=== PATIENT | female | born 1940 | race Caucasian/White ===

== ENCOUNTER 2019-12-14 20:44 | Inpatient (IN) | payer MEDICARE, OTHER ==
[~2019-12-14] VITALS: Ht 165.1 cm; Wt 132.0 kg
--- OUTSIDE RECORDS SUMMARY | ~2019-12-14 | XMS | Encounter Summary ---
Demographics + + + | Address | [address] | | | [place] [address] | + + + | Home Phone | | + + + | Preferred Language | Unknown | + + + | Marital Status | | + + + | Sabianist Affiliation | 1077 | + + + | Race | Unknown | + + + | Ethnic Group | Unknown | + + + Author + + + | Author | [facility] | | | and [place] | + + + | Organization | [facility] | | | and [place] | + + + | Address | Unknown | + + + | Phone | Unavailable | + + + Support + + +---------+ + | Name | Relationship | Address | Phone | + + +---------+ + | Chloe Harmon | ECON | Unknown | | + + +---------+ + | Cinthya Pierre ECON | Unknown | | + + +---------+ + Care Team Providers + +------+ + | Care Warp Tier Name | Role | Phone | + +------+ + | Karen Alvarado MD | PCP | | + +------+ + Reason for Visit Auth/Cert +--------+--------+ + + + + | Status | Reason | Specialty | Diagnoses / | Referred By | Referred To | | | | | Procedures | Contact | Contact | +--------+--------+ + + + + | | | | Diagnoses | | Jonathan | | | | | Endometrial | | Mellisa Barry, | | | | | hyperplasia | | MD [address] | | | | | with atypia | | [address] | | | | | | | [address] | | | | | Endometrial | | [place] | | | | | hyperplasia | | [phone] Phone: | | | | | with atypia | | [phone] | | | | | [[phone]] | | Fax: | | | | | Procedures | | [phone] | | | | | ND | | | | | | | LAP,PELVIC | | | | | | | LYMPHADENECT | | | | | | | MIGUEL [place] | | | | | | | INTRAOPERATI | | | | | | | VE SENTINEL | | | | | | | LYMPH NODE | | | | | | | ID W DYE | | | | | | | INJECTION | | | | | | | ND | | | | | | | LAPAROSCOPY | | | | | | | W TOT | | | | | | | HYSTERECTUTE | | | | | | | OMAYRA <=250 | | | | | | | GRAM W | | | | | | | TUBE/OVARY | | | | | | | ROBOTIC | | | | | | | ASSISTED XI | | | | | | | HYSTERECTOMY | | | | | | | WITH | | | | | | | BILATERAL | | | | | | | SALPINGECTOM | | | | | | | Y | | | +--------+--------+ + + + + Encounter Details +--------+ + + + + | Date | Type | Department | Care Team | Description | +--------+ + + + + | 10/09/ | Anesthesia | [facility] | Paul Russo, | | | 2019 | Event | [facility] | [address] | | | | | [facility] [address] | [place] [address] | | | | | [place] | [phone] | | | | | [address] | | | | | | [phone] | Yu Charles, | | | | | | CHITO Student | | +--------+ + + + + Anesthesia Record + + + + + | Procedure Name | Responsible | Anesthesia Start | Anesthesia Stop Time | | | Anesthesiologist | Time | | + + + + + | ROBOTIC ASSISTED XI | Paul Russo MD | 10/09/1923 | 10/09/19 0909 | | HYSTERECTOMY WITH | | | | | BILATERAL | | | | | SALPINGO-OOPHORECTOM | | | | | Y AND BILATERAL | | | | | SENTINEL LYMPH NODE | | | | | EXCISION (Bilateral | | | | | Abdomen) | | | | + + + + + +----+---+ + + | Da | T | Event | Comment | | te | i | | | | | m | | | | | e | | | +----+---+ + + | 02 | 0 | | | | /2 | 6 | | | | 4/ | 4 | | | | 20 | 9 | | | | 20 | | | | +----+---+ + + | | 0 | An Checkout | Pre-use anesthesia machine/equipment checkout. | | | 7 | | | | | 2 | | | | | 3 | | | +----+---+ + + | | 0 | An Start | Reassessment prior to anesthesia induction/procedure. | | | 7 | | | | | 2 | | | | | 3 | | | +----+---+ + + | | 0 | Preoxygenat | | | | 7 | ed | | | | 2 | | | | | 8 | | | +----+---+ + + | | 0 | An | | | | 7 | Induction | | | | 3 | | | | | 1 | | | +----+---+ + + | | 0 | Art Line | | | | 7 | Start | | | | 3 | | | | | 3 | | | +----+---+ + + | | 0 | An | | | | 7 | Intubation | | | | 3 | | | | | 4 | | | +----+---+ + + | | 0 | Art Line | | | | 7 | Stop | | | | 3 | | | | | 8 | | | +----+---+ + + | | 0 | [place] | | | | 7 | 43-degrees | | | | 5 | | | | | 2 | | | +----+---+ + + | | 0 | Pre-Procedu | | | | 7 | ral Timeout | | | | 5 | Completed | | | | 3 | | | +----+---+ + + | | 0 | First | | | | 7 | Inc/Proc St | | | | 5 | | | | | 4 | | | +----+---+ + + | | 0 | Quick Note | Steep trendelenburg | | | 8 | | | | | 0 | | | | | 2 | | | +----+---+ + + | | 0 | AN No | TOF 4/4 with sustained tetanus. | | | 8 | Residual | | | | 5 | NMB | | | | 3 | | | +----+---+ + + | | 0 | Breathing | | | | 8 | Spontaneous | | | | 5 | ly | | | | 3 | | | +----+---+ + + | | 0 | [place] off | | | | 8 | | | | | 5 | | | | | 3 | | | +----+---+ + + | | 0 | Oropharynx | | | | 8 | Suctioned | | | | 5 | | | | | 4 | | | +----+---+ + + | | 0 | Extubated | | | | 8 | Awake | | | | 5 | | | | | 9 | | | +----+---+ + + | | 0 | an stop | #9 oral airway placed. Head of bed elevated. Simple mask | | | 9 | data | | | | 0 | | | | | 1 | | | +----+---+ + + | | 0 | An Stop | Patient handed off to recovery nurse. Vss. Simple mask and | | | 9 | | airway. Reviewed students charting | | | 9 | | | +----+---+ + + +------+ | Meds | +------+ + + + | Name | Total | + + + | fentaNYL | 150 mcg | + + + | HYDROmorphone | 0.5 mg | + + + | lidocaine 2% | 100 mg | + + + | propofol | 180 mg | + + + | rocuronium | 75 mg | + + + | ePHEDrine | 27.5 mg | + + + | phenylephrine | 250 mcg | + + + | phenylephrine | 570 mcg | + + + | ondansetron | 4 mg | + + + | dexamethasone | 10 mg | + + + | sugammadex | 400 mg | + + + | ceFAZolin (ANCEF, KEFZOL) 100 | 3 g | | mg/mL IV syringe 3 g | | + + + | metroNIDAZOLE in saline (FLAGYL) | 500 mg | | IVPB 500 mg | | + + + | balanced electrolytes in water | 1,200 mL | | (PLASMALYTE-148/NORMOSOL-R) | | | infusion | | + + + + + | Name | + + | N2O Flow Rate (L/Min) | + + | O2 Flow Rate (L/Min) | + + | Insp O2 | + + | Exp N2O | + + | Exp SEV | + + | Air Flow Rate (L/Min) | + + + + | No blood administrations on file. | + + +--------+ + + + | Type | Details | Placement | Removal | +--------+ + + + | Wound | 10/09/19; 0835; Incision; | 10/09/1935 by | | | | abdomen; 5 incision sites | Melba Kay, | | | | | RN | | +--------+ + + + | Wound | 10/09/19; 0835; Incision; | 10/09/1935 by | | | | perineum | Melba Kay, | | | | | RN | | +--------+ + + + | Wound | 10/09/19; 0835; Incision; vagina; | 10/09/1935 by | | | | cervical cuff closure | Melba Kay, | | | | | RN | | +--------+ + + + | Periph | 10/09/19; 0603; Left; Forearm; | 10/09/19 0603 by | 12/11/192332 by | | eral | [id number] catheter system; | Glenna Jacobo RN | Aracelis Crum RN | | IV | 20 gauge, 1 in length; | | | | | intradermal injection; removed in | | | | | past; 12/11/19; 2332 | | | +--------+ + + + | Arteri | 10/09/19; 732 (created via | 10/09/19732 by | 10/09/19953 by | | al | procedure documentation); | Yu Charles CRNA | Maxine Rizo RN | | Line | Chlorhexidine/Isopropyl Alcohol; | Student | | | | Yes; under GA; Left; radial | | | | | artery; 20 gauge; continuous | | | | | blood pressure monitoring; | | | | | ultrasound guided; arm board, | | | | | secured with sterile tape strips, | | | | | other (see comments); 10/09/19; | | | | | 09 | | | +--------+ + + + | Airway | Placement Date: 10/09/19; | 10/09/19733 by | 10/09/19 0859 by | | | Placement Time: 733 (created via | Yu Charles CRNA | Yu Charles CRNA | | | procedure documentation); Mask | Student | Student | | | Ventilation: EZ; Airway Grade: | | | | | 2a; Successful Technique: video | | | | | scope (elective videoscope); | | | | | Laryngoscope Blade Size: 3; | | | | | Attempts: 1; Airway Type: | | | | | endotracheal; Size: 7.5; Airway | | | | | Tube Secured At: 22; Trauma: | | | | | none; Other Equipment: stylette; | | | | | Placement Check: exhaled CO2 | | | | | detection device, video | | | | | laryngoscope, bilateral chest | | | | | rise, breath sounds equal | | | | | bilaterally; Removal Date: | | | | | 10/09/19; Removal Time: 858 | | | +--------+ + + + | Periph | 10/09/19; 733 (created via | 10/09/19733 by | 12/11/192332 by | | eral | procedure documentation); Right; | Yu Charles CRNA | Aracelis Crum RN | | IV | Distal; Wrist; 20 gauge; removed | Student | | | | in past; 12/11/19; 2333 | | | +--------+ + + + | Urethr | 10/09/19; 0751; indicated due to | 10/09/19 0751 by | 10/09/19 0846 by | | al | specific surgical procedure; | Melba Kay, | Melba Kay, | | Cathet | Smallest Catheter, Perineum | RN | RN | | er | cleaned, Second person present; | | | | | All staff performed hand hygiene, | | | | | Hand hygiene re-performed after | | | | | perineum cleaned, Site prep, | | | | | Balloon was not pre-inflated to | | | | | test, Checked for appropriate | | | | | urine flow prior to balloon | | | | | inflation; Bag positioned below | | | | | the bladder, System checked to | | | | | verify closed connections & | | | | | no dependent loops, | | | | | obstructions/kinks; indwelling | | | | | double lumen catheter; latex; 16; | | | | | None; 1; 5; 10; other (see | | | | | comments) (general); drainage bag | | | | | to dependent drainage; urethral | | | | | catheter removed; Removed by R. | | | | | [place] per Dr. Jonathan ARELLANO; | | | | | short term use; 10/09/19; 0846 | | | +--------+ + + + documented in this encounter Social History + +-------+ +--------+------+ | Tobacco Use | Types | Packs/Day | Years | Date | | | | | Used | | + +-------+ +--------+------+ | Never Smoker | | | | | + +-------+ +--------+------+ + +---+---+---+ | Smokeless Tobacco: | | | | | Never Used | | | | + +---+---+---+ + + +---------+ + | Alcohol Use | Drinks/Week | oz/Week | Comments | + + +---------+ + | Yes | | | Very, very rare | | | | | (once a year) wine | + + +---------+ + + + + + | Alcohol Habits | Answer | Date Recorded | + + + + | How often do you have a drink containing | Monthly or less | 10/06/2019 | | alcohol? | | | + + + + | How many drinks containing alcohol do you | 1 or 2 | 10/06/2019 | | have on a typical day when you are | | | | drinking? | | | + + + + | How often do you have six or more drinks on | Not asked | | | one occasion? | | | + + + + + + + | Sex Assigned at | Date Recorded | | | | + + + | Not on file | | + + + + + + + | Job Start Date | Occupation | Industry | + + + + | Not on file | Not on file | Not on file | + + + + + + + + | Travel History | Travel Start | Travel End | + + + + + + | No recent travel history available. | + + documented as of this encounter Plan of Treatment +--------+---------+ + + + | Date | Type | Specialty | Care Team | Description | +--------+---------+ + + + | 07/15/ | Office | Sleep Medicine | [facility] | | | 2019 | Visit | | [address] | | | | | | [place] | | | | | | [address] | | | | | | | | +--------+---------+ + + + documented as of this encounter Procedures + +--------+ + + + | Procedure Name | Priori | Date/Time | Associated Diagnosis | Comments | | | ty | | | | + +--------+ + + + | ANE PERIPHERAL IV | Routin | 10/09/2019 | | Results for this | | LINE NOTE | e | 8:17 AM | | procedure are in the | | | | PST | | results section. | + +--------+ + + + | ANE ARTERIAL LINE | Routin | 10/09/2019 | | Results for this | | NOTE | e | 8:16 AM | | procedure are in the | | | | PST | | results section. | + +--------+ + + + | ANE AIRWAY NOTE | Routin | 10/09/2019 | | Results for this | | | e | 8:15 AM | | procedure are in the | | | | PST | | results section. | + +--------+ + + + documented in this encounter Results PIV (10/09/2019 8:17 AM PST) + + + | Narrative | Performed At | + + + | Yu Charles CRNA Student 10/09/2019 8:18 AM | | | Intravenous Line Placement 10/09/2019 7:34 AM Indication: routine | | | Preparation: alcohol patient was: under GA Side: right | | | Orientation: distal Vein location: wrist Size: 20 g Localization | | | technique: landmark Securement: transparent dressing Placed by: | | | Yu Charles CRNA Student Authorizing provider: Paul Russo | | | Please see intraoperative grid for any additional medication | | | documentation. | | + + + Darlene (10/09/2019 8:16 AM PST) + + + | Narrative | Performed At | + + + | Yu Charles CRNA Student 10/09/2019 8:17 AM Arterial | | | Line Placement 10/09/2019 7:33 AM Indication: continuous blood | | | pressure monitoring Prep solution: chlorhexidine/isoproplyl alcohol | | | Sterile barrier used: drape Patient was: under GA Laterality: left | | | Artery:radial Size: 20 g Localization technique: ultrasound | | | Securement: transparent dressing, sterile tape strips and arm board | | | Performed by: Yu Charles CRNA Student Authorizing provider: | | | Paul Russo MD Please see intraoperative grid for any | | | additional medication documentation. | | + + + Airway (10/09/2019 8:15 AM PST) + + + | Narrative | Performed At | + + + | Yu Charles CRNA Student 10/09/2019 8:16 AM Anesthesia | | | Airway Placement 10/09/2019 7:34 AM Preprocedure check: patient | | | identified, suction, airway assessed, oxygen, airway equipment | | | checked and patient reassessment prior to induction Rapid Sequence | | | Induction: no Mask ventilation: easy External maneuver: ramp | | | position Successful technique: videoscope (elective videoscope) | | | Laryngoscope blade size: 3 Airway grade: 2a (Partial view of | | | glottis) Other equipment: stylette Attempts: 1 Airway type: | | | endotracheal Size: 7.5 Cuffed: cuffed Route, reference point: right | | | side of mouth Tube depth: 22 cm Tube secured with: adhesive tape | | | Trauma: none Tube placement verification: bilateral chest rise, equal | | | bilateral breath sounds, carbon dioxide detection and video | | | laryngoscope Performing provider: Yu Charles CRNA Student | | | Authorizing provider: Paul Russo MD Please see | | | intraoperative grid for any additional medication documentation. | | + + + documented in this encounter Visit Diagnoses Not on filedocumented in this encounter Administered Medications + +---------+ +------+------+------+ | Medication Order | MAR | Action | Dose | Rate | Site | | | Action | Date | | | | + +---------+ +------+------+------+ | balanced electrolytes in water | New Bag | 10/09/19 | | | | | (PLASMALYTE-148/NORMOSOL-R) | | 20 7:54 | | | | | infusion at 10-100 mL/hr, | | AM PST | | | | | Intravenous, CONTINUOUS, Starting | | | | | | | 10/09/19 at 0600, TKO., | | | | | | | Pre-op | | | | | | + +---------+ +------+------+------+ +---------+ +---+ +---+ | New Bag | 10/09/19 | | 10 mL/hr | | | | 20 6:04 | | | | | | AM PST | | | | +---------+ +---+ +---+ +---+---+ | | | +---+---+ + +-------+ +-----+---+---+ | ceFAZolin (ANCEF, KEFZOL) 100 | Given | 10/09/19 | 3 g | | | | mg/mL IV syringe 3 g 3 g, | | 20 7:37 | | | | | Intravenous, Administer over 30 | | AM PST | | | | | Minutes, Prior to Incision, | | | | | | | Starting 10/09/19 at 0532, For | | | | | | | 1 dose, Pre-op, Indications: | | | | | | | Surgical Prophylaxis | | | | | | + +-------+ +-----+---+---+ +---+---+ | | | +---+---+ + +-------+ +-------+---+---+ | dexamethasone (DECADRON) 10 | Given | 10/09/19 | 10 mg | | | | mg/mL injection Intravenous, | | 20 7:41 | | | | | PRN, Starting 10/09/19 at | | AM PST | | | | | 0741, Anesthesia Intra-op | | | | | | + +-------+ +-------+---+---+ +---+---+ | | | +---+---+ + +-------+ +-------+---+---+ | ePHEDrine 50 mg/mL injection | Given | 10/09/19 | 10 mg | | | | Intravenous, PRN, Starting Mon | | 20 8:44 | | | | | 10/09/19 at 0736, Anesthesia | | AM PST | | | | | Intra-op | | | | | | + +-------+ +-------+---+---+ +-------+ +--------+---+---+ | Given | 10/09/19 | 5 mg | | | | | 20 7:47 | | | | | | AM PST | | | | +-------+ +--------+---+---+ | Given | 10/09/19 | 7.5 mg | | | | | 20 7:43 | | | | | | AM PST | | | | +-------+ +--------+---+---+ +---+---+ | | | +---+---+ + +-------+ +--------+---+---+ | fentaNYL (PF) injection | Given | 10/09/19 | 50 mcg | | | | Intravenous, PRN, Starting Mon | | 20 8:03 | | | | | 10/09/19 at 0803, Anesthesia | | AM PST | | | | | Intra-op | | | | | | + +-------+ +--------+---+---+ +-------+ +---------+---+---+ | Given | 10/09/19 | 100 mcg | | | | | 20 7:29 | | | | | | AM PST | | | | +-------+ +---------+---+---+ +---+---+ | | | +---+---+ + +-------+ +--------+---+---+ | HYDROmorphone (DILAUDID) 2 | Given | 10/09/19 | 0.5 mg | | | | mg/mL injection Intravenous, | | 20 8:01 | | | | | PRN, Starting 10/09/19 at | | AM PST | | | | | 0801, Anesthesia Intra-op | | | | | | + +-------+ +--------+---+---+ +---+---+ | | | +---+---+ + +-------+ +--------+---+---+ | lidocaine (PF) 2% injection | Given | 10/09/19 | 100 mg | | | | Intravenous, PRN, Starting Mon | | 20 7:31 | | | | | 10/09/19 at 0731, Anesthesia | | AM PST | | | | | Intra-op | | | | | | + +-------+ +--------+---+---+ +---+---+ | | | +---+---+ + +-------+ +--------+---+---+ | metroNIDAZOLE in saline | Given | 10/09/19 | 500 mg | | | | (FLAGYL) IVPB 500 mg 500 mg, | | 20 7:25 | | | | | Intravenous, Administer over 1 | | AM PST | | | | | Hours, Prior to Incision, | | | | | | | Starting 10/09/19 at 0532, For | | | | | | | 1 dose, Do not refrigerate., | | | | | | | Pre-op, Indications: Surgical | | | | | | | Prophylaxis | | | | | | + +-------+ +--------+---+---+ +---+---+ | | | +---+---+ + +-------+ +------+---+---+ | ondansetron (ZOFRAN) injection | Given | 10/09/19 | 4 mg | | | | Intravenous, PRN, Starting Mon | | 20 8:43 | | | | | 10/09/19 at 0843, Anesthesia | | AM PST | | | | | Intra-op | | | | | | + +-------+ +------+---+---+ +---+---+ | | | +---+---+ + +-------+ +---------+---+---+ | phenylephrine (BERTO-SYNEPHRINE, | Given | 10/09/19 | 100 mcg | | | | VAZCULEP) 10 mg/mL injection | | 20 7:46 | | | | | Intravenous, PRN, Starting Mon | | AM PST | | | | | 10/09/19 at 0734, Anesthesia | | | | | | | Intra-op | | | | | | + +-------+ +---------+---+---+ +-------+ +---------+---+---+ | Given | 10/09/19 | 150 mcg | | | | | 20 7:34 | | | | | | AM PST | | | | +-------+ +---------+---+---+ +---+---+ | | | +---+---+ + + + +---------+-------+---+ | phenylephrine (BERTO-SYNEPHRINE, | Rate/Dos | 10/09/19 | 50 | 0.3 | | | VAZCULEP) 10 mg/mL injection | e Change | 20 8:43 | mcg/min | mL/hr | | | Intravenous, CONTINUOUS PRN, | | AM PST | | | | | Starting 10/09/19 at 0747, | | | | | | | Anesthesia Intra-op | | | | | | + + + +---------+-------+---+ + + +---------+-------+---+ | Rate/Dose Change | 10/09/19 | 10 | 0.1 | | | | 20 8:37 | mcg/min | mL/hr | | | | AM PST | | | | + + +---------+-------+---+ | Restarted | 10/09/19 | 15 | 0.1 | | | | 20 8:31 | mcg/min | mL/hr | | | | AM PST | | | | + + +---------+-------+---+ +---+---+ | | | +---+---+ + +-------+ +-------+---+---+ | propofol (DIPRIVAN) injection | Given | 10/09/19 | 30 mg | | | | Intravenous, PRN, Starting Mon | | 20 8:00 | | | | | 10/09/19 at 0800, Anesthesia | | AM PST | | | | | Intra-op | | | | | | + +-------+ +-------+---+---+ +-------+ +--------+---+---+ | Given | 10/09/19 | 150 mg | | | | | 20 7:31 | | | | | | AM PST | | | | +-------+ +--------+---+---+ +---+---+ | | | +---+---+ + +-------+ +-------+---+---+ | rocuronium (ZEMURON) injection | Given | 10/09/19 | 75 mg | | | | Intravenous, PRN, Starting Mon | | 20 7:32 | | | | | 10/09/19 at 0732, Anesthesia | | AM PST | | | | | Intra-op | | | | | | + +-------+ +-------+---+---+ +---+---+ | | | +---+---+ + +-------+ +--------+---+---+ | sugammadex (BRIDION) injection | Given | 10/09/19 | 300 mg | | | | Intravenous, PRN, Starting Mon | | 20 8:52 | | | | | 10/09/19 at 0845, Anesthesia | | AM PST | | | | | Intra-op | | | | | | + +-------+ +--------+---+---+ +-------+ +--------+---+---+ | Given | 10/09/19 | 100 mg | | | | | 20 8:45 | | | | | | AM PST | | | | +-------+ +--------+---+---+ +---+---+ | | | +---+---+ documented in this encounter"
--- OUTSIDE RECORDS SUMMARY | ~2019-12-14 | XMS | Encounter Summary ---
Demographics + + + | Address | [address] | | | [place] [address] | + + + | Home Phone | | + + + | Preferred Language | Unknown | + + + | Marital Status | | + + + | Mu-Ism Affiliation | 1077 | + + + | Race | Unknown | + + + | Ethnic Group | Unknown | + + + Author + + + | Author | [facility] | | | and [place] | + + + | Organization | [facility] | | | and [place] | + + + | Address | Unknown | + + + | Phone | Unavailable | + + + Support + + +---------+ + | Name | Relationship | Address | Phone | + + +---------+ + | Chloe Harmon | ECON | Unknown | | + + +---------+ + | Cinthya Hook | ECON | Unknown | | + + +---------+ + Care Team Providers + +------+ + | Care Greenhouse Florist Name | Role | Phone | + +------+ + | Karen Alvarado MD | PCP | | + +------+ + Encounter Details +--------+---------+ + + + | Date | Type | Department | Care Team | Description | +--------+---------+ + + + | 04/05/ | Surgery | [facility] | Ghanshyam Caballero MD | COLONOSCOPY | | 2019 | | MED CTR [facility] INTRA OP | [address] | | | | | [address] | [place], [place] | | | | | [place], [place] | [address] | | | | | [address] | [phone] | | | | | [phone] | | | +--------+---------+ + + + Social History + +-------+ +--------+------+ | Tobacco [...] + + +---------+ + + + + | Sex Assigned [...] + + documented as of this encounter Last Filed Vital Signs + + + + + | Vital Sign | Reading | Time Taken | Comments | + + + + + | Blood Pressure | 118/54 | 04/05/2019 8:30 AM | | | | | PDT | | + + + + + | Pulse | 56 | 04/05/2019 8:36 AM | | | | | PDT | | + + + + + | Temperature | 36.4 C (97.5 F) | 04/05/2019 8:30 AM | | | | | PDT | | + + + + + | Respiratory Rate | 18 | 04/05/2019 8:50 AM | | | | | PDT | | + + + + + | Oxygen Saturation | 98% | 04/05/2019 8:50 AM | | | | | PDT | | + + + + + | Inhaled Oxygen | - | - | | | Concentration | | | | + + + + + | Weight | 127.5 kg (281 lb 1.4 | 04/05/2019 7:14 AM | | | | oz) | PDT | | + + + + + | Height | 165.1 cm (5' 5") | 04/05/2019 7:14 AM | | | | | PDT | | + + + + + | Body Mass Index | 46.78 | 04/05/2019 7:14 AM | | | | | PDT | | + + + + + documented in this encounter Medications at Time of Discharge + + + +---------+--------+ + | Medication | Sig | Dispensed | Refills | Start | End Date | | | | | | Date | | + + + +---------+--------+ + | aspirin 81 mg EC | Take 81 mg by mouth | | 0 | | | | tablet | Daily. | | | | | + + + +---------+--------+ + | atenolol | Take 25 mg by mouth | | 0 | | | | (TENORMIN) 50 mg | Daily. | | | | | | tablet | | | | | | + + + +---------+--------+ + | Calcium | Take by mouth Daily | | 0 | | | | Carbonate-Vitamin D | as needed. | | | | | | (CALCIUM-D PO) | | | | | | + + + +---------+--------+ + | furosemide (LASIX) | Take 40 mg by mouth | | 0 | | | | 40 mg tablet | Daily. | | | | | + + + +---------+--------+ + | levothyroxine | Take 150 mcg by | | 0 | | | | (SYNTHROID) 150 mcg | mouth every morning | | | | | | tablet | (before breakfast). | | | | | + + + +---------+--------+ + | potassium chloride | Take 20 mEq by mouth | | 0 | | | | (K-DUR) 20 mEq ER | Daily. | | | | | | tablet | | | | | | + + + +---------+--------+ + | risedronate | Take 150 mg by mouth | | 0 | | | | (ACTONEL) 150 MG | Every 30 days. | | | | | | tablet | | | | | | + + + +---------+--------+ + | UNABLE TO FIND | Med Name:Resmed | | 0 | | | | | AirSense 10 autoset | | | | | | | CPAP: 6-12cm with | | | | | | | oxygen 2 l/min. | | | | | + + + +---------+--------+ + | sulfaSALAzine | Take 500 mg by mouth | | 0 | | | | (AZULFIDINE) 500 mg | 2 times daily. | | | | 0 | | tablet | | | | | | + + + +---------+--------+ + documented as of this encounter Plan of Treatment +--------+---------+ + + + | Date | Type | Specialty | Care Team | Description | +--------+---------+ + + + | 07/15/ | Office | Sleep Medicine | [facility] PA | | | 2020 | Visit | | [address] | | | | | | [place] | | | | | | [id number] | | | | | | | | +--------+---------+ + + + documented as of this encounter Procedures + +--------+ + + + | Procedure Name | Priori | Date/Time | Associated Diagnosis | Comments | | | ty | | | | + +--------+ + + + | SURGICAL PATHOLOGY | Routin | 04/05/2019 | | Results for this | | EXAM | e | 8:04 AM | | procedure are in the | | | | PDT | | results section. | + +--------+ + + + | COLONOSCOPY | | 04/05/2019 | Morbid obesity | | | | | 7:54 AM | (HCC) Obstructive | | | | | PDT | sleep apnea (adult) | | | | | | (pediatric) Special | | | | | | screening for | | | | | | malignant neoplasms, | | | | | | colon | | + +--------+ + + + documented in this encounter Results Surgical Pathology Exam (04/05/2019 8:04 AM PDT) + + | Specimen | + + | | + + + + + | Narrative | Performed At | + + + | SPECIMEN(S): A CECAL COLON POLYP SPECIMEN SOURCE: A. CECAL | [facility] | | COLON POLYP CLINICAL HISTORY: E66.01 (morbid [severe] obesity due | [facility] | | to excess calories), G47.33 (obstructive sleep apnea [adult] | | | [pediatric]), Z12.11 (encounter for screening for malignant neoplasm | | | of colon) MICROSCOPIC DESCRIPTION: Histologic sections of all | | | submitted blocks are examined by light microscopy. These findings, | | | together with the gross examination, support the pathologic diagnosis. 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 [facility]:C2NR GROSS DESCRIPTION: The | | | specimen, labeled "EL, cecal colon polyp," is received in formalin and | | | consists of a 0.5 cm greatest dimension irregular manuel-white soft | | | tissue fragment. The specimen is entirely submitted in cassette | | | (A1). [place] (under the direct supervision of a pathologist) The | | | Gross Description was prepared using a voice recognition system. The | | | report was reviewed for accuracy; however, sound-alike word errors, | | | addition and/or deletions may occur. If there is any question about | | | this report, please contact Client Services. PERFORMING | | | LABORATORY: The technical component was performed by [facility] | | | [facility], [address] [place] [address] ([employer]: | | | Chrissie Brooks MD; CLIA# [id number]). Professional interpretation was | | | performed by [facility], [address] | | | [place] [address] ([employer]: Roque Tolbert D.O.; CLIA#: | | | [id number]). Diagnostician: Francisco Castellanos MD Pathologist | | | Electronically Signed 04/06/2019 | | + + + + +---------+ + + | Performing | Address | City/State[facility] | Phone Number | | Organization | | | | + +---------+ + + | [facility] | | | | | [facility] | | | | + +---------+ + + documented in this encounter Visit Diagnoses + + | Diagnosis | + + | Morbid obesity (HCC) Morbid obesity | + + | Obstructive sleep apnea (adult) (pediatric) | + + | Special screening for malignant neoplasms, colon | + + documented in this encounter
--- OUTSIDE RECORDS SUMMARY | ~2019-12-14 | XMS | Encounter Summary ---
Demographics + + + | Address | [address] | | | [place] [address] | + + + | Home Phone | | + + + | Preferred Language | Unknown | + + + | Marital Status | | + + + | Baptist Affiliation | 1077 | + + + | Race | Unknown | + + + | Ethnic Group | Unknown | + + + Author + + + | Author | [facility] | | | and [place] | + + + | Organization | [facility] | | | and [...] Team Providers + +------+ + | Care Ore Puncher Name | Role | Phone | + +------+ + | Karen Alvarado MD | PCP | | + +------+ + Reason for Visit Evaluate & Treat (Routine) + +--------+ + + + + | Status | Reason | Specialty | Diagnoses / | Referred By | Referred To | | | | | Procedures | Contact | Contact | + +--------+ + + + + | Authorizatio | | Gynecologic | Diagnoses | Luana, | Jonathan, | | n not | | Oncology | Endometrial | DO Shelbie | Mellisa Barry, | | Required | | | | [address] | 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 | [address] | | | | | ial | [place], [place] | [address] | | | | | neoplasia | [address] | [place] | | | | | (EIN) Other | Phone: | [phone] Phone: | | | | | specified | [phone] | [phone] | | | | | postprocedur | | Fax: | | | | | al states | | [phone] | | | | | Procedures | | | | | | | METAL FITTER referral | | | | | | | placed in | | | | | | | nursing in | | | | | | | basket | | | | | | | 08.10.2019 | | | | | | | ka | | | + +--------+ + + + + Encounter Details +--------+---------+ + + + | Date | Type | Department | Care Team | Description | +--------+---------+ + + + | 10/30/ | Office | [facility] | Mellisa Castillo | Endometrial | | 2020 | Visit | [facility] | MD Asha [address] | hyperplasia with | | | | ONCOLOGY [address] | [address] | atypia (Primary Dx) | | | | [address] | [place] [address] | | | | | [place], [place] | [phone] | | | | | [address] | | | | | | [phone] | | | +--------+---------+ + + + [...] + + documented as of this encounter Progress Notes Mellisa Castillo MD - 10/31/2019 11:30 AM PDTFormatting of this note might be differen t from the original. [facility] Telephonic Visit Mellisa Castillo MD Date of Telephone Visit: 10/31/2019 Poppy Bah, 79 y.o. Cancer Staging No matching staging information was found for the patient. Assessment and Plan Poppy is doing well. She is not having any postoperative symptoms that are concerning. I reviewed the pathology report with her and she would like a copy for her records, my staf f will mail that to her home address. I recommend that Poppy continue to not do heavy lifting for about 3 more weeks and then she can go back to her normal activities which she describes as "routine housework". As she has benign pathology, I will release her to the care of her local doctors from here on. She thanked me for the phone encounter. No orders of the defined types were placed in this encounter. Requested Prescriptions No prescriptions requested or ordered in this encounter HPI No history exists. Interim History: I am meeting with Poppy by telephone today because of the current COVID outbreak. We agreed to meet by telephone and she reports that she is doing well. She is not having a ny bowel or bladder changes. She wears a pad because of stress incontinence and she feels t hat there is a spot on her vulva that may be irritated because of the pad that she has been wearing. Other than this she is having absolutely no complaints and states that she feels w ell. Outpatient Medications aspirin 81 mg EC tablet Take 81 mg by mouth Daily. atenolol (TENORMIN) 50 mg tablet Take 25 mg by mouth Daily. Calcium Carbonate-Vitamin D (CALCIUM-D PO) Take by mouth Daily as needed. clobetasol (TEMOVATE) 0.05% cream Apply topically Daily as needed. RASH furosemide (LASIX) 40 mg tablet Take 40 mg by mouth Daily. HYDROcodone-acetaminophen (NORCO) 5-325 mg per tablet Take 1 tablet by mouth every 6 hours as needed. levothyroxine (SYNTHROID) 150 mcg tablet Take 150 mcg by mouth every morning (before break fast). Multiple Vitamin (MULTI VITAMIN PO) Take 1 tablet by mouth Daily. ondansetron (ZOFRAN ODT) 8 mg disintegrating tablet Take 1 tablet by mouth every 8 hours a s needed. potassium chloride (K-DUR) 20 mEq ER tablet Take 20 mEq by mouth Daily. risedronate (ACTONEL) 150 MG tablet Take 150 mg by mouth Every 30 days. UNABLE TO FIND Med Name:Resmed AirSense 10 autoset CPAP: 6-12cm with oxygen 2 l/min. 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 Lg interna hemorrhoids COLONOSCOPY N/A 04/05/2019 Procedure: COLONOSCOPY; Surgeon: Ghanshyam Caballero MD; Location: [facility] MEDICAL PROCEDURE UNIT DILATION AND CURETTAGE OF UTERUS N/A 06/12/2019 Procedure: Hysteroscopy D&C with possible myosure polypectomy; Surgeon: Eugenie Oquendo O; Location: [facility] MAIN OR KNEE ARTHROPLASTY Left 2011 KNEE ARTHROPLASTY Right 2009 TOTAL HYSTERECTOMY Bilateral 10/09/2019 Procedure: ROBOTIC ASSISTED XI HYSTERECTOMY WITH BILATERAL SALPINGO-OOPHORECTOMY AND BILA TERAL SENTINEL LYMPH NODE EXCISION; Surgeon: Mellisa Castillo MD; Location: [facility] MAIN O Family History Problem Relation Age of Onset Uterine cancer Mother Heart disease Father Diabetes Son Heart disease Maternal Grandmother Heart disease Paternal Grandmother Heart disease Paternal Grandfather Social History Socioeconomic History Marital status: Spouse name: Not on file Number of children: Not on file Years of education: Not on file Highest education level: Not on file Tobacco Use Smoking status: Never Smoker Smokeless tobacco: Never Used Substance and Sexual Activity Alcohol use: Yes Frequency: Monthly or less Drinks per session: 1 or 2 Comment: Very, very rare (once a year) wine Drug use: No Sexual activity: Not Currently Telephonic visit began at 1200 and ended at 1208 for a total of 8 minutes. This note was dictated using voice recognition software. Please contact me if there are an y questions regarding its content. Electronically signed by Mellisa Castillo MD at 10/30 12:56 PM PDTdocumented in this encounter Plan of Treatment +--------+---------+ + + + | Date | Type | Specialty | Care Team | Description | +--------+---------+ + + + | 07/15/ | Office | Sleep Medicine | [facility] Villa PA | | 2019 | Visit | | [address] | | | | | | [place] | | | | | | [id number] | | | | | | | | +--------+---------+ + + + documented as of this encounter Visit Diagnoses + + | Diagnosis | + + | Endometrial hyperplasia with atypia - Primary | + + documented in this encounter
--- OUTSIDE RECORDS SUMMARY | ~2019-12-14 | XMS | Encounter Summary ---
Demographics + + + | Address | [address] | | | [place] [address] | + + + | Home Phone | | + + + | Preferred Language | Unknown | + + + | Marital Status | | + + + | Pentecostalism Affiliation | 1077 | + + + | Race | Unknown | + + + | Ethnic Group | Unknown | + + + Author + + + | Author | [facility] | | | and [place] | + + + | Organization | [facility] | | | and [...] Team Providers + +------+ + | Care Assistant Director Name | Role | Phone | + +------+ + | Karen Alvarado MD | PCP | | + +------+ + Encounter Details +--------+ + + + + | Date | Type | Department | Care Team | Description | +--------+ + + + + | 02/06/ | Hospital | [facility] | Mellisa Castillo | Endometrial | | 2020 | Encounter | MED CTR | MD Asha [address] | hyperplasia with | | | | ELECTRODIAGNOSTICS | [address] | atypia; | | | | [address] [place] | [place] [address] | Hypertension, | | | | [place] [address] | [phone] | unspecified type | | | | [phone] | | | +--------+ + + + + Social History + +-------+ [...] + + documented as of this encounter Medications at Time of Discharge + + + +---------+ + + | Medication | Sig | Dispensed | Refills | Start | End Date | | | | | | Date | | + + + +---------+ + + | aspirin 81 mg EC | Take 81 mg by mouth | | 0 | | | | tablet | Daily. | | | | | + + + +---------+ + + | atenolol | Take 25 mg by mouth | | 0 | | | | (TENORMIN) 50 mg | Daily. | | | | | | tablet | | | | | | + + + +---------+ + + | Calcium | Take by mouth Daily | | 0 | | | | Carbonate-Vitamin D | as needed. | | | | | | (CALCIUM-D PO) | | | | | | + + + +---------+ + + | clobetasol | Apply topically | | 0 | /16/20 | | | (TEMOVATE) 0.05% | Daily as needed. | | | 19 | | | cream | RASH | | | | | + + + +---------+ + + | furosemide (LASIX) | Take 40 mg by mouth | | 0 | | | | 40 mg tablet | Daily. | | | | | + + + +---------+ + + | | Take 1 tablet by | 30 | 0 | 20 | | | HYDROcodone-acetamin | mouth every 6 hours | tablet | | 20 | | | ophen (NORCO) 5-325 | as needed. | | | | | | mg per tablet | | | | | | + + + +---------+ + + | levothyroxine | Take 150 mcg by | | 0 | | | | (SYNTHROID) 150 mcg | mouth every morning | | | | | | tablet | (before breakfast). | | | | | + + + +---------+ + + | Multiple Vitamin | Take 1 tablet by | | 0 | | | | (MULTI VITAMIN PO) | mouth Daily. | | | | | + + + +---------+ + + | ondansetron | Take 1 tablet by | 12 | 0 | /24/20 | | | (ZOFRAN ODT) 8 mg | mouth every 8 hours | tablet | | 20 | | | disintegrating | as needed. | | | | | | tablet | | | | | | + + + +---------+ + + | potassium chloride | Take 20 mEq by mouth | | 0 | | | | (K-DUR) 20 mEq ER | Daily. | | | | | | tablet | | | | | | + + + +---------+ + + | risedronate | Take 150 mg by mouth | | 0 | | | | (ACTONEL) 150 MG | Every 30 days. | | | | | | tablet | | | | | | + + + +---------+ + + | UNABLE TO FIND | Med Name:Resmed | | 0 | | | | | AirSense 10 autoset | | | | | | | CPAP: 6-12cm with | | | | | | | oxygen 2 l/min. | | | | | + + + +---------+ + + | ibuprofen | Take 1 tablet by | 30 | 1 | 06/12/20 | | | (ADVIL,MOTRIN) 600 | mouth every 6 hours | tablet | | 19 | 0 | | MG tablet | as needed for Pain. | | | | | + + + +---------+ + + | sulfaSALAzine | Take 500 mg by mouth | | 0 | | | | (AZULFIDINE) 500 mg | 2 times daily. | | | | 0 | | tablet | | | | | | + + + +---------+ + + documented as of this encounter Plan of Treatment +--------+---------+ + + + | Date | Type | Specialty | Care Team | Description | +--------+---------+ + + + | 07/15/ | Office | Sleep Medicine | Apollo Villa PA | | | 2020 | Visit | | [address] | | | | | | [place] | | | | | | [address] | | | | | | | | +--------+---------+ + + + documented as of this encounter Procedures + +--------+ + + + | Procedure Name | Priori | Date/Time | Associated Diagnosis | Comments | | | ty | | | | + +--------+ + + + | ECG 12 LEAD | Routin | 09/21/2019 | Endometrial | Results for this | | | e | 10:13 AM | hyperplasia with | procedure are in the | | | | PST | atypia | results section. | | | | | Hypertension, | | | | | | unspecified type | | + +--------+ + + + documented in this encounter Results ECG 12 lead (09/21/2019 10:13 AM PST) + + + + + + | Component | Value | Ref Range | Performed | Pathologist | | | | | At | Signature | + + + + + + | VENTRICULAR | 63 | BPM | [facility] | | | RATE EKG | | | | | + + + + + + | ATRIAL RATE | 63 | BPM | [facility] | | + + + + + + | P-R | 168 | ms | [facility] | | | INTERVAL | | | | | + + + + + + | QRS | 78 | ms | [facility] | | | DURATION | | | | | + + + + + + | Q-T | 414 | ms | [facility] | | | INTERVAL | | | | | + + + + + + | Q-T | 423 | ms | [facility] | | | INTERVAL | | | | | | (CORRECTED) | | | | | + + + + + + | P WAVE AXIS | 76 | degrees | [facility] | | + + + + + + | QRS AXIS | 13 | degrees | [facility] | | + + + + + + | T AXIS | -42 | degrees | [facility] | | + + + + + + | INTERPRETAT | Normal sinus | | [facility] | | | ION TEXT | rhythmNonspecific T wave | | | | | | abnormality Inferior | | | | | | leads and leads I and | | | | | | aVLNo previous ECGs | | | | | | availableConfirmed by | | | | | | KEYSHAWN ROSS MD ([id number]) | | | | | | on 09/22/2019 6:09:07 AM | | | | + + + + + + + + | Specimen | + + | | + + + + + | Narrative | Performed At | + + + | | | + + + + +---------+ + + | Performing | Address | City/State/Zipcode | Phone Number | | Organization | | | | + +---------+ + + | [facility] | | | | + +---------+ + + documented in this encounter Visit Diagnoses + + | Diagnosis | + + | Endometrial hyperplasia with atypia | + + | Hypertension, unspecified type | + + documented in this encounter"
--- OUTSIDE RECORDS SUMMARY | ~2019-12-14 | XMS | Encounter Summary ---
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 Name | Role | Phone | + +------+ + | Karen Alvarado MD | PCP | | + +------+ + Reason for Visit + + + | Reason | Comments | + + + | CPAP Follow Up | | + + + Encounter Details +--------+---------+ + + + | Date | Type | Department | Care Team | Description | +--------+---------+ + + + | 07/11/ | Office | [facility] | Apollo Villa PA | LEONARDO on CPAP (Primary | | 2019 | Visit | SLEEP DISORDER [address] | [address] | Dx) | | | | [address] | [place] | | | | | [place] [id number] | [id number] | | | | | [phone] | | | +--------+---------+ + + + [...] + + + | Blood Pressure | 132/68 | 07/11/2019 10:37 AM | | | | | PST | | + + + + + | Pulse | 68 | 07/11/2019 10:37 AM | | | | | PST | | + + + + + | Temperature | - | - | | + + + + + | Respiratory Rate | 16 | 07/11/2019 10:37 AM | | | | | PST | | + + + + + | Oxygen Saturation | 96% | 07/11/2019 10:37 AM | | | | | PST | | + + + + + | Inhaled Oxygen | - | - | | | Concentration | | | | + + + + + | Weight | 125.9 kg (277 lb 9 | 07/11/2019 10:37 AM | | | | oz) | PST | | + + + + + | Height | - | - | | + + + + + | Body Mass Index | 46.19 | 06/12/2019 8:03 AM | | | | | PDT | | + + + + + documented in this encounter Progress Notes Apollo Villa PA - 07/11/2019 11:00 AM PST Subjective: Patient ID: Poppy Bah is a 79 y.o. female. HPI last office visit: 06/16/2018 date of polysomnography: 06/06/2017 AHI: 22.6 (44.5 in REM) RDI: 22.6 O2%: 60% with 196.7 minutes below 88% Machine type: ResMed AirSense 10 Mask type: Respironics AmaraView full face mask DME: [facility] in [place] pressure: 6-12 cm with oxygen at 2 L/min Median: 7.0 cm 95%: 8.0 cm maximum: 8.5 cm Nights using CPAP: 365/365 % of nights >4 hours: 100% average usage (all nights): 7:48 average usage (nights used): 7:48 AHI: 0.4 Poppy comes in for CPAP compliance and renewal of her oxygen. She is doing well with her C PAP and oxygen, wearing it nightly for the duration of her sleep. She understands the impor tance of treating her apnea and oxygen desaturation. She does not consider sleeping without it. Her CPAP is a regular part of her sleep routine. She has noticed that her equipment is starting to discolor. We discussed when she is able to replace her equipment. We also d iscussed the recommended cleaning schedule for her equipment. I have discussed the download and paperwork in detail. This shows that her sleep apnea is controlled, with an AHI of 0.4. It also shows that her leaks are controlled. Review of Systems Objective: BP 132/68 | Pulse 68 | Resp 16 | Wt 125.9 kg (277 lb 9 oz) | SpO2 96% | BMI 46.19 kg/m Physical Exam Assessment: Problem #1: OBSTRUCTIVE SLEEP APNEA ([id number]) This is controlled with CPAP and oxygen at 2 L/min. She is doing well with her CPAP usage. Plan: 1. She is to continue with CPAP indefinitely. 2. She is to go to [facility] to replace any necessary equipment. 3. Touch base with medical supplier twice per year to ensure that all equipment is satisfa ctory. I will follow up again in 1 year, sooner prn. Fifteen minutes were spent [id number], wit h the majority of time spent in counseling. Apollo Villa PA-C cc: Karen Alvarado MD lludmila, Jenny [facility] A ssistant - 07/11/2019 11:00 AM PSTFormatting of this note might be different from the origin al. 07/11/19 1000 [place]gs Depression Inventory-II Depression Score 5 - Minimal depression Insomnia Severity Index Insomnia Severity Index 1 [place] Sleepiness Scale 1. Sitting and reading 1 2. Watching TV 0 3. Sitting, inactive in a public place (e.g. a theatre or a meeting) 0 4. As a passenger in a car for an hour without a break 0 5. Lying down to rest in the afternoon when circumstances permit 1 6. Sitting and talking to someone 0 7. Sitting quietly after a lunch without alcohol 0 8. In a car, while stopped for a few minutes in traffic 0 Total score 2 SF-36v2 Score PF 34.58 RP 30.21 BP 51.51 GH 50.81 VT 46.66 SF 47.31 RE 49.2 MH 56.1 PCS 35.92 MCS 56.94 documented in this enco unter Plan of Treatment +--------+---------+ + + + | Date | Type | Specialty | Care Team | Description | +--------+---------+ + + + | 07/15/ | Office | Sleep Medicine | Apollo Villa PA | | | 2019 | Visit | | [address] | | | | | | [place] | | | | | | [phone] | | | | | | | | +--------+---------+ + + + documented as of this encounter Visit Diagnoses + + | Diagnosis | + + | LEONARDO on CPAP - Primary Obstructive sleep apnea (adult) (pediatric) | + + documented in this encounter"
--- OUTSIDE RECORDS SUMMARY | ~2019-12-14 | XMS | Clinical Summary ---
Demographics + + + | Address | [address] | | | [place] [address] | + + + | Home Phone | | + + + | Preferred Language | Unknown | + + + | Marital Status | | + + + | Confucianism Affiliation | 1077 | + + + | Race | Unknown | + + + | Ethnic Group | Unknown | + + + Author + + + | Author | [facility] | | | and [place] | + + + | Organization | [facility] | | | and [place] | + + + | Address | Unknown | + + + | Phone | Unavailable | + + + Support + + +---------+ + | Name | Relationship | Address | Phone | + + +---------+ + | Chloe Harmon | ECON | Unknown | | + + +---------+ + | Cinthya HACKETT | Unknown | | + + +---------+ + Care Team Providers + +------+ + | Care Therapist'S Assistant Name | Role | Phone | + +------+ + | Karen Alvarado MD | PCP | | + +------+ + Allergies + + + + + + | Active Allergy | Reactions | Severity | Noted | Comments | | | | | Date | | + + + + + + | Hydrochlorothiazide | Rash | Low | 05/04/20 | | | | | | 17 | | + + + + + + Medications + + + +---------+------+------+-------+ | Medication | Sig | Dispensed | Refills | Star | End | Statu | | | | | | t | Date | s | | | | | | Date | | | + + + +---------+------+------+-------+ | levothyroxine | Take 150 mcg by | | 0 | | | Activ | | (SYNTHROID) 150 mcg | mouth every morning | | | | | e | | tablet | (before breakfast). | | | | | | + + + +---------+------+------+-------+ | atenolol | Take 25 mg by mouth | | 0 | | | Activ | | (TENORMIN) 50 mg | Daily. | | | | | e | | tablet | | | | | | | + + + +---------+------+------+-------+ | Calcium | Take by mouth Daily | | 0 | | | Activ | | Carbonate-Vitamin D | as needed. | | | | | e | | (CALCIUM-D PO) | | | | | | | + + + +---------+------+------+-------+ | aspirin 81 mg EC | Take 81 mg by mouth | | 0 | | | Activ | | tablet | Daily. | | | | | e | + + + +---------+------+------+-------+ | risedronate | Take 150 mg by mouth | | 0 | | | Activ | | (ACTONEL) 150 MG | Every 30 days. | | | | | e | | tablet | | | | | | | + + + +---------+------+------+-------+ | furosemide (LASIX) | Take 40 mg by mouth | | 0 | | | Activ | | 40 mg tablet | Daily. | | | | | e | + + + +---------+------+------+-------+ | potassium chloride | Take 20 mEq by mouth | | 0 | | | Activ | | (K-DUR) 20 mEq ER | Daily. | | | | | e | | tablet | | | | | | | + + + +---------+------+------+-------+ | UNABLE TO FIND | Med Name:Resmed | | 0 | | | Activ | | | AirSense 10 autoset | | | | | e | | | CPAP: 6-12cm with | | | | | | | | oxygen 2 l/min. | | | | | | + + + +---------+------+------+-------+ | clobetasol | Apply topically | | 0 | 12/1 | | Activ | | (TEMOVATE) 0.05% | Daily as needed. | | | 6/20 | | e | | cream | RASH | | | 19 | | | + + + +---------+------+------+-------+ | Multiple Vitamin | Take 1 tablet by | | 0 | | | Activ | | (MULTI VITAMIN PO) | mouth Daily. | | | | | e | + + + +---------+------+------+-------+ | | Take 1 tablet by | 30 | 0 | 02/2 | | Activ | | HYDROcodone-acetamin | mouth every 6 hours | tablet | | 4/20 | | e | | ophen (NORCO) 5-325 | as needed. | | | 20 | | | | mg per tablet | | | | | | | + + + +---------+------+------+-------+ | ondansetron | Take 1 tablet by | 12 | 0 | 02/2 | | Activ | | (ZOFRAN ODT) 8 mg | mouth every 8 hours | tablet | | 4/20 | | e | | disintegrating | as needed. | | | 20 | | | | tablet | | | | | | | + + + +---------+------+------+-------+ | | Take 1 tablet by | 8 | 0 | 04/2 | | Activ | | HYDROcodone-acetamin | mouth every 8 hours | tablet | | 7/20 | | e | | ophen (NORCO) 5-325 | as needed for Pain | | | 20 | | | | mg per tablet | for up to 8 doses. | | | | | | + + + +---------+------+------+-------+ | ondansetron | Take 1 tablet by | 8 | 0 | 04/2 | | Activ | | (ZOFRAN ODT) 4 mg | mouth every 8 hours | tablet | | 7/20 | | e | | disintegrating | as needed for up to | | | 20 | | | | tablet | 8 doses. | | | | | | + + + +---------+------+------+-------+ Active Problems + + + | Problem | Noted Date | + + + | Endometrial hyperplasia with atypia | 08/29/2019 | + + + | Status post hysteroscopy | 06/12/2019 | + + + | Status post hysteroscopic polypectomy | 06/12/2019 | + + + | Postmenopausal bleeding | 06/12/2019 | + + + | EDEMA | | + + + | MITRAL VALVE DISORDERS | | + + + + + | Overview: ICD-10 Record update | + + + +---+ | TRICUSPID VALVE DISORDERS SPEC NONRHEUMATIC | | + +---+ + + | Overview: ICD-10 Record update | + + + +---+ | DJD (degenerative joint disease) | | + +---+ | Obesity, Class III, BMI 40-49.9 (morbid obesity) | | + +---+ | Hypothyroidism | | + +---+ | Bilateral leg edema | | + +---+ | History of rheumatic fever | | + +---+ | Diverticulitis | | + +---+ | Obstructive sleep apnea on CPAP | | + +---+ + + | Overview: Uses CPAP | + + + +---+ | Beta Blockers - Daily Use | | + +---+ | H/O TKA Total knee arthroplasty, bilateral | | + +---+ | History of colon polyps | | + +---+ + + | Overview: CECAL COLON POLYP | + + Encounters +--------+ + + + + | Date | Type | Specialty | Care Team | Description | +--------+ + + + + | 12/10/ | Emergency | Emergency Medicine | Dieudonne Gore MD | Thoracic myofascial | | 2019 | | | | strain, initial | | | | | | encounter (Primary | | | | | | Dx) | +--------+ + + + + | 10/30/ | Office | Gynecologic Oncology | Mellisa Castillo | Endometrial | | 2019 | Visit | | MD Asha | hyperplasia with | | | | | | atypia (Primary Dx) | +--------+ + + + + | 10/29/ | Telephone | Gynecologic Oncology | Nidia Torrez, | Other | | 2019 | | | RN | | +--------+ + + + + | 10/10/ | Telephone | Gynecologic Oncology | Mellisa Castillo | Results, Pathology | | 2019 | | | MD Ahsa | | +--------+ + + + + | 10/09/ | Anesthesia | | Paul Russo, | | 2019 | Event | | Yu Gómez, | | | | | | SUPERVISOR HEAT TREATING Student | | +--------+ + + + + | 10/09/ | Surgery | | Mellisa Castillo | ROBOTIC ASSISTED XI | 2019 | | | MD Asha | HYSTERECTOMY WITH | | | | | | BILATERAL | | | | | | SALPINGO-OOPHORECTOM | | | | | | Y AND BILATERAL | | | | | | SENTINEL LYMPH NODE | | | | | | EXCISION | +--------+ + + + + | 10/09/ | Hospital | | Mellisa Castillo | Endometrial | | 2020 | Encounter | | MD Asha | hyperplasia with | | | | | | atypia | +--------+ + + + + | 09/21/ | Hospital | Radiology | Mellisa Castillo | Endometrial | | 2019 | Encounter | | MD Asha | hyperplasia with | | | | | | atypia; | | | | | | Hypertension, | | | | | | unspecified type | +--------+ + + + + | 09/21/ | Transcribed | Radiology | Mellisa Castillo | Hypertension, | | 2020 | Orders | | MD Asha | unspecified type | | | | | | (Primary Dx); | | | | | | Endometrial | | | | | | hyperplasia with | | | | | | atypia | +--------+ + + + + from Last 3 Months Family History + + +------+ + | Medical History | Relation | Name | Comments | + + +------+ + | Heart disease | Father | | | + + +------+ + | Heart disease | Maternal | | | | | Grandmoth | | | | | er | | | + + +------+ + | Uterine cancer | Mother | | | + + +------+ + | Heart disease | Paternal | | | | | Grandfath | | | | | er | | | + + +------+ + | Heart disease | Paternal | | | | | Grandmoth | | | | | er | | | + + +------+ + | Diabetes | Son | | | + + +------+ + + +------+ + + | Relation | Name | Status | Comments | + +------+ + + | Brother | | Alive | | + +------+ + + | Daughter | | Alive | | + +------+ + + | Daughter | | Alive | | + +------+ + + | Daughter | | Alive | | + +------+ + + | Father | | | heart | | | | (Age | | | | | 70) | | + +------+ + + | Maternal Grandfather | | | auto accident | | | | (Age | | | | | 57) | | + +------+ + + | Maternal Grandmother | | | | | | | (Age | | | | | 65) | | + +------+ + + | Mother | | | COPD | | | | (Age | | | | | 69) | | + +------+ + + | Paternal Grandfather | | | | | | | (Age | | | | | 73) | | + +------+ + + | Paternal Grandmother | | | | | | | (Age | | | | | 86) | | + +------+ + + | Sister | | | Breast cancer | | | | (Age | | | | | 47) | | + +------+ + + | Sister | | Alive | | + +------+ + + | Sister | | Alive | | + +------+ + + | Son | | Alive | | + +------+ + + Social History + +-------+ +--------+------+ [...] recent travel history available. | + + Last Filed Vital Signs + + + + + | Vital Sign | Reading | Time Taken | Comments | + + + + + | Blood Pressure | 130/85 | 12/11/2019 11:35 PM | | | | | PDT | | + + + + + | Pulse | 78 | 12/11/2019 11:35 PM | | | | | PDT | | + + + + + | Temperature | 36.9 C (98.5 F) | 12/11/2019 6:52 PM | | | | | PDT | | + + + + + | Respiratory Rate | 16 | 12/11/2019 11:35 PM | | | | | PDT | | + + + + + | Oxygen Saturation | 94% | 12/11/2019 11:35 PM | | | | | PDT | | + + + + + | Inhaled Oxygen | - | - | | | Concentration | | | | + + + + + | Weight | 120.2 kg (265 lb) | 12/11/2019 6:52 PM | | | | | PDT | | + + + + + | Height | 167.6 cm (5' 6") | 12/11/2019 6:52 PM | | | | | PDT | | + + + + + | Body Mass Index | 42.77 | 12/11/2019 6:52 PM | | | | | PDT | | + + + + + Plan of Treatment +--------+---------+ + + + | Date | Type | Specialty | Care Team | Description | +--------+---------+ + + + | 07/15/ | Office | Sleep Medicine | Apollo Villa PA | | | 2019 | Visit | | [address] | | | | | | [place] | | | | | | [id number] | | | | | | | | +--------+---------+ + + + + + + + + | Health Maintenance | Due Date | Last Done | Comments | + + + + + | Breast Cancer | | | | | Screening | 5 | | | + + + + + | Vaccine: | | | | | Pneumococcal 65+ (1 | 5 | | | | of 2 - PCV13) | | | | + + + + + | Vaccine: Zoster (2 | | 01/23/2013 | | | of 3) | 3 | | | + + + + + | Adult Annual | | | | | Wellness Visit | 5 | | | + + + + + | Vaccine: | | 11/03/2013 | | | Dtap/Tdap/Td (2 - | 4 | | | | Td) | | | | + + + + + | Vaccine: Influenza | Completed | 05/18/2019, 05/17/2018, | | | | | 05/04/2017, Additional history | | | | | exists | | + + + + + Procedures + +--------+ + + + | Procedure Name | Priori | Date/Time | Associated Diagnosis | Comments | | | ty | | | | + +--------+ + + + | CT ANGIOGRAM | STAT | 12/11/2019 | | Results for this | | PULMONARY | | 10:20 PM | | procedure are in the | | | | PDT | | results section. | + +--------+ + + + | TROPONIN I | Timed | 12/11/2019 | | Results for this | | | | 10:04 PM | | procedure are in the | | | | PDT | | results section. | + +--------+ + + + | XR CHEST PA OR AP | STAT | 12/11/2019 | | Results for this | | | | 9:10 PM | | procedure are in the | | | | PDT | | results section. | + +--------+ + + + | COMPREHENSIVE | STAT | 12/11/2019 | | Results for this | | METABOLIC PANEL | | 9:00 PM | | procedure are in the | | | | PDT | | results section. | + +--------+ + + + | CBC WITH | STAT | 12/11/2019 | | Results for this | | DIFFERENTIAL | | 9:00 PM | | procedure are in the | | | | PDT | | results section. | + +--------+ + + + | ECG 12 LEAD | STAT | 12/11/2019 | | Results for this | | | | 6:51 PM | | procedure are in the | | | | PDT | | results section. | + +--------+ + + + | ED INFORMATION | Routin | 12/11/2019 | | | | EXCHANGE | e | 6:46 PM | | | | | | PDT | | | + +--------+ + + + +---+--------+ | | | | | Proced | | | ure | | | Note - | | | James, | | | Lab In | | | | | | Hlseve | | | n - | | | | | | 2019 | | | 6:47 | | | PM PDT | | | | | | Format | | | ting | | | of | | | this | | | note | | | might | | | be | | | differ | | | ent | | | from | | | the | | | origin | | | al.COL | | | LECTIV | | | E?NOTI | | | FICATI | | | ON?04/ | | | 27/202 | | | 0 | | | 18:45? | | | LIEUAL | | | BALDEV, | | | POPPY | | | L?MRN: | | | | | | [id number] | | | [id number] | | | riteri | | | a | | | MetSec | | | urity | | | and | | | Safety | | | No | | | recent | | | | | | Securi | | | ty | | | Events | | | | | | curren | | | tly on | | | | | | fileED | | | Care | | | Guidel | | | inesTh | | | ere | | | are | | | curren | | | tly no | | | ED | | | Care | | | Guidel | | | joyce | | | for | | | this | | | patien | | | t. | | | Please | | | check | | | your | | | facili | | | ty's | | | medica | | | l | | | record | | | s | | | system | | | .Presc | | | riptio | | | n Drug | | | | | | Report | | | (12 | | | Mo.)Rx | | | | | | Detail | | | sFill | | | Date | | | Drug | | | Descri | | | ption | | | Qty. | | | Prescr | | | iber | | | CS MED | | | | | | 2020-0 | | | 2-24 | | | HYDROC | | | ODONE- | | | ACETAM | | | IN | | | 5-325 | | | MG 30 | | | VIDHI | | | E | | | BERGMA | | | N 2 0 | | | Rx | | | [facility] | | | yMetri | | | c | | | Count | | | CS | | | II-V | | | Rx 1 | | | CS-II | | | Rx 1 | | | Quanti | | | ty | | | Dispen | | | sed 30 | | | | | | Unique | | | | | | Prescr | | | ibers | | | 1 | | | Unique | | | | | | Pharma | | | cies 1 | | | | | | Benzos | | | 0 | | | Opioid | | | s 0 | | | Long | | | Acting | | | | | | Opioid | | | s 0 | | | E.D. | | | Visit | | | Count | | | (12 | | | mo.)Fa | | | cility | | | | | | Visits | | | Low | | | Acuity | | | | | | Provid | | | ence | | | [facility] | | | l | | | Center | | | 1 0 | | | Total | | | 1 0 | | | Note: | | | Visits | | | | | | indica | | | te | | | total | | | known | | | visits | | | . | | | Medica | | | id Low | | | | | | Acuity | | | Dx | | | are | | | the | | | number | | | of | | | primar | | | y | | | diagno | | | ses on | | | the | | | Medica | | | id's | | | Low | | | Acuity | | | dx | | | list. | | | | | | Recent | | | | | | Emerge | | | ncy | | | Depart | | | ment | | | Visit | | | [facility] | | | yDate | | | Facili | | | ty | | | City | | | State | | | Type | | | Diagno | | | ses or | | | Chief | | | | | | Compla | | | int | | | Apr | | | 27, | | | 2020 | | | Provid | | | ence | | | [facility] | | [place] | | | [place] | | | Emerge | | | ncy | | | | | | pain/a | | | rm/nec | | | k/ches | | | t | | | Recent | | | | | | Inpati | | | ent | | | Visit | | | [facility] | | | yNo | | | record | | | ed | | | inpati | | | ent | | | visits | | | . Care | | | | | | TeamTh | | | ere is | | | not a | | | care | | | team | | | on | | | record | | | at | | | this | | | time. | | | Collec | | | tive | | | Portal | | | This | | | patien | | | t has | | | regist | | | ered | | | at the | | | | | | Provid | | | ence | | | [facility] | | l | | | Center | | | | | | Emerge | | | ncy | | | Depart | | | ment | | | For | | | more | | | inform | | | ation | | | visit: | | | | | | https: | | | //prov | | | .colle | | | ctivem | | | edical | | | .com/n | | | otify/ | | | [id number] | | | [phone] | | | [email or web address] | | | [phone] | | | [phone] | | | [id number] | | | | | | PLEASE | | | NOTE: | | | 1. | | | Any | | | care | | | recomm | | | endati | | | ons | | | and | | | other | | | clinic | | | al | | | inform | | | ation | | | are | | | provid | | | ed as | | | guidel | | | joyce | | | or for | | | | | | histor | | | ical | | | purpos | | | es | | | only, | | | and | | | provid | | | ers | | | should | | | | | | exerci | | | se | | | their | | | own | | | clinic | | | al | | | judgme | | | nt | | | when | | | provid | | | ing | | | care. | | | 2. | | | You | | | may | | | only | | | use | | | this | | | inform | | | ation | | | for | | | purpos | | | es of | | | treatm | | | ent, | | | paymen | | | t or | | | health | | | care | | | operat | | | ions | | | activi | | | ties, | | | and | | | subjec | | | t to | | | the | | | limita | | | tions | | | of | | | applic | | | able | | | Collec | | | tive | | | Polici | | | es. | | | 3. | | | You | | | should | | | | | | consul | | | t | | | direct | | | ly | | | with | | | the | | | organi | | | zation | | | that | | | provid | | | ed a | | | care | | | guidel | | | ine or | | | other | | | | | | clinic | | | al | | | histor | | | y with | | | any | | | questi | | | ons | | | about | | | additi | | | onal | | | inform | | | ation | | | or | | | accura | | | cy or | | | comple | | | teness | | | of | | | inform | | | ation | | | provid | | | ed.? | | | 2020 | | | Collec | | | tive | | | Medica | | | l | | | Techn[employer] | | | logies | | | , Inc[employer] | | | - | | | [email or web address] | | | llecti | | | vemedi | | | [email or web address] | | | m | +---+--------+ + +--------+ + + + | ANE [...] | + +--------+ + + + | TISSUE REQUEST FOR | Routin | 10/09/2019 | | Results for this | | PATHOLOGY (NON-ORD) | e | 8:12 AM | | procedure are in the | | | | PST | | results section. | + +--------+ + + + | ROBOTIC ASSISTED XI | | 10/09/2019 | Endometrial | | | HYSTERECTOMY | | 7:22 AM | hyperplasia with | | | | | PST | atypia | | + +--------+ + + + +---+--------+ | | | | | Specia | | | l | | | Needs | | | | +---+--------+ + +--------+ + + + | BASIC METABOLIC | Routin | 10/09/2019 | Endometrial | Results for this | | PANEL | e | 6:05 AM | hyperplasia with | procedure are in the | | | | PST | atypia | results section. | + +--------+ + + + | CBC NO DIFFERENTIAL | Routin | 10/09/2019 | Endometrial | Results for this | | | e | 6:05 AM | hyperplasia with | procedure are in the | | | | PST | atypia | results section. | + +--------+ + + + | POC GLUCOSE | Routin | 10/09/2019 | | Results for this | | | e | 5:59 AM | | procedure are in the [...] | | + +--------+ + + + from Last [address] Angiogram Pulmonary w Contrast (12/11/2019 10:20 PM PDT) + + | Specimen | + + | | + + + + + | Narrative | Performed At | + + + | CT ANGIOGRAM PULMONARY W CONTRAST 12/11/2019 10:19 PM HISTORY: | [facility] | | Shortness of breath chest pain radiating to back and pleuritic. | | | COMPARISON: Chest x-ray 12/11/2019. PROTOCOL: Thin section axial | | | images of the chest were obtained after uneventful administration of | | | 65 mL Omnipaque 350. Coronal and sagittal reformations were acquired. | | | FINDINGS: Neck base is normal. The heart is of normal size. | | | Mild coronary calcium is seen. There is mild atherosclerosis of the | | | aorta extending into the branches. The pulmonary arteries are | | | unremarkable. SVC is normal. No enlarged lymph nodes are seen in | | | the mediastinum, hao, or axillae. Trachea and esophagus demonstrate | | | no acute findings. Minimal dependent atelectasis are visualized of | | | the bilateral lungs. There is mild scattered pleural thickening of | | | the bilateral hemithoraces with mild calcium in the posterior, | | | inferior right side that could relate to previous asbestos exposure. | | | There is a partially imaged low-attenuation structure in the right | | | hepatic lobe measuring at least 10 mm that could represent a cyst | | | versus hemangioma. Chest wall structures are normal. There is mild | | | spondylosis. IMPRESSION- Study negative for pulmonary embolism | | | or other acute process in the chest. Mild scattered pleural | | | thickening of the bilateral hemithoraces with mild calcium in the | | | posterior, inferior right side that could relate to previous asbestos | | | exposure. A preliminary report was sent by [email or web address] with no | | | significant discrepancy on 12/11/2019 10:34 PM. Dictated and | | | Signed by: Roger Alas MD Electronically signed: 12/12/2019 8:42 | | | AM | | + + + + + | Procedure Note | + + | Kenny Ramirez Results In - 12/12/2019 8:[address] ANGIOGRAM PULMONARY W CONTRAST | | 12/11/2019 10:19 PMHISTORY: Shortness of breathchest pain radiating to back and | | pleuritic.COMPARISON: Chest x-ray 12/11/2019.PROTOCOL: Thin section axial images of the | | chest were obtained after uneventfuladministration of 65 mL Omnipaque 350. Coronal and | | sagittal reformations wereacquired.FINDINGS:Neck base is normal.The heart is of normal | | size. Mild coronary calcium is seen. There is mildatherosclerosis of the aorta extending | | into the branches. The pulmonary arteriesare unremarkable. SVC is normal.No enlarged | | lymph nodes are seen in the mediastinum, hao, or axillae. Tracheaand esophagus | | demonstrate no acute findings.Minimal dependent atelectasis are visualized of the | | bilateral lungs. There ismild scattered pleural thickening of the bilateral hemithoraces | | with mildcalcium in the posterior, inferior right side that could relate to | | previousasbestos exposure.There is a partially imaged low-attenuation structure in the | | right hepatic lobemeasuring at least 10 mm that could represent a cyst versus | | hemangioma.Chest wall structures are normal. There is mild spondylosis.IMPRESSION- Study | | negative for pulmonary embolism or other acute process in the chest.Mild scattered | | pleural thickening of the bilateral hemithoraces with mildcalcium in the posterior, | | inferior right side that could relate to previousasbestos exposure.A preliminary report | | was sent by [email or web address] with no significant discrepancyon 12/11/2019 10:34 | | PM.Dictated and Signed by: Roger Alas MD Electronically signed: 12/12/2019 8:42 AM | |and esophagus demonstrate no acute findings. | | | |Minimal dependent atelectasis are visualized of the bilateral lungs. There is | |mild scattered pleural thickening of the bilateral hemithoraces with mild | |calcium in the posterior, inferior right side that could relate to previous | |asbestos exposure. | | | |There is a partially imaged low-attenuation structure in the right hepatic lobe | |measuring at least 10 mm that could represent a cyst versus hemangioma. | | | |Chest wall structures are normal. There is mild spondylosis. | | | |IMPRESSION- | |Study negative for pulmonary embolism or other acute process in the chest. | | | |Mild scattered pleural thickening of the bilateral hemithoraces with mild | |calcium in the posterior, inferior right side that could relate to previous | |asbestos exposure. | | | |A preliminary report was sent by [email or web address] with no significant discrepancy | |on 12/11/2019 10:34 PM. | | | |Dictated and Signed by: Roger Alas MD | | Electronically signed: 12/12/2019 8:42 AM | + + + +---------+ + + | Performing | Address | City/State/Zipcode | Phone Number | | Organization | | | | + +---------+ + + | [facility] | | | | + +---------+ + + Troponin I (12/11/2019 10:04 PM PDT) + + + + + + | Component | Value | Ref Range | Performed | Pathologist | | | | | At | Signature | + + + + + + | Troponin I | <0.01Comment: | <0.06 ng/mL | [facility] | | | | Comment:Reference | | [facility] | | | | Ranges: 0.00-0.06 = | | MEDICAL | | | | NORMAL >0.06 = | | CENTER - | | | | SUSPICIOUS FOR | | LABORATORY | | | | MYOCARDIAL DAMAGE NOTE: | | | | | | Values greater than | | | | | | 0.78 ng/mL have been | | | | | | shown to be strongly | | | | | | associated with acute | | | | | | myocardial infarction. | | | | | | The [employer] | | | | | | Cardiology (ACC) | | | | | | recommends a decision | | | | | | limit of 0.06 ng/mL for | | | | | | this assay. Results | | | | | | greater than 0.06 can | | | | | | reflect a pre-infarct | | | | | | acute coronary syndrome, | | | | | | but can also reflect | | | | | | myocardial necrosis or | | | | | | injury that is not due | | | | | | to coronary artery | | | | | | disease. Some of these | | | | | | causes are sepsis, | | | | | | hypocolemia, atrial | | | | | | fibrillation, heart | | | | | | failure, pulmonary | | | | | | embolism, myocarditis, | | | | | | myocardial contusion, | | | | | | and renal failure. The | | | | | | diagnosis of myocardial | | | | | | infarction should be | | | | | | based on a combination | | | | | | of the patient's | | | | | | clinical presentation | | | | | | and the clinical | | | | | | laboratory test results | | | | | | (especially serial | | | | | | troponin levels). | | | | + + + + + + + + | Specimen | + + | Blood | + + + + + + + | Performing | Address | City/State/Zipcode | Phone Number | | Organization | | | | + + + + + | [facility] | [address] | [place], [place] | [phone] | | [facility] | | [address] | | | - LABORATORY | | | | + + + + + XR Chest PA or AP (12/11/2019 9:10 PM PDT) + + | Specimen | + + | | + + + + + | Impressions | Performed At | + + + | Asymmetric reticular opacities at the left lower lung may | [facility] | | represent scar/atelectasis versus early infectious process. | | | Dictated and Signed by: Wu Heredia MD Electronically signed: | | | 12/11/2019 9:29 PM | | + + + + + + | Narrative | Performed At | + + + | CLINICAL INFORMATION: back pain. COMPARISON: None available. | [facility] | | FINDINGS: Frontal and lateral views of the chest. Lungs: | | | Asymmetric mild reticulation at the left lower lung. No pleural | | | effusion or pneumothorax. Small calcified nodule (granuloma) at the | | | inferior right lateral lung Heart/mediastinum: Cardiac silhouette | | | is of normal size. Central pulmonary vasculature has a normal | | | appearance. Bones: No acute osseous abnormality appreciated. | | + + + + + | Procedure Note | + + | James, Rad Results In - 12/11/2019 9:32 PM PDT CLINICAL INFORMATION: back pain. | | | | COMPARISON: None available. | | | | FINDINGS: | | Frontal and lateral views of the chest. | | | | Lungs: Asymmetric mild reticulation at the left lower lung. No pleural effusion | | or pneumothorax. Small calcified nodule (granuloma) at the inferior right | | lateral lung | | | | Heart/mediastinum: Cardiac silhouette is of normal size. Central pulmonary | | vasculature has a normal appearance. | | | | Bones: No acute osseous abnormality appreciated. | | | | IMPRESSION: | | | | Asymmetric reticular opacities at the left lower lung may represent | | scar/atelectasis versus early infectious process. | | | | Dictated and Signed by: Wu Heredia MD | | Electronically signed: 12/11/2019 9:29 PM | + + + +---------+ + + | Performing | Address | City/State/Zipcode | Phone Number | | Organization | | | | + +---------+ + + | [facility] | | | | + +---------+ + + CBC with Differential (12/11/2019 9:00 PM PDT) + + + + + + | Component | Value | Ref Range | Performed | Pathologist | | | | | At | Signature | + + + + + + | WBC | 14.2 (H) | 4.0 - 11.0 K/uL | [facility] | | | | | | [facility] | | | | | | [facility] | | | | | | [facility] - | | | | | | LABORATORY | | + + + + + + | RBC | 4.83 | 3.70 - 5.20 | [facility] | | | | | M/uL | [facility] | | | | | | [facility] | | | | | | CENTER - | | | | | | LABORATORY | | + + + + + + | Hemoglobin | 14.5 | 11.5 - 16.0 | [facility] | | | | | g/dL | [facility] | | | | | | MEDICAL | | | | | | CENTER - | | | | | | LABORATORY | | + + + + + + | Hematocrit | 44.4 | 34.0 - 47.0 % | [facility] | | | | | | [facility] | | | | | | [facility] | | | | | | C[facility] - | | | | | | LABORATORY | | + + + + + + | MCV | 91.9 | 83.0 - 101.0 fL | [facility] | | | | | | [facility] | | | | | | [facility] | | | | | | C[facility] - | | | | | | LABORATORY | | + + + + + + | MCH | 30.0 | 28.0 - 35.0 pg | [facility] | | | | | | [facility] | | | | | | [facility] | | | | | | C[facility] - | | | | | | LABORATORY | | + + + + + + | MCHC | 32.7 | 32.0 - 36.0 | [facility] | | | | | g/dL | [facility] | | | | | | MEDICAL | | | | | | CENTER - | | | | | | LABORATORY | | + + + + + + | RDW-CV | 13.7 | <15.0 % | [facility] | | | | | | [facility] | | | | | | [facility] | | | | | | CENTER - | | | | | | LABORATORY | | + + + + + + | RDW-SD | 46.6 (H) | 35.1 - 46.3 fL | [facility] | | | | | | [facility] | | | | | | [facility] | | | | | | CENTER - | | | | | | LABORATORY | | + + + + + + | Platelet | 306 | 140 - 440 K/uL | [facility] | | | Count | | | [facility] | | | | | | MEDICAL | | | | | | CENTER - | | | | | | LABORATORY | | + + + + + + | MPV | 10.4 | 6.5 - 12.4 fL | [facility] | | | | | | [facility] | | | | | | [facility]ICAL | | | | | | CENTER - | | | | | | LABORATORY | | + + + + + + | % | 81.3 | 45.0 - 82.0 % | [facility] | | | Neutrophils | | | [facility] | | | | | | MEDICAL | | | | | | CENTER - | | | | | | LABORATORY | | + + + + + + | % | 7.1 (L) | 20.0 - 45.0 % | [facility] | | | Lymphocytes | | | [facility] | | | | | | MEDICAL | | | | | | CENTER - | | | | | | LABORATORY | | + + + + + + | % Monocytes | 10.3 | 4.0 - 12.0 % | [facility] | | | | | | [facility] | | | | | | MEDICAL | | | | | | CENTER - | | | | | | LABORATORY | | + + + + + + | % | 0.3 | 0.0 - 5.0 % | [facility] | | | Eosinophils | | | [facility] | | | | | | MEDICAL | | | | | | CENTER - | | | | | | LABORATORY | | + + + + + + | % Basophils | 0.6 | 0.0 - 1.0 % | [facility] | | | | | | [facility] | | | | | | MEDICAL | | | | | | CENTER - | | | | | | LABORATORY | | + + + + + + | % Immature | 0.4 | 0.0 - 0.4 % | [facility] | | | Granulocyte | | | [facility] | | | s | | | MEDICAL | | | | | | CENTER - | | | | | | LABORATORY | | + + + + + + | Absolute | 11.59 (H) | 1.80 - 8.50 | [facility] | | | Neutrophils | | K/uL | [facility] | | | | | | MEDICAL | | | | | | CENTER - | | | | | | LABORATORY | | + + + + + + | Absolute | 1.01 | 0.60 - 3.20 | [facility] | | | Lymphocytes | | K/uL | [facility] | | | | | | MEDICAL | | | | | | CENTER - | | | | | | LABORATORY | | + + + + + + | Absolute | 1.46 (H) | 0.00 - 1.00 | [facility] | | | Monocytes | | K/uL | [facility] | | | | | | MEDICAL | | | | | | CENTER - | | | | | | LABORATORY | | + + + + + + | Absolute | 0.04 | 0.00 - 0.40 | [facility] | | | Eosinophils | | K/uL | [facility] | | | | | | MEDICAL | | | | | | CENTER - | | | | | | LABORATORY | | + + + + + + | Absolute | 0.09 | 0.00 - 0.10 | [facility] | | | Basophils | | K/uL | [facility] | | | | | | MEDICAL | | | | | | CENTER - | | | | | | LABORATORY | | + + + + + + | Absolute | 0.05 (H) | 0.00 - 0.03 | [facility] | | | Immature | | K/uL | [facility] | | | Granulocyte | | | MEDICAL | | | s | | | CENTER - | | | | | | LABORATORY | | + + + + + + | % nRBC | 0 | 0 - 2 per 100 | [facility] | | | | | WBCs | [facility] | | | | | | MEDICAL | | | | | | CENTER - | | | | | | LABORATORY | | + + + + + + | Absolute | 0.00 | 0.00 - 0.01 | [facility] | | | nRBC | | K/uL | [facility] | | | | | | MEDICAL | | | | | | CENTER - | | | | | | LABORATORY | | + + + + + + + + | Specimen | + + | Blood | + + + + + + + | Performing | Address | City/State/Zipcode | Phone Number | | Organization | | | | + + + + + | [facility] | [address] | [place] | [phone] | | [facility] | | [address] | | | - LABORATORY | | | | + + + + + Comprehensive Metabolic Panel (12/11/2019 9:00 PM PDT) + + + + + + | Component | Value | Ref Range | Performed | Pathologist | | | | | At | Signature | + + + + + + | Na | 139 | 136 - 145 | [facility] | | | | | mmol/L | [facility] | | | | | | [facility] | | | | | | CENTER - | | | | | | LABORATORY | | + + + + + + | K | 4.1 | 3.4 - 5.1 | [facility] | | | | | mmol/L | [facility] | | | | | | MEDICAL | | | | | | CENTER - | | | | | | LABORATORY | | + + + + + + | Cl | 105 | 98 - 107 mmol/L | [facility] | | | | | | [facility] | | | | | | MEDICAL | | | | | | CENTER - | | | | | | LABORATORY | | + + + + + + | CO2 | 27 | 20 - 31 mmol/L | [facility] | | | | | | [facility] | | | | | | MEDICAL | | | | | | CENTER - | | | | | | LABORATORY | | + + + + + + | Anion Gap | 7 | 3 - 16 mmol/L | [facility] | | | | | | [facility] | | | | | | MEDICAL | | | | | | CENTER - | | | | | | LABORATORY | | + + + + + + | Glucose | 132 (H) | 60 - 106 mg/dL | [facility] | | | | | | [facility] | | | | | | MEDICAL | | | | | | CENTER - | | | | | | LABORATORY | | + + + + + + | BUN | 14 | 9 - 23 mg/dL | [facility] | | | | | | [facility] | | | | | | MEDICAL | | | | | | CENTER - | | | | | | LABORATORY | | + + + + + + | Creatinine | 0.74 | 0.55 - 1.02 | [facility] | | | | | mg/dL | [facility] | | | | | | MEDICAL | | | | | | CENTER - | | | | | | LABORATORY | | + + + + + + | eGFR if not | >60Comment: GLOMERULAR | >=60 | [facility] | | | | FILTRATION | mL/min/1.73m2 | [facility] | | | CAMBODIAN | RATE,ESTIMATED | | MEDICAL | | | | mL/min/1.51y5Noig than | | CENTER - | | | | 60 Chronic kidney | | LABORATORY | | | | disease,if found over a | | | | | | 3-month period.Less than | | | | | | 15 Kidney failureFor | | | | | | | | | | | | Americans,multiply the | | | | | | calculated GFR by 1.21. | | | | | | | | | | + + + + + + | Calcium | 9.6 | 8.7 - 10.4 | [facility] | | | | | mg/dL | [facility] | | | | | | MEDICAL | | | | | | CENTER - | | | | | | LABORATORY | | + + + + + + | Albumin | 4.3 | 3.2 - 4.8 g/dL | [facility] | | | | | | [facility] | | | | | | MEDICAL | | | | | | CENTER - | | | | | | LABORATORY | | + + + + + + | Bilirubin | 0.5 | 0.3 - 1.2 mg/dL | [facility] | | | Total | | | [facility] | | | | | | MEDICAL | | | | | | CENTER - | | | | | | LABORATORY | | + + + + + + | Total | 6.9 | 5.7 - 8.2 g/dL | [facility] | | | Protein | | | [facility] | | | | | | MEDICAL | | | | | | CENTER - | | | | | | LABORATORY | | + + + + + + | AST | 69 (H) | 0 - 34 U/L | [facility] | | | | | | [facility] | | | | | | MEDICAL | | | | | | CENTER - | | | | | | LABORATORY | | + + + + + + | ALT | 86 (H) | 10 - 49 U/L | [facility] | | | | | | [facility] | | | | | | MEDICAL | | | | | | CENTER - | | | | | | LABORATORY | | + + + + + + | Alkaline | 63 | 46 - 116 U/L | [facility] | | | Phosphatase | | | [facility] | | | | | | MEDICAL | | | | | | CENTER - | | | | | | LABORATORY | | + + + + + + | Globulin | 2.6 | 2.1 - 3.8 g/dL | [facility] | | | | | | [facility] | | | | | | MED[facility] | | | | | | CENTER - | | | | | | LABORATORY | | + + + + + + | Albumin/Marycruz | 1.7 | 0.8 - 1.9 | [facility] | | | bulin Ratio | | | [facility] | | | | | | MEDICAL | | | | | | CENTER - | | | | | | LABORATORY | | + + + + + + | BUN/Creatin | 18.9 | | [facility] | | | ine Ratio | | | [facility] | | | | | | MEDICAL | | | | | | CENTER - | | | | | | LABORATORY | | + + + + + + + + | Specimen | + + | Blood | + + + + + + + | Performing | Address | City/State/Zipcode | Phone Number | | Organization | | | | + + + + + | [facility] | [address] | [place] | [phone] | | [facility] | | [address] | | | - LABORATORY | | | | + + + + + ECG 12 lead (12/11/2019 6:51 PM PDT)Only the most recent of 2 results within the time zina od is included. + + + + + + | Component | Value | Ref Range | Performed | Pathologist | | | | | At | Signature | + + + + + + | VENTRICULAR | 71 | BPM | [facility] | | | RATE EKG | | | | | + + + + + + | ATRIAL RATE | 71 | BPM | [facility] | | + + + + + + | P-R | 160 | ms | [facility] | | | INTERVAL | | | | | + + + + + + | QRS | 66 | ms | [facility] | | | DURATION | | | | | + + + + + + | Q-T | 374 | ms | [facility] | | | INTERVAL | | | | | + + + + + + | Q-T | 406 | ms | [facility] | | | INTERVAL | | | | | | (CORRECTED) | | | | | + + + + + + | P WAVE AXIS | 78 | degrees | [facility] | | + + + + + + | QRS AXIS | -6 | degrees | [facility] | | + + + + + + | T AXIS | -21 | degrees | [facility] | | + + + + + + | INTERPRETAT | Normal sinus | | [facility] | | | ION TEXT | rhythmMinimal voltage | | | | | | criteria for LVH, may be | | | | | | normal | | | | | | variantNonspecific T | | | | | | wave abnormality | | | | | | Inferior leadsAbnormal | | | | | | ECGWhen compared with | | | | | | ECG of 21-SEP-2019 | | | | | | 10:13,T wave amplitude | | | | | | has increased in Lateral | | | | | | leadsConfirmed by | | | | | | KEYSHAWN ROSS MD ([id number]) | | | | | | on 12/12/2019 6:42:40 AM | | | | + + [...] | | | + +---------+ + + PIV (10/09/2019 8:17 AM PST) + + [...] Yu Charles CRNA Student Authorizing provider: Paul Russo, | | | Please see intraoperative grid [...] medication documentation. | | + + + Tissue Request For Pathology (10/09/2019 8:12 AM PST) + + | Specimen | + + | | + + + + + | Narrative | Performed At | + + + | | [facility] | | [address] | [place] | | : 1940 AGE: 79 years SEX: | MEDICAL CENTER | | Female | LABORATORY | | Acct: [id number] | [place] | | Location: [facility]; [facility]; [facility] | | | Case #: [id number] | | | Ordering: MELLISA CASTILLO MD | | | Client: [facility] | | | Copy To: Printed: 10/10/2019 12:19 PST | | | SURGICAL PATHOLOGY | | | FINAL REPORTCollected: Received: | | | Responsible Pathologist:10/09/2019 | | | 08:12 PST 10/09/2019 09:14 PST | | | MICHAEL PAINTING DIAGNOSIS:A. Left pelvic sentinel lymph | | | node biopsy: | | | Benign adipose tissue. See comment.B. Hysterectomy with bilateral | | | salpingo-oophorectomy: | | | Mature and immature squamous metaplasia and focal Nabothian | | | cysts, cervix. | | | Benign, atrophic endometrium with focal retrogressive cystic | | | change. See comment. | | | Mild-moderate adenomyosis. | | | Intramural leiomyoma (0.4 cm). | | | Uterine serosa with no significant abnormality. | | | Oviducts (2) with no significant abnormality. | | | Atrophic ovaries (2) with no significant abnormality.C. Right | | | pelvic sentinel lymph node biopsy: | | | Benign adipose tissue. See comment.ARIC/JIGAR 10/10/19 11:54 | | | amVerified by: MICHAEL PAINTING MDVerify Date: 10/10/2019 12:19 | | | [facility] [id number]:All of the | | | endometrium has been submitted and examined microscopically. No | | | residual complex endometrial hyperplasia is encountered | | | ([id number]).All of the left (A1) and right (C1) pelvic sentinel lymph | | | node tissue has been submitted and examined microscopically. Only | | | benign adipose tissue is present with no lymph nodes included in the | | | specimens.GROSS DESCRIPTION:This case is received in three | | | parts.Specimen A labeled and designated "[place], left pelvic | | | sentinel lymph node" is received in formalin and consists of an | | | unoriented, elongated portion of yellow, lobulated adipose tissue | | | measuring 2.9 x 1.5 x 0.5 cm. The specimen is palpated to reveal | | | possible lymphoid tissue but no distinct lymphoid candidate. All in | | | "A1". SURGICAL | | | PATHOLOGY FINAL REPORTCollected: | | | Received: Responsible | | | Pathologist:10/09/2019 08:12 PST 10/09/2019 09:14 | | | PST MICHAEL PAINTING DESCRIPTION:Specimen | | | B labeled and designated "[place], uterus, cervix and bilateral | | | fallopian tubes and ovaries" is received in formalin and consists of | | | an intact uterus with attached cervix and bilateral adnexa. The | | | uterus measures 9.5 cm fundus-cervix x 4.5 cm left-right x 3.1 cm | | | anterior-posterior and weighs 101 g. The serosa is manuel-pale pink, | | | focally hemorrhagic and glistening. The ectocervix measures 3.1 x | | | 2.5 cm and is remarkable for a slit-like os measuring 0.6 cm in | | | greatest length. No discrete masses or lesions are identified on the | | | ectocervix. The uterus is opened to reveal a manuel-pale pink, faint | | | herringbone patterned and glistening endocervical canal measuring 2.5 | | | cm in length x 1.5 cm in diameter. No discrete masses or lesions are | | | identified grossly. The endometrial cavity measures 4.5 cm in | | | length x 3.2 cm cornu-cornu and is lined with a manuel-pale pink, smooth | | | and glistening endometrium with an average thickness of 0.1 cm. | | | Discrete masses or lesions are not identified grossly. The uterus | | | is serially sectioned to reveal a manuel-pale pink, moderately | | | trabeculated and glistening myometrium with a maximum thickness of 2.6 | | | cm. Also present is one bulging intramural myomatous nodule | | | measuring up to 0.4 cm in greatest dimension. No discrete necrosis | | | or cystic degeneration is identified grossly.The left fimbriated | | | fallopian tube measures 6.4 cm in length x 0.4 cm in diameter. | | | Serial sectioning reveals a manuel-pale pink tubular structure with a | | | pinpoint lumen. The intact, manuel-pale pink ovary measures 1.1 x 0.8 x | | | 0.4 cm and weighs 1 g. It is bisected to reveal a manuel-pale pink, | | | focally hemorrhagic and glistening cut surface with possible corpora | | | albicantia identified grossly.The right fimbriated fallopian tube | | | measures 6.6 cm in length x 0.4 cm in diameter. Serial sectioning | | | reveals a manuel-pale pink tubular structure with a pinpoint lumen. The | | | intact, manuel-pale pink right ovary measures 1.5 x 0.8 x 0.3 cm and | | | weighs 1 g. It is bisected to reveal a manuel-pale pink, focally | | | hemorrhagic and glistening cut surface with possible corpora | | | albicantia identified grossly.[employer] Player sections are submitted as | | | follows: "B1" - anterior and posterior cervix; "B2" - intact | | | anterior lower uterine segment; "B3" - intact posterior lower uterine | | | segment; "B4-B8" - entire anterior endomyometrium submitted from | | | inferior to superior with two full-thickness sections including | | | portion of intramural myomatous nodule; "B9-B14" - entire posterior | | | endomyometrium submitted from inferior to superior including two | | | full-thickness sections; "B15" - left fallopian tube fimbriae, | | | cross-section, and portion of left ovary; "B16" - right fallopian tube | | | fimbriae, cross-section, and portion of right ovary.Specimen C | | | labeled and designated "[place], right pelvic sentinel node" is | | | received in formalin and consists of an unoriented, elongated portion | | | of yellow, lobulated adipose tissue measuring 2.5 x 1.1 x 0.3 cm. | | | The specimen is palpated to reveal possible lymphoid tissue but no | | | distinct lymph node candidate. All in "C1".[id number] | | | DESCRIPTION:Histologic sections of all submitted blocks are examined | | | by light microscopy. Thesefindings, together with the gross | | | examination, support the pathologic diagnosis. | | + + + + + + + + | Performing | Address | City/State/Zipcode | Phone Number | | Organization | | | | + + + + + | [facility] | [address] | [place] [address] | | | [facility] | | | | | LABORATORY [facility] | | | | + + + + + CBC no Differential (10/09/2019 6:05 AM PST) + + + +-------- -----+ + | Component | Value | Ref Range | Perform ed | Pathologist | | | | | At | Signature | + + + +-------- -----+ + | WBC | 6.63 | 3.80 - 11.00 | [facility] | | | | | K/uL | [facility] | [facility] | | [facility] | | | | | | [facility]ICAL | | | | | | [facility] | | | | | | LABORAT ORY | | | | | | [facility] | | + + + +-------- -----+ + | RBC | 4.63 | 3.70 - 5.10 | [facility] | | | | | M/uL | [facility] | | | | | [facility] | | | | | | MEDICAL | | | | | | CENTER | | | | | | LABORAT ORY | | | | | | [facility] | | + + + +-------- -----+ + | Hemoglobin | 14.2 | 11.3 - 15.5 | [facility] | | | | | g/dL | [facility] | | | | | [facility] | | | | | | MEDICAL | | | | | | CENTER | | | | | | LABORAT ORY | | | | | | [facility] | | + + + +-------- -----+ + | Hct | 44.1 | 34.0 - 46.0 % | [facility] | | | | | | [facility] | | | | | [facility] | | | | | | MEDICAL | | | | | | CENTER | | | | | | LABORAT ORY | | | | | | [facility] | | + + + +-------- -----+ + | MCV | 95.2 | 80.0 - 100.0 fL | [facility] | | | | | | [facility] | | | | | | [facility] | | | | | | MEDICAL | | | | | | CENTER | | | | | | LABORAT ORY | | | | | | [facility] | | + + + +-------- -----+ + | MCH | 30.7 | 27.0 - 34.0 pg | [facility] | | | | | | [facility] | | | | | [facility] | | | | | | MEDICAL | | | | | | CENTER | | | | | | LABORAT ORY | | | | | | [facility] | | + + + +-------- -----+ + | MCHC | 32.2 | 32.0 - 35.5 | [facility] | | | | | g/dL | [facility] | | | | | [facility] | | | | | | MEDICAL | | | | | | CENTER | | | | | | LABORAT ORY | | | | | | [facility] | | + + + +-------- -----+ + | RDW-CV | 14.4 | 11.0 - 15.5 % | [facility] | | | | | | [facility] | | | | | | [facility] | | | | | | MEDICAL | | | | | | CENTER | | | | | | LABORAT ORY | | | | | | [facility] | | + + + +-------- -----+ + | Platelet | 332 | 150 - 400 K/uL | [facility] | | | Count | | | [facility] | | | | | [facility] | | | | | | MEDICAL | | | | | | CENTER | | | | | | LABORAT ORY | | | | | | [facility] | | + + + +-------- -----+ + | MPV | 11.2Comment: Performed | 9.3 - 12.7 fL | [facility] | | | | by [facility] [address], | | [facility] | | | | [place] [address] | | HEART | | | |Performed by [facility] [address], [place] [address] | | MEDICAL | | | | | | CENTER | | | | | | LABORAT ORY | | | | | | [facility] | | + + + +-------- -----+ + + + | Specimen | + + | Blood specimen | | (specimen) | + + + + + + + | Performing | Address | City/State/Zipcode | Phone Number | | Organization | | | | + + + + + | [facility] | [address] | [place] [address] | | | [facility] | | | | | LABORATORY [facility] | | | | + + + + + Basic Metabolic Panel (10/09/2019 6:05 AM PST) + + + + + + | Component | Value | Ref Range | Performed | Pathologist | | | | | At | Signature | + + + + + + | Na | 146 (H) | 135 - 145 | [facility] | | | | | mmol/L | [facility] | | | | | [facility] | | | | | | MEDICAL | | | | | | CENTER | | | | | | LABORATORY | | | | | | [facility] | | + + + + + + | K | 3.7 | 3.5 - 5.0 | [facility] | | | | | mmol/L | [facility] | | | | | | [facility] | | | | | | MEDICAL | | | | | | CENTER | | | | | | LABORATORY | | | | | | [facility] | | + + + + + + | Cl | 106 | 99 - 109 mmol/L | [facility] | | | | | | [facility] | | | | | | [facility] | | | | | | MEDICAL | | | | | | CENTER | | | | | | LABORATORY | | | | | | [facility] | | + + + + + + | CO2 | 30 (H) | 21 - 28 mmol/L | [facility] | | | | | | [facility] | | | | | [facility] | | | | | | MEDICAL | | | | | | CENTER | | | | | | LABORATORY | | | | | | [facility] | | + + + + + + | Anion Gap | 10 | 5 - 16 mmol/L | [facility] | | | | | | [facility] | | | | | | [facility] | | | | | | MEDICAL | | | | | | CENTER | | | | | | LABORATORY | | | | | | [facility] | | + + + + + + | Calcium | 10.0 | 8.5 - 10.2 | [facility] | | | | | mg/dL | [facility] | | | | | | [facility] | | | | | | MEDICAL | | | | | | CENTER | | | | | | LABORATORY | | | | | | [facility] | | + + + + + + | BUN | 13 | 8 - 25 mg/dL | [facility] | | | | | | [facility] | | | | | | [facility] | | | | | | MEDICAL | | | | | | CENTER | | | | | | LABORATORY | | | | | | [facility] | | + + + + + + | Creatinine | 0.73 | 0.50 - 1.00 | [facility] | | | | | mg/dL | [facility] | | | | | | [facility] | | | | | | MEDICAL | | | | | | CENTER | | | | | | LABORATORY | | | | | | [facility] | | + + + + + + | Glucose | 109 (H) | 65 - 99 mg/dL | [facility] | | | | | | [facility] | | | | | | [facility] | | | | | | MEDICAL | | | | | | CENTER | | | | | | LABORATORY | | | | | | [facility] | | + + + + + + | Estimated | 79 (L)Comment: eGFR<60 | >=90 | [facility] | | | GFR | consistent with impaired | mL/min/1.73m2 | [facility] | | | | kidney function.For | | HEART | | | | Americans, | | MEDICAL | | | | multiply the calculated | | CENTER | | | | GFR by 1.210Performed by | | LABORATORY | | | | [facility] [address], | | [facility] | | | | [place] [address] | | | | + + + + + + + + | Specimen | + + | Blood specimen | | (specimen) | + + + + + + + | Performing | Address | City/State/Zipcode | Phone Number | | Organization | | | | + + + + + | [facility] | [address] | [place] [address] | | | [facility] | | | | | [place] | | | | + + + + + POC Glucose (10/09/2019 5:59 AM PST) + + + + + + | Component | Value | Ref Range | Performed | Pathologist | | | | | At | Signature | + + + + + + | Glucose, | 112 (H)Comment: | 65 - 99 mg/dL | [facility] | | | POC | Performed by [facility] [address] | | [facility] | | | | [address] [place] | | HEART | | | | [id number] | | MEDICAL | | | | | | CENTER | | | | | | LABORATORY | | | | | | [place] | | + + + + + + + + | Specimen | + + | Blood specimen | | (specimen) | + + + + + + + | Performing | Address | City/State/Zipcode | Phone Number | | Organization | | | | + + + + + | [facility] | [address] | [place] [address] | | | [facility] | | | | | [place] | | | | + + + + + from Last 3 Months Insurance + +--------+ +--------+ +---------+--------+ | Payer | Benefi | Subscriber | Effect | Phone | Address | Type | | | t Plan | ID | yajaira | | | | | | / | | Dates | | | | | | Group | | | | | | + +--------+ +--------+ +---------+--------+ | MEDICARE | MEDICA | [id number] | 02/14/20 | [phone] | | Medica | | | RE | | 05-Pre | 5 | | re | | | PART A | | sent | | | | | | AND B | | | | | | + +--------+ +--------+ +---------+--------+ | [employer] | [employer] | [id number] | 08/16/19 | | | PPO | | | PPO | | 18-Pre | | | | | | | | sent | | | | + +--------+ +--------+ +---------+--------+ + +--------+ +--------+ + + | Guarantor Name | Accoun | Relation to | Date | Phone | Billing Address | | | t Type | Patient | of | | | | | | | | | | + +--------+ +--------+ + + | Poppy Mendieta | Person | Self [birth year] | [id number] | | Sara | al/Brain | | 1940 | [phone] | [place] [address] | | | martina | | | 8 (Home) | | + +--------+ +--------+ + + Advance Directives + + + + + | Type | Date Recorded | Patient | Explanation | | | | Public Relations 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
--- OUTSIDE RECORDS SUMMARY | ~2019-12-14 | XMS | Encounter Summary ---
Demographics + + + | Address | [address] | | | [place] [address] | + + + | Home Phone | | + + + | Preferred Language | Unknown | + + + | Marital Status | | + + + | Evangelical Affiliation | 1077 | + + + | Race | Unknown | + + + | Ethnic Group | Unknown | + + + Author + + + | Author | [facility] | | | and [place] | + + + | Organization | [facility] | | | [...] Team Providers + +------+ + | Care Anthropologist Name | Role | Phone | + +------+ + PCP | Unavailable | + +------+ + Encounter Details +--------+ + + + + | Date | Type | Department | Care Team | Description | +--------+ + + + + | 10/27/ | [facility] | [facility] | | | | 1997 | Encounter | MED [facility] EM[facility]GENCY | | | | | | CENTER [address] | | | | | | [place] | | | | | | [address] | | | | | | [phone] | | | +--------+ + + + + Social History + +-------+ +--------+------+ | Tobacco Use | Types | Packs/Day | Years | Date | | | | | Used | | + +-------+ +--------+------+ | Never Assessed | | | | | + +-------+ +--------+------+ + + + | Sex Assigned at [...] 2019 | Visit | | [address] | | | | | | [place] | | | | | | [address] | | | | | | | | +--------+---------+ + + + documented as of this encounter Visit Diagnoses Not on filedocumented in this encounter"
--- OUTSIDE RECORDS SUMMARY | ~2019-12-14 | XMS | Encounter Summary ---
Demographics + + + | Address | [address] | | | [place] [address] | + + + | Home Phone | | + + + | Preferred Language | Unknown | + + + | Marital Status | | + + + | Bahai Affiliation | 1077 | + + + | Race | Unknown | + + + | Ethnic Group | Unknown | + + + Author + + + | Author | [facility] | | | and [place] | + + + | Organization | [facility] | | | [...] Team Providers + +------+ + | Care Tele Marketing Executive Name | Role | Phone | + +------+ + | Karen Alvarado MD | PCP | | + +------+ + Reason for Referral Evaluate & Treat (Routine) +--------+ + + + + + | Status | Reason | Specialty | Diagnoses / | Referred By | Referred To | | | | | Procedures | Contact | Contact | +--------+ + + + + + | Closed | Specialty | Sleep | Diagnoses | López, | [facility] | | | Services | Medicine | LEONARDO | Festus Traore | [place] [address] | | | Required | | (obstructive | MD [address] | | | | | sleep | [place] | [place], | | | | | apnea) | [place] | [place] [address] | | | | | Procedures | [place], MD | Phone: | | | | | [place] | [address] | [phone] | | | | | 6/>YRS SLEEP | Phone: | Fax: | | | | | W/CPAP 4/> | [phone] | [phone] | | | | | ADDL EDWIGE | Fax: | | | | | | ATTND | [phone] | | | | | | CPAP(DOS | | | | | | | scheduled | | | | | | | for 06/18/17) | | | +--------+ + + + + + Reason for Visit + + + | Reason | Comments | + + + | Sleep Study | | | (Follow-up) | | + + + Encounter Details +--------+---------+ + + + | Date | Type | Department | Care Team | Description | +--------+---------+ + + + | 06/14/ | Office | [facility] | Festus Dawn | LEONARDO (obstructive | | 2017 | Visit | SLEEP DISORDER [address] | [address] | sleep apnea) | | | | [address] [place] | [address] [place] | (Primary Dx) | | | | [place] [address] | [place] [address] | | | | | [phone] | [phone] | | | | | | | [...] | | | | (once a year) | + + +---------+ + + + [...] + + + | Blood Pressure | 142/68 | 06/14/2017 11:15 AM | | | | | PDT | | + + + + + | Pulse | 65 | 06/14/2017 11:15 AM | | | | | PDT | | + + + + + | Temperature | - | - | | + + + + + | Respiratory Rate | 14 | 06/14/2017 11:15 AM | | | | | PDT | | + + + + + | Oxygen Saturation | 95% | 06/14/2017 11:15 AM | | | | | PDT | | + + + + + | Inhaled Oxygen | - | - | | | Concentration | | | | + + + + + | Weight | 124.1 kg (273 lb 9.5 | 06/14/2017 11:15 AM | | | | oz) | PDT | | + + + + + | Height | - | - | | + + + + + | Body Mass Index | 46.96 | 05/04/2017 8:36 AM | | | | | PDT | | + + + + + documented in this encounter Progress Notes Festus Dawn Jr., MD - 06/14/2017 11:30 AM PDTThe patient comes in for follow-up after undergoing diagnostic polysomnography. My interpretation of the patient's sleep study, which I have reviewed with the patient, is as follows: Polysomnogram Report on Poppy Bah performed on June 06, 2017. Clinical Information: Poppy Bah is a 77 y.o. female who [facility] June [facility], [address] Gray Alvarado because of possible o bstructive sleep apnea. Technical Information: Please see technical data which is attached. The study was original ly scheduled as a split-night study. However the patient did not meet split night criteria (Apnea Hypopnea Index index of 20 or greater and oxygen desaturation of less than 80% during the first 2 hours of sleep). Thus diagnostic polysomnography was performed. Because of luis ulder pain the current study was done in her recliner which is the way the patient usually s leeps at home. Definitions (The AASM Manual for the Scoring of Sleep and Associated Events, Version 2.4; 2 017): Apnea: There is a drop in the peak signal excursion by 90% or greater of pre-micaela nt baseline using an oronasal thermal sensor (diagnostic study), PAP device flow (titration study), or an alternative apnea sensor (diagnostic study); the duration of the 90% or greate r drop in sensor signal is 10 seconds or longer. Obstructive Apnea: Event associated with continued or increased inspi ratory effort throughout the entire period of absent airflow. Central Apnea: Event associated with absent inspiratory effort throug hout the entire period of absent airflow. Mixed Apnea: Event associated with absent inspiratory effort in the i nitial portion of the event followed by resumption of inspiratory effort during the second p ortion of the event. Hypopnea: The peak signal excursions drop by greater than or equal to 30% of pre -event baseline using a recommended or alternative airflow sensor and the duration of the >= 30% drop in signal excursion is greater than or equal to 10 seconds and there is a greater than or equal to a 4% oxygen desaturation from pre-event baseline. Respiratory Event Related Arousal: A sequence of breaths lasting 10 seconds or l onger characterized by increasing respiratory effort or by flattening of the inspiratory por tion of the nasal pressure (diagnostic study) or PAP device flow (titration study) waveform leading to arousal from sleep when the sequence of breaths does not meet criteria for an fusing machine feeder ea or hypopnea. Sleep Architecture: Lights out was recorded at 2114 hundred hours on June 06, 2017 and lights on was recorded at 0729 hundred hours on June 07, 2017. The latency to sleep onset was normal at 5 minutes. The patient slept for 533.5 minutes out of 615 minutes of study ti me resulting an a sleep efficiency that was near normal at 86.7 %. The amount of N1 sleep wa s normal at 6.3 % of the Total Sleep Time; the amount of N2 sleep was normal at 62.2 % of t he Total Sleep Time; the amount of N3 sleep was normal at 6.7 % of the Total Sleep Time; the amount of REM sleep was normal at 24.7 % of the Total Sleep Time and the latency to REM sle ep normal at 86.5 minutes. Sleep in the following positions was recorded: Because of shoulder pain, the study was done with the patient sleeping in a recliner which is the way she typically sleeps at home Sleep was minimally fragmented; the Arousal Index was 15.9. The patient reported this to be better than a usual night's sleep. Cardiopulmonary Monitoring: The heart rate averaged in the low 60s beats per minute. Mild rate variability was noted. The rhythm was sinus. In the course of the evening there were 2 obstructive apneas, 0 mixed apneas, 0 central fusing machine feeder eas, 166 hypopneas, and 33 Respiratory Effort Related Arousals (RERA's). The Respiratory Dis turbance Index (RDI) was elevated at 22.6; the Apnea-Hypopnea Index elevated at 18.9; the Ap marian Index (AI) 0.2. The respiratory events were significantly sleep stage dependent. Events were much more frequently seen in Rapid Eye Movement sleep (REM related Apnea Hypopnea Inde x index 44.5, non-REM related Apnea Hypopnea Index 10.5). The respiratory events occasioned sleep fragmentation; the Respiratory Arousal Index was 9. The lorelei oxygen saturation was 60 % and the patient spent 196.7 minutes with an oxygen sat uration of less than 88%. ETCO2 was moderately elevated (50-55 mmHg for 147 minutes, 55-59 mmHg for 153 minutes, 60-6 4 mmHg for 18 minutes). Limb Movement Monitoring: There were 210 Periodic Limb Movements (PLMS Index of 23.6) of wh ich 13 were associated with arousals; the PLMS Arousal Index was normal at 1.5. Interpretation: This polysomnogram is abnormal secondary to: Obstructive sleep apnea is diagnosed. This is associated with significant oxygen desaturat ion. It is associated with sleep fragmentation. Although of significance in all positions it is more frequently observed in REM sleep. Periodic limb movements of sleep are present but they do not seem to significantly fragment sleep. Suggestions: 1. The principles of sleep hygiene should be reviewed with the patient. 2. Polysomnographically guided positive airway pressure titration is recommended. 3. A ferritin level should be checked. If the ferritin level is less than 75ug/ml, iron sup plementation should be considered to raise the ferritin to above 75ug/ml. This may help with PLMS. Once the ferritin level is above 75ug/ml, pharmacologic therapy of PLMS/RLS should be considered if they are felt to be clinically significant. BP 142/68 | Pulse 65 | Resp 14 | Wt 124.1 kg (273 lb 9.5 oz) | SpO2 95% | BMI 46.96 kg /m A: LEONARDO: The patient has clinically significant obstructive sleep apnea which is associated with very significant oxygen desaturation. I have discussed this with her. I am suggesting we bring her back into the sleep center for polysomnographically guided CPAP titration to a ssure control of obstructive apnea as well as oxygen desaturation. She is agreeable with is. P: PSG guided CPAP titration in the near future with f/u thereafter. Today, 15 minutes was spent face to face with the patient; the majority of time was spent c yesica regarding LEONARDO and its therapy. documented in is encounter Plan of Treatment +--------+---------+ + + + | Date | Type | Specialty | Care Team | Description | +--------+---------+ + + + | 07/15/ | Office | Sleep Medicine | Apollo Villa PA | | | 2019 | Visit | | [address] | | | | | | [place] | | | | | | [id number] | | | | | | | | +--------+---------+ + + + + + +--------+ + + | Name | Type | Priori | Associated Diagnoses | Order Schedule | | | | ty | | | + + +--------+ + + | * [facility] - | Outpatient | Routin | LEONARDO (obstructive | Ordered: 06/14/2017 | | AMB Referral | Referral | e | sleep apnea) | | + + +--------+ + + documented as of this encounter Visit Diagnoses + + | Diagnosis | + + | LEONARDO (obstructive sleep apnea) - Primary Obstructive sleep apnea (adult) (pediatric) | + + documented in this encounter"
--- OUTSIDE RECORDS SUMMARY | ~2019-12-14 | XMS | Encounter Summary ---
Demographics + + + | Address | [address] | | | [place] [address] | + + + | Home Phone | | + + + | Preferred Language | Unknown | + + + | Marital Status | | + + + | Scientologist Affiliation | 1077 | + + + | Race | Unknown | + + + | Ethnic Group | Unknown | + + + Author + + + | Author | [facility] | | | and [place] | + + + | Organization | [facility] | [...] Team Providers + +------+ + | Care Grant Manager Name | Role | Phone | + +------+ + | Karen Alvarado MD | PCP | | + +------+ + Reason for Visit + + + | Reason | Comments | + + + | Back Pain | | + + + Encounter Details +--------+ + + + + | Date | Type | Department | Care Team | Description | +--------+ + + + + | 12/10/ | Emergency | [facility] | Dieudonne Gore MD | Thoracic myofascial | | 2020 | | [facility] CTR EM[facility] | [address] | strain, initial | | | | CENTER [address] | [place] | encounter (Primary | | | | [place], [place] | [address] | Dx) | | | | [address] | | | | | | [phone] | | | +--------+ + + + [...] + + + documented in this encounter Discharge Instructions Instructions Dieudonne Gore MD - 12/11/2019Take the pain medication as needed. Pain medicat ion will make you drowsy and may make you nauseous. Increases the risk of falls. Make you constipated as well. Follow-up with your primary care provider. Return for any worsening s ymptoms. AttachmentsThe following attachments cannot be sent through Care Everywhere.Muscle Strain, Extremity (Kyrgyz)Strains and Sprains, Treating (Kyrgyz)Ondansetron oral dissolving tablet (Kyrgyz)Acetaminophen; Hydrocodone tablets or capsules (Kyrgyz)documented in this encount er Medications at Time of Discharge + + [...] | Apply topically | | 0 | 07/31/20 | | | (TEMOVATE) 0.05% | Daily [...] tablet by | 8 | 0 | 12/11/19 | | | HYDROcodone-acetamin | mouth every 8 hours | tablet | | 20 | | | ophen (NORCO) 5-325 | as needed for Pain | | | | | | mg per tablet | for up to 8 doses. | | | | | + + + +---------+ + + | | Take 1 tablet by | 30 | 0 | 10/09/19 | | | HYDROcodone-acetamin | mouth every [...] tablet by | 8 | 0 | 12/11/19 | | | (ZOFRAN ODT) 4 mg | mouth every 8 hours | tablet | | 20 | | | disintegrating | as needed for up to | | | | | | tablet | 8 doses. | | | | | + + + +---------+ + + | ondansetron | Take 1 tablet by | 12 | 0 | 10/09/19 | | | (ZOFRAN ODT) 8 mg [...] [place] | | | | | | [id number] | | | | | | | | +--------+---------+ + + + + +------+--------+ + + | Name | Type | Priori | Associated Diagnoses | Date/Time | | | | ty | | | + +------+--------+ + + | ED INFORMATION | VY | Routin | | 12/11/2019 6:46 PM | | EXCHANGE | | e | | PDT | + +------+--------+ + + documented as of this encounter [...] L?MRN: | | | | | | [id number] | | | [id number] | | | riteri | | | [...] | | | [id number] | | | [id number] | | | [id number] | | | [...] | | | ed.? | | | 2019 | | | [employer] | | | tive | | | Medica | | | l | | | Techno | | | logies | | | , Inc. | | | - | | | [email or web address] | | | llecti | | | vemedi | | | [email or web address] | | | m | +---+--------+ documented in this encounter Results CT Angiogram Pulmonary w Contrast (12/11/2019 [...] exposure. A preliminary report was sent by [employer] with no | | | significant discrepancy [...] preliminary report | | was sent by [employer] with no significant discrepancyon 12/11/2019 10:34 | [...] | |A preliminary report was sent by [employer] with no significant discrepancy | |on 12/11/2019 [...] | | | | | | [employer] | | | | | [...] | + + + + + | [facility] | [address] | [place] | [phone] | | [facility] | | [address] | | | - LABORATORY | | [...] | | | + +---------+ + + Comprehensive Metabolic Panel (12/11/2019 9:00 [...] 14 | 9 - 23 mg/dL | [facility] | | | | | | [facility] | | | | | | MEDICAL | | | | | | CENTER - | | | | | | LABORATORY | | + + + + + + | Creatinine | 0.74 | 0.55 - 1.02 | [facility] | | | | | mg/dL | [facility] | | | | | | MEDICAL | | | | | | CENTER - | | | | | | LABORATORY | | + + + + + + | eGFR if not | >60Comment: GLOMERULAR | >=60 | [facility] | | | | FILTRATION | mL/min/1.73m2 | [facility] | | | CYMRO | RATE,ESTIMATED | | MEDICAL | | | | mL/min/1.38b2Kyhf than | | CENTER - | | [...] | 9.6 | 8.7 - 10.4 | [facility] | | | | | mg/dL | [facility] | | | | | | MEDICAL | | | | | | CENTER - | | | | | | LABORATORY | | + + + + + + | Albumin | 4.3 | 3.2 - 4.8 g/dL | [facility] | | | | | | [facility] [...] [address] | [place] | [phone] | | [facility] | | [address] | | | - LABORATORY | | | | + + + + + CBC with Differential (12/11/2019 9:00 [...] | | | | M/uL | [facility] | | | | [...] | | Granulocyte | | | [facility] | | | s | | | MEDICAL | | | | | | CENTER - | | | | | | LABORATORY | | + + + + + + | Absolute | 11.59 (H) | 1.80 - 8.50 | [facility] | | | Neutrophils | | K/uL | [facility] | | | | | | MEDICAL | | | | | | CENTER - | | | | | | LABORATORY | | + + + + + + | Absolute | 1.01 | 0.60 - 3.20 | [facility] | | | Lymphocytes | | K/uL | [facility] | | | | | | MEDICAL | | | | | | CENTER - | | | | | | LABORATORY | | + + + + + + | Absolute | 1.46 (H) | 0.00 - 1.00 | [facility] | | | Monocytes | | K/uL | [facility] | | | | | | MEDICAL | | | | | | CENTER - | | | | | | LABORATORY | | + + + + + + | Absolute | 0.04 | 0.00 - 0.40 | [facility] | | | Eosinophils | | K/uL | [facility] | | | | | | MEDICAL | | | | | | CENTER - | | | | | | LABORATORY | | + + + + + + | Absolute | 0.09 | 0.00 - 0.10 | [facility] | | | Basophils | | K/uL | [facility] | | | | [...] | 0.00 | 0.00 - 0.01 | [facility] | | | nRBC | | K/uL | [facility] | [...] ST. | [address] | [place] | [phone] | | [facility] | | [address] | | | - LABORATORY | | | | + + + + + ECG 12 lead (12/11/2019 6:51 PM PDT) + + + + + [...] | | | | KEYSHAWN ROSS MD ([id number]) | | | | | | on [...] + | Diagnosis | + + | Thoracic myofascial strain, initial encounter - Primary | + + documented in this encounter Administered Medications + +--------+ +--------+------+------+ | Medication Order | MAR | Action | Dose | Rate | Site | | | Action | Date | | | | + +--------+ +--------+------+------+ | acetaminophen (TYLENOL) tablet | Given | 12/11/19 | 650 mg | | | | 650 mg 650 mg, Oral, ONCE, Wed | | 20 11:05 | | | | | 12/11/19 at 2250, For 1 dose | | PM PDT | | | | + +--------+ +--------+------+------+ +---+---+ | | | +---+---+ + +-------+ +--------+---+---+ | fentaNYL (PF) injection 50 mcg | Given | 12/11/19 | 50 mcg | | | | 50 mcg, Intravenous, ONCE, Wed | | 20 9:11 | | | | | 12/11/19 at 2040, For 1 dose | | PM PDT | | | | + +-------+ +--------+---+---+ +---+---+ | | | +---+---+ + +-------+ +--------+---+---+ | fentaNYL (PF) injection 50 mcg | Given | 12/11/19 | 50 mcg | | | | 50 mcg, Intravenous, ONCE, Wed | | 11:02 | | | | | 12/11/19 at 2250, For 1 dose | | PM PDT | | | | + +-------+ +--------+---+---+ +---+---+ | | | +---+---+ + + + + +---+---+ | HYDROcodone-acetaminophen | Dispense | 12/11/19 | 1 tablet | | | | (NORCO) 5-325 mg per tablet (ER | to Home | 20 11:44 | | | | | Prepack) 1 tablet 1 tablet, | | PM PDT | | | | | Oral, EVERY 8 HOURS PRN, pain, | | | | | | | Starting 12/11/19 at 2325, | | | | | | | Patient Address: [address] [place] [address] | | | | | | | [place] [address], | | | | | | + + + + +---+---+ +---+---+ | | | +---+---+ + +-------+ +--------+---+---+ | iohexol (OMNIPAQUE 350) 350 | Given | 12/11/19 | 65 mLs | | | | mg/mL injection 65 mL 65 mL, | | 20 10:20 | | | | | Intravenous, ONCE PRN, Other, | | PM PDT | | | | | Starting Wed12/11/19 at 2220, For | | | | | | | 1 dose, Cat Scanner | | | | | | + +-------+ +--------+---+---+ +---+---+ | | | +---+---+ + +-------+ +-------+---+---+ | ketorolac (TORADOL) injection | Given | 12/11/19 | 15 mg | | | | 15 mg 15 mg, Intravenous, ONCE, | | 20 11:05 | | | | | 12/11/19 at 2250, For 1 dose | | PM PDT | | | | + +-------+ +-------+---+---+ +---+---+ | | | +---+---+ + + + +------+---+---+ | ondansetron (ZOFRAN ODT) | Dispense | 12/11/19 | 4 mg | | | | disintegrating tablet (ED | to Home | 20 11:44 | | | | | homepack) 4 mg 4 mg, Oral, RT | | PM PDT | | | | | EVERY 8 HOURS PRN, Nausea, | | | | | | | Vomiting, Starting 12/11/19 at | | | | | | | 2325 | | | | | | + + + +------+---+---+ +---+---+ | | | +---+---+ + +-------+ +------+---+---+ | ondansetron (ZOFRAN) injection | Given | 12/11/19 | 4 mg | | | | 4 mg 4 mg, Intravenous, ONCE, | | 20 9:07 | | | | | 12/11/19 at 2040, For 1 dose | | PM PDT | | | | + +-------+ +------+---+---+ +---+---+ | | | +---+---+ documented in this encounter
--- OUTSIDE RECORDS SUMMARY | ~2019-12-14 | XMS | Encounter Summary ---
Demographics + + + | Address | [address] | | | [place] [address] | + + + | Home Phone | | + + + | Preferred Language | Unknown | + + + | Marital Status | | + + + | Jainism Affiliation | [id number] | + + + | Race | Unknown | + + + | Ethnic Group | Unknown | + + + Author + + + | Author | [facility] | | | and [place] | + + + | Organization | [facility] | | [...] Team Providers + +------+ + | Care Engineering Recruiter Name | Role | Phone | + [...] | | | Endometrial | | [place] | | | | | hyperplasia | | [address] Phone: | | | | | with atypia | | [phone] | | | | | [[phone]] | | Fax: | | | | | Procedures | | [phone] | | | | | [place] | | | | | | | LAP,PELVIC | | | | | | | LYMPHADENECT | | | | | | | MIGUEL [place] | | | | | | | INTRAOPERATI | | | | | | | VE SENTINEL | | | | | | | LYMPH NODE | | | | | | | ID W DYE | | | | | | | INJECTION | | | | | | | LA | | | | | | | [...] + + | 10/09/ | Hospital | [facility] | Mellisa Kasper | Endometrial | | 2020 | Encounter | [facility] | MD Asha [address] | hyperplasia with | | | | OP [address] | [address] | atypia | | | | [place] | [place] [address] | | | | | [address] | [phone] | | | | | [phone] | | | +--------+ + + + [...] + + + | Blood Pressure | 136/63 | 10/09/2019 11:00 AM | | | | | PST | | + + + + + | Pulse | 56 | 10/09/2019 11:00 AM | | | | | PST | | + + + + + | Temperature | 35.6 C (96 F) | 10/09/2019 10:25 AM | | | | | PST | | + + + + + | Respiratory Rate | 16 | 10/09/2019 11:00 AM | | | | | PST | | + + + + + | Oxygen Saturation | 97% | 10/09/2019 11:00 AM | | | | | PST | | + + + + + | Inhaled Oxygen | - | - | | | Concentration | | | | + + + + + | Weight | 121.5 kg (267 lb | 10/09/2019 5:40 AM | | | | 12.8 oz) | PST | | + + + + + | Height | 160 cm (5' 3") | 10/09/2019 5:40 AM | | | | | PST | | + + + + + | Body Mass Index | 47.44 | 10/09/2019 5:40 AM | | | | | PST | | + + + + + documented in this encounter Discharge Instructions Instructions Mellisa Kasper MD - 10/09/2019Formatting of this note might be differen t from the original. Discharge Instructions for Laparoscopic (Robotic) Hysterectomy Office You had a procedure called a robotic-assisted total laparoscopic hysterectomy.A surgeon r emoved your uterus, cervix, possible tubes, ovaries, and lymph nodes using instruments inser jordyn through small incisions in your abdomen. These incisions may be tender or sore. You may also have pain in your upper back or shoulders. This is from the gas used to enlarge your ab domen to allow your doctor to see inside your pelvis and perform the procedure. This pain us ually goes away in a day or two. It usually takes 6weeks to recover from laparoscopic hyst erectomy. Remember, though, that recovery time varies from woman to woman. Here's what you c an do to speed your recovery following surgery. Home care Continue the coughing and deep breathing exercises that you learned in the hospital. Take your medications exactly as directed by your doctor. Avoid constipation. Eat fruits, vegetables, and whole grains. Drink6 to 8glasses of water a day, unless told to do otherwise. Use a laxative or a mild stool softener (Senekot-S, milk of magnesia, or Miralax) if you r doctor says it's OK. Shower as usual. Wash your incisions with mild soap and water. Pat dry. Don't use oils, powders, or lotions on your incisions. Don't put anything in your vagina until your doctor has examined you and says it's safe to do so. Don't use tampons or douches. Don't have sex. If you had both ovaries removed,report hot flashes, mood swings, and irritability to y our doctor. There may be medications that can help you. No tub baths, hot tubs, or swimming until approved by your doctor. Activity Ask your doctor when you can start driving again. It's usually okay to drive as soon as you are free of pain and able to move comfortably from side to side. Don't drive while you a re still taking opioid pain medications. Ask others to help with chores and errands while you recover. Don t lift anything heavier [id number]. Don t vacuum or do other strenuous activities until the doctor says it's OK. Walk as often as you feel able. Don't drive for a few days after the surgery. You may drive as soon as you are able to m ove comfortably from side to side and when you are no longer taking narcotics. Climb stairs slowly and pause after every few steps. Follow-up care Make a follow-up appointment as directed by our staff. When to call your doctor Call your doctor right away if you have any of the following: Fever otviy156.4F(38C) or chills Bright red vaginal bleeding or vaginal bleeding that soaks more than one sanitary pad pe r hour A foul smelling discharge from the vagina Trouble urinating or burning when you urinate Severe pain or bloating in your abdomen Redness, swelling, or drainage at your incision sites Shortness of breath or chest pain Nausea and vomiting Discharge Instructions: After Your Surgery You ve just had surgery. During surgery, you were given medicine called anesthesia to liz sharma you relaxed and free of pain. After surgery, you may have some pain or nausea. This is com mon. Here are some tips for feeling better and getting well after surgery. Stay on schedule with your medicine. Going home Your healthcare provider will show you how to take care of yourself when you go home. He or she will also answer your questions. Have an adult family member or friend drive you home. For the first 24 hours after your surgery: Do not drive or use heavy equipment. Do not make important decisions or sign legal papers. Do not drink alcohol. Have someone stay with you, if needed. He or she can watch for problems and help keep yo u safe. Be sure to go to all follow-up visits with your healthcare provider. And rest after your lyons rgery for as long as your healthcare provider tells you to. Coping with pain If you have pain after surgery, pain medicine will help you feel better. Take it as tolddior efore pain becomes severe. Also, ask your healthcare provider or pharmacist about other ways to control pain. This might be with heat, ice, or relaxation. And follow any other instruct ions your surgeon or nurse gives you. Tips for taking pain medicine To get the best relief possible, remember these points: Pain medicines can upset your stomach. Taking them with a little food may help. Most pain relievers taken by mouth need at least 20 to 30 minutes to start to work. Taking medicine on a schedule can help you remember to take it. Try to time your medicin e so that you can take it before starting an activity. This might be before you get dressed, go for a walk, or sit down for dinner. Constipation is a common side effect of pain medicines. Call your healthcare provider be fore taking any medicines such as laxatives or stool softeners to help ease constipation. Al so ask if you should skip any foods. Drinkinglots of fluids andeating foodssuch as fru its and vegetables that are high in fiber can also help. Remember, do not take laxatives unl ess your surgeon has prescribed them. Drinking alcohol and taking pain medicine can cause dizziness and slow your breathing. I t can even be deadly. Do not drink alcohol while taking pain medicine. Pain medicine can make you react more slowly to things. Do not drive or run machinery wh ile taking pain medicine. Your healthcare providermay tell you to take acetaminophen to help ease your pain. Ask hi m or her how much you are supposed to take each day. Acetaminophen or other pain relievers m ay interact with your prescription medicines or other pmbh-bhd-cfboqan (OTC) medicines. Some prescription medicines have acetaminophen and other ingredients.Using both prescription a nd OTC acetaminophenfor paincan cause you to overdose. Readthe labels on your OTC [facility]. This will help youto clearly know the list of ingredients, how much to t shaheen, and anywarnings. It may also help you not take too muchacetaminophen.If you have questions or do not understand the information, ask your pharmacist or healthcare provider t o explain it to you before you take the OTC medicine. Managing nausea Some people have an upset stomach after surgery. This is often because of anesthesia, pain, or pain medicine, or the stress of surgery. These tips will help you handle nausea and eat healthy foods as you get better. If you were on a special food plan before surgery, ask your healthcare provider if you should follow it while you get better. These tips may help: Do not push yourself to eat. Your body will tell you when to eat and how much. Start off with clear liquids and soup. They are easier to digest. Next try semi-solid foods, such as mashed potatoes, applesauce, and gelatin, as you feel ready. Slowly move to solid foods. Don t eat fatty, rich, or spicy foods at first. Do not force yourself to have 3 large meals a day. Instead eat smaller amounts more ofte n. Take pain medicines with a small amount of solid food, such as crackers or toast, to abilio id nausea. Call your surgeon if You still have pain an hour after taking medicine. The medicine may not be strong enough . You feel too sleepy, dizzy, or groggy. The medicine may be too strong. You have side effects like nausea, vomiting, or skin changes, such as rash, itching, or hives. If you have obstructive sleep apnea You were given anesthesia medicine during surgery to keep you comfortable and free of pain. After surgery, you may have more apnea spells because of this medicine and other medicines you were given. The spells may last longer than usual. At home: Keep using the continuous positive airway pressure (CPAP) device when you sleep. Unless your healthcare provider tells you not to, use it when you sleep, day or night. CPAP is a co mmon device used to treat obstructive sleep apnea. Talk with your provider before taking any pain medicine, muscle relaxants, or sedatives. Your provider will tell you about the possible dangers of taking these medicines. Date Last Reviewed: 07/16/201619996818-35[address] [place] [address]. All righ ts reserved. This information is not intended as a substitute for professional medical care. Always follow your healthcare professional's instructions. Valuables Dentures: (All belongings returned to pt and family) Vision - Corrective Lenses: None Hearing Aid: None Jewelry: None Clothing: None Other Valuables: None Other Valuables: None Home Medications: None Responsible person(s) in the waiting room?: Chelsie [place] daughter [phone] documented in this encounter Medications at Time [...] tablet by | 30 | 0 | // | | | HYDROcodone-acetamin | mouth every [...] | | | | | | [place] | | | | | | [id number] | | | | | | | [...] +---+--------+ + +--------+ + + + | CBC NO DIFFERENTIAL | Routin | 10/09/2019 | Endometrial | Results for this | | | e | 6:05 AM | hyperplasia with | procedure are in the | | | | PST | atypia | results section. | + +--------+ + + + | BASIC [...] + + documented in this encounter Results Tissue Request For Pathology (10/09/2019 8:12 AM PST) + + | Specimen | + + | | + + + + + | Narrative | Performed At | + + + | | [facility] | | [facility] | [place] | | : 1940 AGE: 79 years SEX: | [facility] | | Female | LABORATORY | | Acct: [id number] | [place] | | Location: [facility]; [facility] MAIN OR POOL; [facility] MAIN OR POOL | | | Case #: [id number] | | | Ordering: MELLISA KASPER MD | | | Client: [facility] | | | Copy To: Printed: 10/10/2019 [...] | | | Benign adipose tissue. See comment.WGR/SK 10/10/19 11:54 | | | amVerified by: MICHAEL PAINTING MDVerify Date: 10/10/2019 12:19 | | | [facility], [facility] [id number]:All of the | | | endometrium has been submitted and examined microscopically. No | | | residual complex endometrial hyperplasia is encountered | | | ([id number]).All of the left (A1) and right (C1) [...] 08:12 PST 10/09/2019 09:14 | | | MICHAEL BRITTON DESCRIPTION:Specimen | | | B labeled and [...] possible corpora | | | albicantia identified grossly.Sole Stainer sections are submitted as | | | [...] | distinct lymph node candidate. All in "C1".CT/[id number] | | | DESCRIPTION:Histologic sections of all submitted blocks are examined | | | by light microscopy. Thesefindings, together with the gross | | | examination, support the pathologic diagnosis. | | + + + + + + + + | Performing | Address | City/State/Zipcode | Phone Number | | Organization | | | | + + + + + | [facility] | [address] | [place] [address] | | | [facility] | | | | | LABORATORY CERNER [...] | | LABORATORY | | | | [facility] [address], | | [place] | | | | [place] [address] | | | | + + + + + + + + | Specimen | + + | Blood specimen | | (specimen) | + + + + + + + | Performing | Address | City/State/Zipcode | Phone Number | | Organization | | | | + + + + + | [facility] | [address] | [place] [address] | | | [facility] | | | | | LABORATORY CERNER [...] [facility] | | | | by [facility] [address], | | SACR[place] | | | | [place] [address] | | HEART | | | |Performed by [facility] [address], [place] [address] | | MEDICAL | | | | [...] + + | [facility] | [address] | [place] [address] | | | [facility] | | | | | LABORATORY CERNER [...] | | | POC | Performed by [facility] [address] | | [address] | | | [address], [place], [place] | | HEART | | | | [address] | | MEDICAL | | | | [...] | + + + + + | [facility] | [address] | [place] [address] | | | [facility] | | | | | LABORATORY [facility] | | | | + + + + + documented in this encounter Visit Diagnoses + + | Diagnosis | + + | Endometrial hyperplasia with atypia | + + documented in this encounter Admitting Diagnoses + + | Diagnosis | + + | Endometrial hyperplasia with atypia | + + documented in this encounter Administered Medications + +--------+ + +------+------+ | Medication Order | MAR | Action | Dose | Rate | Site | | | Action | Date | | | | + +--------+ + +------+------+ | acetaminophen (TYLENOL) tablet | Given | 10/09/19 | 1,000 mg | | | | 1,000 mg 1,000 mg, Oral, SEE | | 20 6:02 | | | | | ADMIN INSTRUCTIONS, Starting Mon | | AM PST | | | | | 10/09/19 at 0532, For 1 dose, | | | | | | | Nursing to give 60 minutes before | | | | | | | time of surgery, Pre-op | | | | | | + +--------+ + +------+------+ + +---+ | | | + +---+ | albuterol 5 mg/mL concentrated | | | nebulizer solution 2.5 mg 2.5 | | | mg, Nebulization, ONCE PRN, | | | Shortness of Breath, Starting Mon | | | 10/09/19 at 0911, For 1 dose, | | | Notify anesthesia if patient is | | | wheezing and does not have a | | | history of asthma or COPD or | | | current smoking., Recovery/Phase | | | I | | + +---+ | | | + +---+ | atropine 0.1 mg/mL syringe 0.5 | | | mg 0.5 mg, Intravenous, PRN, | | | Bradycardia, For HR < 40, | | | Starting Wed10/09/19 at 0911, For | | | 2 doses, May repeat one time | | | after 1 min., Recovery/Phase I | | + +---+ | | | + +---+ + +---------+ +---+---+---+ | balanced electrolytes in water | New Bag | 10/09/19 | | | | | (PLASMALYTE-148/NORMOSOL-R) | | 20 7:54 | | | | | infusion at 10-100 mL/hr, | | AM PST | | | | | Intravenous, CONTINUOUS, Starting | | | | | | | Wed10/09/19 at 0600, TKO., | | | | | | | Pre-op | | | | | | + +---------+ +---+---+---+ +---------+ +---+ +---+ | New Bag | 10/09/19 | | 10 mL/hr | | | | 20 6:04 | | | | | | AM PST | | | | +---------+ +---+ +---+ + +---+ | | | + +---+ | dextrose 50% injection 12.5-25 | | | g 12.5-25 g, Intravenous, EVERY | | | 15 MIN PRN, Low Blood Sugar, Give | | | 12.5g (25 mL) IV if blood | | | glucose 50-69 mg/dL. Give 25g | | | (50 mL) IV if blood glucose < 50, | | | Starting 10/09/19 at 0532, | | | Repeat in 15 min if blood glucose | | | remains < 70 mg/dL. Repeat | | | blood glucose in 30 min once | | | blood glucose > 70., Pre-op | | + +---+ | | | + +---+ | dextrose 50% injection 12.5-25 | | | g 12.5-25 g, Intravenous, EVERY | | | 15 MIN PRN, Low Blood Sugar, For | | | hypoglycemia. Give 12.5g (25ml) | | | IV if blood glucose 50-69 | | | mg/dL. Give 25g (50ml) IV if | | | blood glucose < 50, Starting Mon | | | 10/09/19 at 0911, Give over 2 min. | | | Repeat in 15 min if blood | | | glucose remains < 70 mg/dL. | | | Repeat blood glucose in 30 min | | | once blood glucose > 70., | | | Recovery/Phase I | | + +---+ | | | + +---+ | fentaNYL (PF) injection 25-50 | | | mcg 25-50 mcg, Intravenous, | | | EVERY 5 MIN PRN, Pain, Initial | | | postop urgent pain or escalating | | | pain, Starting 10/09/19 at | | | 0911, For 4 doses, Every 5 | | | minutes PRN for initial postop | | | urgent pain or escalating pain up | | | to 2 doses maximum. If patient | | | meets opioid tolerant definition, | | | can give up to 4 doses maximum. | | | First dose must be lowest dose. | | | Use Pasero Sedation Scale. | | | [Opioid tolerant = One week or | | | longer, ifphhq-yal-sbshz use of | | | at least the following DAILY | | | dose: 60mg oral morphine, 60mg | | | oral hydrocodone, 30mg oral | | | oxycodone, 8mg oral | | | hydromorphone, fentanyl patch | | | 25mcg/hr, or equivalent dose of | | | another opioid], Recovery/Phase I | | + +---+ | | | + +---+ | glycopyrrolate (ROBINUL) | | | injection 0.2 mg 0.2 mg, | | | Intravenous, PRN, Bradycardia, | | | For HR <50, Starting 10/09/19 | | | at 0911, For 2 doses, May repeat | | | one time after 1min, | | | Recovery/Phase I | | + +---+ | | | + +---+ + +-------+ +--------+---+ + | heparin 5,000 units/mL | Given | 10/09/19 | 5,000 | | Leg-Left | | injection 5,000 Units 5,000 | | 20 7:07 | Units | | Upper | | Units, Subcutaneous, RN PRODUCTION, | | AM PST | | | | | Starting 10/09/19 at 0532, For | | | | | | | 1 dose, Check with anesthesia | | | | | | | prior to administration of | | | | | | | heparin., Pre-op | | | | | | + +-------+ +--------+---+ + + +---+ | | | + +---+ | hydrALAZINE (APRESOLINE) | | | injection 5 mg 5 mg, | | | Intravenous, EVERY 20 MINUTES | | | PRN, For SBP > 180, DBP > 100, | | | Starting 10/09/19 at 0911, | | | Hold if HR > 100. Maximum total | | | dose 40 mg. Use labetalol first | | | if available., Recovery/Phase I | | + +---+ | | | + +---+ + +-------+ + +---+---+ | HYDROcodone-acetaminophen | Given | 10/09/19 | 1 tablet | | | | (NORCO) 5-325 mg per tablet 1 | | 20 11:07 | | | | | tablet 1 tablet, Oral, EVERY 6 | | AM PST | | | | | HOURS PRN, Pain, Starting Mon | | | | | | | 10/09/19 at 1102 | | | | | | + +-------+ + +---+---+ + +---+ | | | + +---+ | HYDROmorphone (DILAUDID) | | | injection 0.2-0.6 mg 0.2-0.6 mg, | | | Intravenous, EVERY 5 MIN PRN, | | | Pain, Starting 10/09/19 at | | | 0911, First dose must be lowest | | | dose, can increase subsequent | | | doses by 0.2mg within dosing | | | range. If patient meets opioid | | | tolerant definition, can start | | | with 0.4mg dose. [Maximum total | | | PACU dose 4mg] Use Pasero | | | Sedation Scale. [Opioid tolerant | | | = One week or longer, | | | lyvfzw-pgo-oaxfi use of at least | | | the following DAILY dose: 60mg | | | oral morphine, 60mg oral | | | hydrocodone, 30mg oral oxycodone, | | | 8mg oral hydromorphone, fentanyl | | | patch 25mcg/hr, or equivalent | | | dose of another opioid], | | | Recovery/Phase I | | + +---+ | | | + +---+ | insulin lispro (humaLOG) | | | injection (vial) 0-12 Units 0-12 | | | Units, Subcutaneous, 4 TIMES | | | DAILY WITH MEALS & NIGHTLY, First | | | dose on Wed10/09/19 at 0800, | | | CORRECTION SCALE: Blood Glucose | | | (BG) < 150: None | | | BG 150-200: DAY: 2 units. | | | NIGHT: 0 units BG 201-250: DAY: | | | 4 units. NIGHT: 2 units BG | | | 251-300: DAY: 6 units. NIGHT: | | | 4 units BG 301-350: DAY: 8 | | | units. NIGHT: 6 units BG | | | 351-400: DAY: 10 units. NIGHT: 8 | | | units BG > 400 : DAY: 12 | | | units. NIGHT: 10 units | | | AND CALL PROVIDER | | | , Use DAY DOSE for doses | | | scheduled: AC, NPO, Daytime | | | [id number] Use NIGHT DOSE for | | | doses scheduled: HS, 3AM, | | | Nighttime [phone] If the BG is | | | not checked before the patient | | | starts eating, do not give | | | correction insulin. If HS insulin | | | given, check blood glucose at | | | 3AM. Only for use with U-100 | | | insulin syringe., Pre-op | | + +---+ | | | + +---+ | insulin lispro (humaLOG) | | | injection (vial) 0-12 Units 0-12 | | | Units, Subcutaneous, 4 TIMES | | | DAILY WITH MEALS & NIGHTLY, First | | | dose on Wed10/09/19 at 1200, | | | CORRECTION SCALE: Blood Glucose | | | (BG) < 150: None | | | BG 150-200: DAY: 2 units. | | | NIGHT: 0 units BG 201-250: DAY: | | | 4 units. NIGHT: 2 units BG | | | 251-300: DAY: 6 units. NIGHT: | | | 4 units BG 301-350: DAY: 8 | | | units. NIGHT: 6 units BG | | | 351-400: DAY: 10 units. NIGHT: 8 | | | units BG > 400 : DAY: 12 | | | units. NIGHT: 10 units | | | AND CALL PROVIDER | | | , Use DAY DOSE for doses | | | scheduled: AC, NPO, Daytime | | | [phone] Use NIGHT DOSE for | | | doses scheduled: HS, 3AM, | | | Nighttime [phone] If the BG is | | | not checked before the patient | | | starts eating, do not give | | | correction insulin. If HS insulin | | | given, check blood glucose at | | | 3AM. Only for use with U-100 | | | insulin syringe., Recovery/Phase | | | I | | + +---+ | | | + +---+ | labetalol (TRANDATE) 5 mg/mL | | | injection 5 mg 5 mg, | | | Intravenous, EVERY 5 MIN PRN, For | | | SBP > 180, DBP > 100, Starting | | | 10/09/19 at 0911, Hold if HR < | | | 60. Maximum total dose 300mg. | | | Notify anesthesia if patient | | | requires more than 50mg., | | | Recovery/Phase I | | + +---+ | | | + +---+ | ondansetron (ZOFRAN ODT) | | | disintegrating tablet 4 mg 4 mg, | | | Oral, EVERY 6 HOURS PRN, Nausea, | | | Vomiting, Starting 10/09/19 | | | at 1027, First line agent, | | | Post-op/Phase II | | + +---+ | | | + +---+ | ondansetron (ZOFRAN) injection | | | 4 mg 4 mg, Intravenous, EVERY 4 | | | HOURS PRN, Nausea, Vomiting, | | | Starting 10/09/19 at 0911, | | | Recovery/Phase I | | + +---+ | | | + +---+ | ondansetron (ZOFRAN) injection | | | 4 mg 4 mg, Intravenous, EVERY 6 | | | HOURS PRN, Nausea, Vomiting, | | | Starting 10/09/19 at 1027, | | | First line agent. Use PO option | | | unless NPO status or unable to | | | tolerate., Post-op/Phase II | | + +---+ | | | + +---+ documented in this encounter
--- OUTSIDE RECORDS SUMMARY | ~2019-12-14 | XMS | Encounter Summary ---
Demographics + + + | Address | [address] | | | [place] [address] | + + + | Home Phone | | + + + | Preferred Language | Unknown | + + + | Marital Status | | + + + | Scientology Affiliation | 1077 | + + + | Race | Unknown | + + + | Ethnic Group | Unknown | + + + Author + + + | Author | [facility] | | | and [place] | + + + | Organization | [facility] | | [...] Team Providers + +------+ + | Care Car Greaser Name | Role | Phone | + +------+ + | Karen Alvarado MD | PCP | | + +------+ + Reason for Visit Evaluate & Treat (Routine) +--------+ + + + + + | Status | Reason | Specialty | Diagnoses / | Referred By | Referred To | | | | | Procedures | Contact | Contact | +--------+ + + + + + | Closed | Specialty | Sleep | Diagnoses | López, | [facility] | | | Services | Medicine | LEONARDO | Festus Traore | [place] [address] | | | Required | | (obstructive | MD Julia [address] | | | | | sleep | [address] | [place], | | | | | apnea) | [facility] | [place] [address] | | | | | Procedures | [facility], [place] | Phone: | | | | | [place] POLYSOM | [address] | [phone] | | | | | 6/>YRS SLEEP | Phone: | Fax: | | | | | W/CPAP 4/> | [phone] | [phone] | | | | | ADDL EDWIGE | Fax: | | | | | | ATTND S/N | [phone] | | +--------+ + + + + + Encounter Details +--------+ + + + + | Date | Type | Department | Care Team | Description | +--------+ + + + + | 06/06/ | Hospital | [facility] | Festus Dawn | LEONARDO (obstructive | | 2017 - | Encounter | MED CTR SLEEP | MD [address] | sleep apnea); | | | | CENTER [address] | [address] [facility] | Periodic limb | | 06/07/ | | [place] | [place] [address] | movements of sleep | | 2017 | | [address] | [phone] | | | | | [phone] | | | +--------+ + + + [...] 2019 | Visit | | [address] | | | | | | [place] | | | | | | [address] | | | | | | | | +--------+---------+ + + + documented as of this encounter Procedures + +--------+ + + + | Procedure Name | Priori | Date/Time | Associated Diagnosis | Comments | | | ty | | | | + +--------+ + + + | SLEEP STUDY | Routin | 06/14/2017 | | Results for this | | DIAGNOSTIC ONLY NO | e | 7:59 AM | | procedure are in the | | PAP | | PDT | | results section. | + +--------+ + + + | SLEEP STUDY | Routin | 06/14/2017 | | Results for this | | DIAGNOSTIC ONLY NO | e | 7:59 AM | | procedure are in the | | PAP | | PDT | | results section. | + +--------+ + + + documented in this encounter Results Sleep study diagnostic only (no PAP) (06/14/2017 7:59 AM PDT) + + + | Narrative | Performed At | + + + | Festus Traore | | | López Dumont MD 06/14/2017 8:07 [facility] | | | [place] [address] | | | Polysomnogram Report on Poppy Bah performed on June 06 | | | 2016. Clinical Information: Poppy Bah is a 77 y.o. female | | | who underwent diagnostic nocturnal polysomnography on June 06, 2017 | | | on referral from Dr. Gray Alvarado because of possible obstructive sleep | | | apnea. Technical Information: Please see technical data which is | | | attached. The study was originally scheduled as a split-night study. | | | However the patient did not meet split night criteria (Apnea | | | Hypopnea Index index of 20 or greater and oxygen desaturation of less | | | than 80% during the first 2 hours of sleep). Thus diagnostic | | | polysomnography was performed. Because of shoulder pain the current | | | study was done in her recliner which is the way the patient usually | | | sleeps at home. Definitions (The AASM Manual for the Scoring of Sleep | | | and Associated Events, Version 2.4; 2017): Apnea: There is a drop in | | | the peak signal excursion by 90% or greater of pre-event baseline | | | using an oronasal thermal sensor (diagnostic study), PAP device flow | | | (titration study), or an alternative apnea sensor (diagnostic study); | | | the duration of the 90% or greater drop in sensor signal is 10 seconds | | | or longer. Obstructive Apnea: Event associated with continued or | | | increased inspiratory effort throughout the entire period of absent | | | airflow. Central Apnea: Event associated with absent inspiratory | | | effort throughout the entire period of absent airflow. Mixed Apnea: | | | Event associated with absent inspiratory effort in the initial portion | | | of the event followed by resumption of inspiratory effort during the | | | second portion of the event. Hypopnea: The peak signal excursions drop | | | by greater than or equal to 30% of pre-event baseline using a | | | recommended or alternative airflow sensor and the duration of the >= | | | 30% drop in signal excursion is greater than or equal to 10 seconds | | | and there is a greater than or equal to a 4% oxygen desaturation from | | | pre-event baseline. Respiratory Event Related Arousal: A sequence of | | | breaths lasting 10 seconds or longer characterized by increasing | | | respiratory effort or by flattening of the inspiratory portion of the | | | nasal pressure (diagnostic study) or PAP device flow (titration study) | | | waveform leading to arousal from sleep when the sequence of breaths | | | does not meet criteria for an apnea or hypopnea. Sleep Architecture: | | | Lights out was recorded at 2114 hundred hours on June 06, 2017 | | | and lights on was recorded at 0729 hundred hours on June 07, 2017. | | | The latency to sleep onset was normal at 5 minutes. The patient slept | | | for 533.5 minutes out of 615 minutes of study time resulting an a | | | sleep efficiency that was near normal at 86.7 %. The amount of N1 | | | sleep was normal at 6.3 % of the Total Sleep Time; the amount of N2 | | | sleep was normal at 62.2 % of the Total Sleep Time; the amount of N3 | | | sleep was normal at 6.7 % of the Total Sleep Time; the amount of REM | | | sleep was normal at 24.7 % of the Total Sleep Time and the latency to | | | REM sleep normal at 86.5 minutes. Sleep in the following positions was | | | recorded: Because of shoulder pain, the study was done with the | | | patient sleeping in a recliner which is the way she typically sleeps | | | at home Sleep was minimally fragmented; the Arousal Index was 15.9. | | | The patient reported this to be better than a usual night's sleep. | | | Cardiopulmonary Monitoring: The heart rate averaged in the low 60s | | | beats per minute. Mild rate variability was noted. The rhythm was | | | sinus. In the course of the evening there were 2 obstructive apneas, 0 | | | mixed apneas, 0 central apneas, 166 hypopneas, and 33 Respiratory | | | Effort Related Arousals (RERA's). The Respiratory Disturbance Index | | | (RDI) was elevated at 22.6; the Apnea-Hypopnea Index elevated at 18.9; | | | the Apnea Index (AI) 0.2. The respiratory events were significantly | | | sleep stage dependent. Events were much more frequently seen in | | | Rapid Eye Movement sleep (REM related Apnea Hypopnea Index index 44.5, | | | non-REM related Apnea Hypopnea Index 10.5). The respiratory events | | | occasioned sleep fragmentation; the Respiratory Arousal Index was 9. | | | The lorelei oxygen saturation was 60 % and the patient spent 196.7 | | | minutes with an oxygen saturation of less than 88%. ETCO2 was | | | moderately elevated (50-55 mmHg for 147 minutes, 55-59 mmHg for 153 | | | minutes, 60-64 mmHg for 18 minutes). Limb Movement Monitoring: There | | | were 210 Periodic Limb Movements (PLMS Index of 23.6) of which 13 were | | | associated with arousals; the PLMS Arousal Index was normal at 1.5. | | | Interpretation: This polysomnogram is abnormal secondary to: | | | Obstructive sleep apnea is diagnosed. This is associated with | | | significant oxygen desaturation. It is associated with sleep | | | fragmentation. Although of significance in all positions it is more | | | frequently observed in REM sleep.Periodic limb movements of sleep are | | | present but they do not seem to significantly fragment sleep. | | | Suggestions:1. The principles of sleep hygiene should be reviewed with | | | the patient.2. Polysomnographically guided positive airway pressure | | | titration is recommended.3. A ferritin level should be checked. If | | | the ferritin level is less than 75ug/ml, iron supplementation should | | | be considered to raise the ferritin to above 75ug/ml. This may help | | | with PLMS. Once the ferritin level is above 75ug/ml, pharmacologic | | | therapy of PLMS/RLS should be considered if they are felt to be | | | clinically significant. Festus Dawn Jr., MD, FAASMMedical | | | [facility] Sleep Disorders [facility] | | | [facility] Teacher Education Director of | | | [place] | | |Hypopnea Index 10.5). | | | | | |The respiratory events occasioned sleep fragmentation; the | | |Respiratory Arousal Index was 9. | | | | | |The lorelei oxygen saturation was 60 % and the patient spent 196.7 | | |minutes with an oxygen saturation of less than 88%. | | | | | |ETCO2 was moderately elevated (50-55 mmHg for 147 minutes, 55-59 | | |mmHg for 153 minutes, 60-64 mmHg for 18 minutes). | | | | | |Limb Movement Monitoring: There were 210 Periodic Limb Movements | | |(PLMS Index of 23.6) of which 13 were associated with arousals; | | |the PLMS Arousal Index was normal at 1.5. | | | | | |Interpretation: This polysomnogram is abnormal secondary to: | | | | | |Obstructive sleep apnea is diagnosed. This is associated with | | |significant oxygen desaturation. It is associated with sleep | | |fragmentation. Although of significance in all positions it is | | |more frequently observed in REM sleep. | | |Periodic limb movements of sleep are present but they do not seem | | |to significantly fragment sleep. | | | | | |Suggestions: | | |1. The principles of sleep hygiene should be reviewed with the | | |patient. | | |2. Polysomnographically guided positive airway pressure | | |titration is recommended. | | |3. A ferritin level should be checked. If the ferritin level is | | |less than 75ug/ml, iron supplementation should be considered to | | |raise the ferritin to above 75ug/ml. This may help with PLMS. | | |Once the ferritin level is above 75ug/ml, pharmacologic therapy | | |of PLMS/RLS should be considered if they are felt to be | | |clinically significant. | | | | | |Festus Dawn Jr., MD, [facility] | | |Water Filter Cleaner | | |[facility] | | |[facility] | | |[place] MD | | |Clinical magnaflux operator | | |[facility] | | |[place] | | + + + + + | Procedure Note | + + | Festus Dawn Jr., MD - 06/14/2017 7:59 AM PDT [facility] | | Disorders [place], [place] [id number] Report on | | Poppy Bah performed on June 06, 2017.Clinical Information: Poppy Bah | | is a 77 y.o. female who underwent diagnostic nocturnal polysomnography on June 06, | | [address] Gray Alvarado because of possible obstructive sleep apnea.Technical | | Information: Please see technical data which is attached. The study was originally | | scheduled as a split-night study. However the patient did not meet split night criteria | | (Apnea Hypopnea Index index of 20 or greater and oxygen desaturation of less than 80% | | during the first 2 hours of sleep). Thus diagnostic polysomnography was performed. | | Because of shoulder pain the current study was done in her recliner which is the way the | | patient usually sleeps at home.Definitions (The AASM Manual for the Scoring of Sleep | | and Associated Events, Version 2.4; 2017): Apnea: There is a drop in the peak signal | | excursion by 90% or greater of pre-event baseline using an oronasal thermal sensor | | (diagnostic study), PAP device flow (titration study), or an alternative apnea sensor | | (diagnostic study); the duration of the 90% or greater drop in sensor signal is 10 | | seconds or longer. Obstructive Apnea: Event associated with continued or increased | | inspiratory effort throughout the entire period of absent airflow. Central Apnea: Event | | associated with absent inspiratory effort throughout the entire period of absent | | airflow. Mixed Apnea: Event associated with absent inspiratory effort in the initial | | portion of the event followed by resumption of inspiratory effort during the second | | portion of the event. Hypopnea: The peak signal excursions drop by greater than or equal | | to 30% of pre-event baseline using a recommended or alternative airflow sensor and the | | duration of the >= 30% drop in signal excursion is greater than or equal to 10 seconds | | and there is a greater than or equal to a 4% oxygen desaturation from pre-event | | baseline. Respiratory Event Related Arousal: A sequence of breaths lasting 10 seconds or | | longer characterized by increasing respiratory effort or by flattening of the | | inspiratory portion of the nasal pressure (diagnostic study) or PAP device flow | | (titration study) waveform leading to arousal from sleep when the sequence of breaths | | does not meet criteria for an apnea or hypopnea.Sleep Architecture: Lights out was | | recorded at 2114 hundred hours on June 06, 2017 and lights on was recorded at 0729 | | hundred hours on June 07, 2017. The latency to sleep onset was normal at 5 minutes. | | The patient slept for 533.5 minutes out of 615 minutes of study time resulting an a | | sleep efficiency that was near normal at 86.7 %. The amount of N1 sleep was normal at | | 6.3 % of the Total Sleep Time; the amount of N2 sleep was normal at 62.2 % of the Total | | Sleep Time; the amount of N3 sleep was normal at 6.7 % of the Total Sleep Time; the | | amount of REM sleep was normal at 24.7 % of the Total Sleep Time and the latency to REM | | sleep normal at 86.5 minutes.Sleep in the following positions was recorded: Because of | | shoulder pain, the study was done with the patient sleeping in a recliner which is the | | way she typically sleeps at homeSleep was minimally fragmented; the Arousal Index was | | 15.9.The patient reported this to be better than a usual night's sleep.Cardiopulmonary | | Monitoring: The heart rate averaged in the low 60s beats per minute. Mild rate | | variability was noted. The rhythm was sinus.In the course of the evening there were 2 | | obstructive apneas, 0 mixed apneas, 0 central apneas, 166 hypopneas, and 33 Respiratory | | Effort Related Arousals (RERA's). The Respiratory Disturbance Index (RDI) was elevated | | at 22.6; the Apnea-Hypopnea Index elevated at 18.9; the Apnea Index (AI) 0.2. The | | respiratory events were significantly sleep stage dependent. Events were much more | | frequently seen in Rapid Eye Movement sleep (REM related Apnea Hypopnea Index index | | 44.5, non-REM related Apnea Hypopnea Index 10.5).The respiratory events occasioned sleep | | fragmentation; the Respiratory Arousal Index was 9.The lorelei oxygen saturation was 60 % | | and the patient spent 196.7 minutes with an oxygen saturation of less than 88%.ETCO2 | | was moderately elevated (50-55 mmHg for 147 minutes, 55-59 mmHg for 153 minutes, 60-64 | | mmHg for 18 minutes).Limb Movement Monitoring: There were 210 Periodic Limb Movements | | (PLMS Index of 23.6) of which 13 were associated with arousals; the PLMS Arousal Index | | was normal at 1.5.Interpretation: This polysomnogram is abnormal secondary | | to:Obstructive sleep apnea is diagnosed. This is associated with significant oxygen | | desaturation. It is associated with sleep fragmentation. Although of significance in | | all positions it is more frequently observed in REM sleep.Periodic limb movements of | | sleep are present but they do not seem to significantly fragment sleep.Suggestions:1. | | The principles of sleep hygiene should be reviewed with the patient.2. | | Polysomnographically guided positive airway pressure titration is recommended.3. A | | ferritin level should be checked. If the ferritin level is less than 75ug/ml, iron | | supplementation should be considered to raise the ferritin to above 75ug/ml. This may | | help with PLMS. Once the ferritin level is above 75ug/ml, pharmacologic therapy of | | PLMS/RLS should be considered if they are felt to be clinically significant.Festus Traore. | | Jr. Dawn MD, FAASMMedical DirectorGreat River Medical Center Sleep Disorders | | [place], WAClinical Teacher Education Director of | | [place], [place] | |[place], [place] | + + documented in this encounter Visit Diagnoses + + | Diagnosis | + + | LEONARDO (obstructive sleep apnea) Obstructive sleep apnea (adult) (pediatric) | + + | Periodic limb movements of sleep Periodic limb movement disorder | + + documented in this encounter"
--- OUTSIDE RECORDS SUMMARY | ~2019-12-14 | XMS | Encounter Summary ---
Demographics + + + | Address | [address] | | | [place] [address] | + + + | Home Phone | | + + + | Preferred Language | Unknown | + + + | Marital Status | | + + + | Yazidi Affiliation | 1077 | + + + | Race | Unknown | + + + | Ethnic Group | Unknown | + + + Author + + + | Author | [facility] | | | and [place] | + + + | Organization | [facility] | | [...] Team Providers + +------+ + | Care Gang Bore Operator Name | Role | Phone | + +------+ + PCP | Unavailable | + +------+ + Encounter Details +--------+ + + + + | Date | Type | Department | Care Team | Description | +--------+ + + + + | 06/11/ | Hospital | [facility] | Ghulam Andrews MD | | | 2009 - | Encounter | MED CTR GENERIC IP | [address] | | | | | CONV DEPT [address] | [place], [place] | | | 06/14/ | | [place], | [address] | | | 2009 | | [place] [address] | [phone] | | | | | [phone] | | | +--------+ + + + [...] [place] | | | | | | [id number] | | | | | | | | +--------+---------+ + + + documented as of this encounter Visit Diagnoses Not on filedocumented in this encounter"
--- OUTSIDE RECORDS SUMMARY | ~2019-12-14 | XMS | Encounter Summary ---
Demographics + + + | Address | [address] | | | [place] [address] | + + + | Home Phone | | + + + | Preferred Language | Unknown | + + + | Marital Status | | + + + | Taoist Affiliation | 1077 | + + + | Race | Unknown | + + + | Ethnic Group | Unknown | + + + Author + + + | Author | [facility] | | | and [place] | + + + | Organization | [facility] | | | [...] Team Providers + +------+ + | Care Flat Lock Machine Operator Name | Role | Phone | + +------+ + | Karen Alvarado MD | PCP | | + +------+ + Reason for Visit + + + | Reason | Comments | + + + | CPAP Follow Up | Sleep Resource | + + + Encounter Details +--------+ + + + + | Date | Type | Department | Care Team | Description | +--------+ + + + + | 07/06/ | Clinical | [facility] | Festus Dawn | LEONARDO (obstructive | | 2017 | Support | SLEEP DISORDER [address] | MD [address] | sleep apnea) | | | | [address] | [address] [place] | (Primary Dx) | | | | [place] [address] | [place] [address] | | | | | [phone] | [phone] | | | | | | | | +--------+ + + + [...] + + + | Blood Pressure | 150/80 | 07/06/2017 9:24 AM | | | | | PST | | + + + + + | Pulse | 73 | 07/06/2017 9:24 AM | | | | | PST | | + + + + + | Temperature | - | - | | + + + + + | Respiratory Rate | 16 | 07/06/2017 9:24 AM | | | | | PST | | + + + + + | Oxygen Saturation | 94% | 07/06/2017 9:24 AM | | | | | PST | | + + + + + | Inhaled Oxygen | - | - | | | Concentration | | | | + + + + + | Weight | 125.1 kg (275 lb | 07/06/2017 9:24 AM | | | | 12.7 oz) | PST | | + + + + + | Height | 167.6 cm (5' 6") | 07/06/2017 9:24 AM | | | | | PST | | + + + + + | Body Mass Index | 44.51 | 07/06/2017 9:24 AM | | | | | PST | | + + + + + documented in this encounter Progress Notes Tang Pitt, Neurodiagnostic Tech - 07/06/2017 9:30 AM PSTFormatting of this note migh t be different from the original. Clinical Sleep Support Visit Patient:Poppy Bah Date of :1940 Encounter Date: 07/06/2017 Reason for visit: Chief Complaint Patient presents with CPAP Follow Up Sleep Resource Patient was last seen in our clinic on 06/19/[address] Dawn, referred to us by Dr. Alvarado . PAP was ordered on 06/24/2017 from [employer]. Patient has been using PAP for 11 out of 11 night s, wearing the ResMed S-10 auto PAP with settings of 6 to 12, wearing the Padmini View mask. ~ Vital signs were: BP 150/80 | Pulse 73 | Resp 16 | Ht 1.676 m (5' 6") | Wt 125.1 kg ( 275 lb 12.7 oz) | SpO2 94% | BMI 44.51 kg/m ~ Patient is doing great with no complaints. She did not understand her results until we re viewed and she understood her severity level. Her mask application was good and all PAP sett ings. She did not bring her hose today - no fit test, although all her statistics from her d ownload were very good. ~ Overall leak is 10.8 ~ Compliance >4 hours =100% with AHI of 0.3 ~ Average daily usage of 7:27 Original date of diagnostic study was on 06/06/2017 that showed an AHI of 22.6 (44.5 in REM ) with a O2 Isaías of 60% with 196.7 minutes < 88%. Sleep hygiene reviewed with the patient included study results, all PAP unit functionality and sleep wake cycles Plan for continuous PAP use: 1. Wear PAP any time you are sleeping 2. Continue with PAP indefinitely 3. Follow up with Aopllo CRONIN in 3 weeks (compliance visit) with equipment Tang Pitt RPSGT C[facility] umented in this encounter Plan of Treatment +--------+---------+ + + + | Date | Type | Specialty | Care Team | Description | +--------+---------+ + + + | 07/15/ | Office | Sleep Medicine | Apollo Villa PA | | | 2019 | Visit | | [address] | | | | | | [place] | | | | | | [address] | | | | | | | | +--------+---------+ + + + documented as of this encounter Visit Diagnoses + + | Diagnosis | + + | LEONARDO (obstructive sleep apnea) - Primary Obstructive sleep apnea (adult) (pediatric) | + + documented in this encounter
--- OUTSIDE RECORDS SUMMARY | ~2019-12-14 | XMS | Encounter Summary ---
Demographics + + + | Address | [address] | | | [place] [address] | + + + | Home Phone | | + + + | Preferred Language | Unknown | + + + | Marital Status | | + + + | Congregational Affiliation | 1077 | + + + | Race | Unknown | + + + | Ethnic Group | Unknown | + + + Author + + + | Author | [facility] | | | and [place] | + + + | Organization | [facility] | | | [...] Team Providers + +------+ + | Care Rn Clinical Name | Role | Phone | + +------+ + PCP | Unavailable | + +------+ + Encounter Details +--------+ + + + + | Date | Type | Department | Care Team | Description | +--------+ + + + + | 04/28/ | Abstract | [place] [facility] | [facility] | | | 2011 | | Conversion Location | SR | | | | | [address] | | | | | | [place], [place] | | | | | | [address] | | | | | | [phone] | | | +--------+ + + + [...] 2020 | Visit | | [address] | | | | | | [place] | | | | | | [address] | | | | | | | | +--------+---------+ + + + documented as of this encounter Visit Diagnoses Not on filedocumented in this encounter"
--- OUTSIDE RECORDS SUMMARY | ~2019-12-14 | XMS | Encounter Summary ---
Demographics + + + | Address | [address] | | | [place] [address] | + + + | Home Phone | | + + + | Preferred Language | Unknown | + + + | Marital Status | | + + + | Holiness Affiliation | 1077 | + + + | Race | Unknown | + + + | Ethnic Group | Unknown | + + + Author + + + | Author | [facility] | | | and [place] | + + + | Organization | [facility] | | [...] Team Providers + +------+ + | Care Pipelines Laborer Name | Role | Phone | + [...] Description | +--------+---------+ + + + | 08/02/ | Office | [facility] | Apollo Villa PA | LEONARDO on CPAP (Primary | | 2017 | Visit | SLEEP DISORDER [address] | [address] | Dx) | | | | [address] | [place] | | | | | [place] [address] | [address] | | | | | [phone] | | | +--------+---------+ + + + [...] + + + | Blood Pressure | 142/80 | 08/02/2017 9:54 AM | | | | | PST | | + + + + + | Pulse | 65 | 08/02/2017 9:54 AM | | | | | PST | | + + + + + | Temperature | - | - | | + + + + + | Respiratory Rate | 16 | 08/02/2017 9:54 AM | | | | | PST | | + + + + + | Oxygen Saturation | 96% | 08/02/2017 9:54 AM | | | | | PST | | + + + + + | Inhaled Oxygen | - | - | | | Concentration | | | | + + + + + | Weight | 123.8 kg (272 lb | 08/02/2017 9:54 AM | | | | 14.9 oz) | PST | | + + + + + | Height | - | - | | + + + + + | Body Mass Index | 44.05 | 07/06/2017 9:24 AM | | | | | PST | | + + + + + documented in this encounter Progress Notes Apollo Villa PA - 08/02/2017 10:00 AM PST Subjective: Patient ID: Poppy Bah is a 77 y.o. female. HPI last office visit: 07/06/2017 date of polysomnography: 06/06/2017 AHI: 22.6 (44.5 in REM) RDI: 22.6 O2%: 60% with 196.7 minutes below 88% Machine type: ResMed AirSense 10 Mask type: Respironics AmaraView full face mask DME: [place] in [place] pressure: 6-12 cm with oxygen at 2 L/min Median: 6.8 cm 95%: 8.0 cm maximum: 8.8 cm Nights using CPAP: 30/30 % of nights >4 hours: 100% average usage (all nights): 8:14 average usage (nights used): 8:14 AHI: 0.3 Poppy comes in for CPAP compliance. She is doing well with her CPAP and oxygen, wearing it nightly for the duration of her sleep. She doesn't enjoy using CPAP, but understands the i mportance of treating her apnea and oxygen desaturation. She does not consider sleeping wit hout it. She says she is cleaning her equipment, but not very often and she has not cleaned her filter. We discussed when she is able to replace her equipment. We also discussed the recommended cleaning schedule for her equipment. I have discussed the download in detail. This shows that her sleep apnea is controlled, wi th an AHI of 0.3. It also shows that her leaks are controlled. It shows that she is wearin g her CPAP >4 hours for 100% of the nights during 30 consecutive nights. Review of Systems Objective: BP 142/80 | Pulse 65 | Resp 16 | Wt 123.8 kg (272 lb 14.9 oz) | SpO2 96% | BMI 44.05 k g/m Physical Exam Assessment: Problem #1: OBSTRUCTIVE SLEEP APNEA ([id number]) This is well controlled with CPAP. She is doing well with her CPAP compliance. She has us ed her CPAP >4 hours for 100% of the nights for 30 consecutive nights. Plan: 1. She is to continue with CPAP indefinitely. 2. She is to clean her equipment regularly. I will follow up again in 3 months, sooner prn. At that time we will reassess with all pb ropriate paperwork. Fifteen minutes were spent hykv-sx-adhp, with the majority of time spen t in counseling. Apollo Villa PA-C cc: Karen Alvarado MD documented in this enco unter Plan of Treatment +--------+---------+ + + + | Date | Type | Specialty | Care Team | Description | +--------+---------+ + + + | 07/15/ | Office | Sleep Medicine | Apollo Villa PA | | | 2019 | Visit | | [address] | | | | | | [place] | | | | | | [address] | | | | | | | | +--------+---------+ + + + documented as of this encounter Visit Diagnoses + + | Diagnosis | + + | LEONARDO on CPAP - Primary Obstructive sleep apnea (adult) (pediatric) | + + documented in this encounter"
--- OUTSIDE RECORDS SUMMARY | ~2019-12-14 | XMS | Encounter Summary ---
Demographics + + + | Address | [address] | | | [place] [address] | + + + | Home Phone | | + + + | Preferred Language | Unknown | + + + | Marital Status | | + + + | Zoroastrian Affiliation | 1077 | + + + [...] Team Providers + +------+ + | Care Facility Attendant Name | Role | Phone | + [...] | | | | hyperplasia | | [address] Phone: | | | | | with atypia | | [phone] | | | | | [[phone]] | | Fax: | | | | | Procedures | | [phone] | | | | | [place] | | | | | | | LAP,PELVIC | | | | | | | LYMPHADENECT | | | | | | | MIGUEL [place] | | | | | | | INTRAOPERATI | | | | | | | VE SENTINEL | | | | | | | LYMPH NODE | | | | | | | ID W DYE | | | | | | | INJECTION | | | | | | | [place] | | | | | | | [...] +--------+--------+ + + + + Encounter Details +--------+---------+ + + + | Date | Type | Department | Care Team | Description | +--------+---------+ + + + | 10/09/ | Surgery | [facility] | Mellisa Kasper | [facility] | | 2019 | | [facility] | MD Asha [address] | HYSTERECTOMY WITH | | | | OP [address] | [address] | BILATERAL | | | | [place] | [place] [address] | SALPINGO-OOPHORECTOM | | | | [address] | [phone] | Y AND BILATERAL | | | | [phone] | | SENTINEL LYMPH NODE | | | | | | EXCISION | +--------+---------+ + + + Social History [...] you recover. Don t lift anything heavier [id number] [id number]. Don t vacuum or do other strenuous [...] you have any of the following: Fever alegf352.4F(38C) or chills Bright red vaginal bleeding or [...] were given medicine called anesthesia to liz p you relaxed and free of pain. After [...] help you feel better. Take it as told, b efore pain becomes severe. Also, ask your [...] interact with your prescription medicines or other svft-vse-olbiwil (OTC) medicines. Some prescription medicines have acetaminophen and other ingredients.Using both prescription a nd OTC acetaminophenfor paincan cause you to overdose. Readthe labels on your OTC [facility] care. This will help youto clearly know [...] of taking these medicines. Date Last Reviewed: 07/16/201619999161-6283 [employer]. [address] [place] [address]. All righ ts reserved. This information is not intended as a substitute for professional medical care. Always follow your healthcare professional's instructions. Valuables Dentures: (All belongings returned to pt and family) Vision - Corrective Lenses: None Hearing Aid: None Jewelry: None Clothing: None Other Valuables: None Other Valuables: None Home Medications: None Responsible person(s) in the waiting room?: [place]sie [place] daughter [phone] documented in this encounter Medications at Time [...] | Apply topically | | 0 | /16/ | | | (TEMOVATE) 0.05% | Daily [...] 2019 | Visit | | [address] | | | | | | [place] | | | | | | [address] | | | | | | | [...] At | + + + | | [facility] | | POPPY M[facility] | [place] | | : 1940 AGE: 79 years SEX: | MEDICAL CENTER | | Female | LABORATORY | | Acct: [id number] | [place] | | Location: [facility]; [facility]; [facility] | | | Case #: [id number] | | | Ordering: MELLISA KASPER MD | | | Client: [facility] | | | Copy To: Printed: 10/10/2019 [...] MDVerify Date: 10/10/2019 12:19 | | | [facility], [facility] [id number]:All of the | | | endometrium has been submitted and examined microscopically. No | | | residual complex endometrial hyperplasia is encountered | | | ([id number]).All of the left (A1) and right (C1) [...] possible corpora | | | albicantia identified grossly.Heel Sprayer First sections are submitted as | | | [...] SACRED | [address] | [place] [address] | | | [facility] | | | | | LABORATORY [...] | 79 (L)Comment: eGFR<60 | >=90 | [facility] | | | GFR | consistent with impaired | mL/min/1.73m2 | [facility] | | | | kidney function.For | | HEART | | | | Americans, | | MEDICAL | | | | multiply the calculated | | CENTER | | | | GFR by 1.210Performed by | | LABORATORY | | | | [facility] [address], | | [place] | | | | [place] [address] | | | | + + + + + + + + | Specimen | + + | Blood specimen | | (specimen) | + + + + + + + | Performing | Address | City/State/Zipcode | Phone Number | | Organization | | | | + + + + + | [facility] | [address] | [place] [address] | | | [facility] | | | | | LABORATORY CERNER [...] PROVIDE NCE | | | | by [facility] [address], | | SACRED | | | | [place] [address] | | HEART | | | |Performed by [facility] [address], [place] [address] | | MEDICAL | | | | [...] | + + + + + | [facility] | [address] | [place] [address] | | | [facility] | | | | | LABORATORY CERNER [...] | | | POC | Performed by [facility] [address] | | SACRED | | | [address], [place] | | HEART | | | | [address] | | MEDICAL | | | | [...] SACRED | [address] | [place] [address] | | | HEART [facility] | [...] HR < 40, | | | Starting 10/09/19 at 0911, For | | | 2 [...] +---+---+ | | | +---+---+ + +-------+ +--------+---+ + | bupivacaine 0.25%-EPINEPHrine | Given | 10/09/19 | 30 mLs | | Surgical | | 1:200,000 (PF) injection PRN, | | 20 8:05 | | | Site | | Starting Wed10/09/19 at 0805, | | AM PST | | | [...] glucose < 50, | | | Starting [facility] 10/09/19 at 0532, | | | Repeat [...] One week or | | | longer, gddcar-pph-hfcun use of | | | at least [...] | | Upper | | Units, Subcutaneous, EQUINE PHARMACOLOGY TECHNICIAN, | | AM PST | | | [...] One week or longer, | | | aenqxz-emg-pmdue use of at least | | | [...] + +---+ + +-------+ +--------+---+ + | indocyanine green (IC-GREEN) | Given | 10/09/19 | 2.5 mg | | Surgical | | injection PRN, Starting Wed 7:54 | | | Site | | 10/09/19 at 0754, Intra-op | | AM PST | | | | + +-------+ +--------+---+ [...] scheduled: AC, NPO, Daytime | | | 2872-2568 Use NIGHT DOSE for | | | doses scheduled: HS, 3AM, | | | Nighttime 8203-5216 If the BG is | | | [...] scheduled: AC, NPO, Daytime | | | 1975-2206 Use NIGHT DOSE for | | | doses scheduled: HS, 3AM, | | | Nighttime 2591-7438 If the BG is | | | [...] PRN, Nausea, Vomiting, | | | Starting Wed10/09/19 at 0911, | | | Recovery/Phase I [...]
--- OUTSIDE RECORDS SUMMARY | ~2019-12-14 | XMS | Encounter Summary ---
Demographics + + + | Address | [address] | | | [place] [address] | + + + | Home Phone | | + + + | Preferred Language | Unknown | + + + | Marital Status | | + + + | Restorationism Affiliation | 1077 | + + + | Race | Unknown | + + + | Ethnic Group | Unknown | + + + Author + + + | Author | [facility] | | | and [place] | + + + | Organization | [facility] | | | [...] Team Providers + +------+ + | Care Press Set Up Name | Role | Phone | + +------+ + | Karen Alvarado MD | PCP | | + +------+ + Encounter Details +--------+ + + + + | Date | Type | Department | Care Team | Description | +--------+ + + + + | 06/12/ | Anesthesia | [facility] | Apollo Pitt MD | | | 2019 | Event | MED CTR OR INTRA OP | [address] | | | | | [address] | [place] | | | | | [place], [place] | [address] | | | | | [address] | | | | | | [phone] | Nikhil Bernabe | | | | | | MD [place] [address] | | | | | | [address] [place], [place] | | | | | | [address] | | | | | | [phone] | | | | | | | | +--------+ + + + + Anesthesia Record + + + + + | Procedure Name | Responsible | Anesthesia Start | Anesthesia Stop Time | | | Anesthesiologist | Time | | + + + + + | Hysteroscopy D&C | Apollo Pitt MD | 06/12/19844 | 06/12/19930 | | with possible | | | | | myosure polypectomy | | | | | (N/A Uterus) | | | | + + + + + +----+---+ + + | Da | T | Event | Comment | | te | i | | | | | m | | | | | e | | | +----+---+ + + | 10 | 0 | | | | /2 | 8 | | | | 8/ | 3 | | | | 20 | 6 | | | | 19 | | | | +----+---+ + + | | 0 | An Checkout | Pre-use anesthesia machine/equipment checkout. | | | 8 | | | | | 4 | | | | | 5 | | | +----+---+ + + | | 0 | An Start | Reassessment prior to anesthesia induction/procedure. | | | 8 | | | | | 4 | | | | | 5 | | | +----+---+ + + | | 0 | AN | Per surgeon request | | | 8 | Antibiotic | | | | 4 | declined | | | | 5 | | | +----+---+ + + | | 0 | Preoxygenat | | | | 8 | ed | | | | 4 | | | | | 8 | | | +----+---+ + + | | 0 | An | | | | 8 | Induction | | | | 4 | | | | | 9 | | | +----+---+ + + | | 0 | An | | | | 8 | Intubation | | | | 5 | | | | | 1 | | | +----+---+ + + | | 0 | Fontana | | | | 8 | 43-degrees | | | | 5 | | | | | 5 | | | +----+---+ + + | | 0 | First | | | | 9 | Inc/Proc St | | | | 0 | | | | | 0 | | | +----+---+ + + | | 0 | Fontana off | | | | 9 | | | | | 2 | | | | | 4 | | | +----+---+ + + | | 0 | Breathing | | | | 9 | Spontaneous | | | | 2 | ly | | | | 4 | | | +----+---+ + + | | 0 | Oropharynx | | | | 9 | Suctioned | | | | 2 | | | | | 4 | | | +----+---+ + + | | 0 | Moving | | | | 9 | Purposefull | | | | 2 | y | | | | 6 | | | +----+---+ + + | | 0 | Extubated | | | | 9 | Awake | | | | 2 | | | | | 6 | | | +----+---+ + + | | 0 | an stop | | | | 9 | data | | | | 2 | | | | | 6 | | | +----+---+ + + | | 0 | An Stop | Patient handed off to recovery nurse. | | | 3 | | | | | 1 | | | +----+---+ + + +------+ | Meds | +------+ + +---------+ | Name | Total | + +---------+ | fentaNYL injection (2 mL) | 100 mcg | + +---------+ | lidocaine 2% | 60 mg | + +---------+ | propofol (DIPRIVAN) injection | 200 mg | | (bolus) (20 mL) | | + +---------+ | dexamethasone | 10 mg | + +---------+ | ondansetron | 4 mg | + +---------+ | cisatracurium | 1 mg | + +---------+ | succinylcholine (ANECTINE) | 100 mg | | injection | | + +---------+ | lactated ringers (LR) infusion | 400 mL | + +---------+ + + | Name | + + | N2O Flow Rate (L/Min) | + + | O2 Flow Rate (L/Min) | + + | Insp O2 | + + | Exp SEV | + + | Air Flow Rate (L/Min) | + + + + | No blood administrations on file. | + + +--------+ + + + | Type | Details | Placement | Removal | +--------+ + + + | Periph | 06/12/19; 0830; Right; Forearm; | 06/12/19829 by | 06/12/191130 by | | teresita | bbxr-qqg-ttycla catheter system; | Clare Tripathi RN | Jesus Alberto Rodriguez RN | | IV | 20 gauge; Other (see comment) | | | | | (CBC); distraction, intradermal | | | | | injection; 06/12/19; 1131 | | | +--------+ + + + | Airway | Placement Date: 06/12/19; | 06/12/19850 by | 06/12/19925 by | | | Placement Time: 850 (created via | Apollo Pitt MD | Apollo Pitt MD | | | procedure documentation); Airway | | | | | Grade: 1; Successful Technique: | | | | | video scope; Laryngoscope Blade | | | | | Size: 3; Attempts: 1; Airway | | | | | Type: endotracheal; Size: 6.5; | | | | | Airway Tube Secured At: 22; | | | | | Trauma: none; Other Equipment: | | | | | stylette; Placement Check: | | | | | exhaled CO2 detection device, | | | | | bilateral chest rise; Removal | | | | | Date: 06/12/19; Removal Time: | | | | | 925 | | | +--------+ + + + | Wound | 06/12/19; 900; Incision; | 06/12/19900 by | 06/12/191130 by | | | Bilateral; perineum; Healing; | Elen Gonzalez RN | Jesus Alberto Rodriguez RN | | | 06/12/19; 1131 | | | +--------+ + + + [...] [place] | | | | | | [address] | | | | | | | | +--------+---------+ + + + documented as of this encounter Procedures + +--------+ + + + | Procedure Name | Priori | Date/Time | Associated Diagnosis | Comments | | | ty | | | | + +--------+ + + + | ANE AIRWAY NOTE | Routin | 06/12/2019 | | Results for this | | | e | 9:00 AM | | procedure are in the | | | | PDT | | results section. | + +--------+ + + + documented in this encounter Results Airway (06/12/2019 9:00 AM PDT) + + + | Narrative | Performed At | + + + | Apollo Pitt MD 06/12/2019 9:00 Anesthesia Airway | | | Placement 06/12/2019 8:51 Preprocedure check: patient identified, | | | oxygen, airway assessed, patient reassessment prior to induction, | | | airway equipment checked and suction Rapid Sequence Induction: no | | | Successful technique: videoscope Laryngoscope blade size: 3 | | | Airway grade: 1 (Full view of glottis) Other equipment: stylette | | | Attempts: 1 Airway type: endotracheal Size: 6.5 Cuffed: cuffed | | | Tube depth: 22 cm Tube secured with: adhesive tape Trauma: none | | | Tube placement verification: bilateral chest rise and carbon dioxide | | | detection Performing provider: Apollo Pitt MD Please see | | | intraoperative grid for any additional medication documentation. | | + + + + + | Procedure Note | + + | Apollo Pitt MD - 06/12/2019 9:00 AM PDT Anesthesia Airway Jmvkbzjep14/28/2019 | | 8:51Preprocedure check: patient identified, oxygen, airway assessed, patient | | reassessment prior to induction, airway equipment checked and suctionRapid Sequence | | Induction: noSuccessful technique: videoscopeLaryngoscope blade size: 3 Airway grade: 1 | | (Full view of glottis)Other equipment: styletteAttempts: 1Airway type: | | endotrachealSize: 6.5Cuffed: cuffedTube depth: 22 cmTube secured with: adhesive | | tapeTrauma: noneTube placement verification: bilateral chest rise and carbon dioxide | | detectionPerforming provider: Tonja Maciel see intraoperative grid for any | | additional medication documentation. | |Attempts: 1 | |Airway type: endotracheal | |Size: 6.5 | |Cuffed: cuffed | |Tube depth: 22 cm | |Tube secured with: adhesive tape | |Trauma: none | |Tube placement verification: bilateral chest rise and carbon dioxide detection | |Performing provider: Apollo Pitt MD | | | | | | | |Please see intraoperative grid for any additional medication documentation. | + + documented in this encounter Visit Diagnoses Not on filedocumented in this encounter Administered Medications + +--------+ +------+------+------+ | Medication Order | MAR | Action | Dose | Rate | Site | | | Action | Date | | | | + +--------+ +------+------+------+ | cisatracurium (PF) (NIMBEX) | Given | 06/12/20 | 1 mg | | | | injection Intravenous, PRN, | | 19 8:46 | | | | | Starting 06/12/19 at 0846, | | AM PDT | | | | | Anesthesia Intra-op | | | | | | + +--------+ +------+------+------+ +---+---+ | | | +---+---+ + +-------+ +-------+---+---+ | dexamethasone (PF) 10 mg/mL | Given | 06/12/20 | 10 mg | | | | injection Intravenous, PRN, | | 19 8:59 | | | | | Starting 06/12/19 at 0859, | | AM PDT | | | | | Anesthesia Intra-op | | | | | | + +-------+ +-------+---+---+ +---+---+ | | | +---+---+ + +-------+ +---------+---+---+ | fentaNYL (PF) injection | Given | 06/12/20 | 100 mcg | | | | Intravenous, PRN, Starting Mon | | 19 8:57 | | | | | 06/12/19 at 0857, Anesthesia | | AM PDT | | | | | Intra-op | | | | | | + +-------+ +---------+---+---+ +---+---+ | | | +---+---+ + +---------+ +---+---+---+ | lactated ringers (LR) infusion | New Bag | 06/12/20 | | | | | at 10-100 mL/hr, Intravenous, | | 19 8:45 | | | | | CONTINUOUS, Starting 06/12/19 | | AM PDT | | | | | at 0845, TKO., Pre-op | | | | | | + +---------+ +---+---+---+ +---+---+ | | | +---+---+ + +-------+ +-------+---+---+ | lidocaine (PF) 2% injection | Given | 06/12/20 | 60 mg | | | | Intravenous, PRN, Starting Mon | | 19 8:47 | | | | | 06/12/19 at 0847, Anesthesia | | AM PDT | | | | | Intra-op | | | | | | + +-------+ +-------+---+---+ +---+---+ | | | +---+---+ + +-------+ +------+---+---+ | ondansetron (ZOFRAN) injection | Given | 06/12/20 | 4 mg | | | | Intravenous, PRN, Starting Mon | | 19 8:59 | | | | | 06/12/19 at 0859, Anesthesia | | AM PDT | | | | | Intra-op | | | | | | + +-------+ +------+---+---+ +---+---+ | | | +---+---+ + +-------+ +--------+---+---+ | propofol (DIPRIVAN) injection | Given | 06/12/20 | 200 mg | | | | Intravenous, PRN, Starting Mon | | 19 8:49 | | | | | 06/12/19 at 0849, Anesthesia | | AM PDT | | | | | Intra-op | | | | | | + +-------+ +--------+---+---+ +---+---+ | | | +---+---+ + +-------+ +--------+---+---+ | succinylcholine (ANECTINE) | Given | 06/12/20 | 100 mg | | | | injection PRN, Starting Mon | | 19 8:49 | | | | | 06/12/19 at 0849, Anesthesia | | AM PDT | | | | | Intra-op | | | | | | + +-------+ +--------+---+---+ +---+---+ | | | +---+---+ documented in this encounter"
--- OUTSIDE RECORDS SUMMARY | ~2019-12-14 | XMS | Encounter Summary ---
Demographics + + + | Address | [address] | | | [place] [address] | + + + | Home Phone | | + + + | Preferred Language | Unknown | + + + | Marital Status | | + + + | Synagogue Affiliation | 1077 | + + + | Race | Unknown | + + + | Ethnic Group | Unknown | + + + Author + + + | Author | [facility] | | | and [place] | + + + | Organization | [facility] | | | and [...] Team Providers + +------+ + | Care Contact Lens Assistant Name | Role | Phone | + +------+ + | Karen Alvarado MD | PCP | | + +------+ + Encounter Details +--------+---------+ + + + | Date | Type | Department | Care Team | Description | +--------+---------+ + + + | 06/12/ | Surgery | [facility] | [place], | Hysteroscopy D&C | | 2019 | | MED CTR OR [facility] OP | DO [address] | with possible | | | | [address] | [place], [place] | myosure polypectomy | | | | [place], [place] | [address] | | | | | [address] | | | | | | [phone] | | | +--------+---------+ + + + [...] + + + | Blood Pressure | 140/49 | 06/12/2019 11:15 AM | | | | | PDT | | + + + + + | Pulse | 53 | 06/12/2019 11:15 AM | | | | | PDT | | + + + + + | Temperature | 36.2 C (97.2 F) | 06/12/2019 9:28 AM | | | | | PDT | | + + + + + | Respiratory Rate | 21 | 06/12/2019 10:41 AM | | | | | PDT | | + + + + + | Oxygen Saturation | 96% | 06/12/2019 11:15 AM | | | | | PDT | | + + + + + | Inhaled Oxygen | - | - | | | Concentration | | | | + + + + + | Weight | 128.1 kg (282 lb 6.6 | 06/12/2019 8:03 AM | | | | oz) | PDT | | + + + + + | Height | 165.1 cm (5' 5") | 06/12/2019 8:03 AM | | | | | PDT | | + + + + + | Body Mass Index | 47 | 06/12/2019 8:03 AM | | | | | PDT | | + + + + + documented in this encounter Discharge Summaries Shelbie Craft DO - 06/12/2019 9:44 AM PDTFormatting of this note might be different fro m the original. GYNECOLOGY DISCHARGE SUMMARY ID: Poppy Bah is a 79 y.o. Date of Admission: 06/12/2019 Date of Discharge: 06/12/2019 Disposition: home Primary/Secondary Diagnosis: Principal Problem: Status post hysteroscopic polypectomy Active Problems: Hypothyroidism Obstructive sleep apnea on CPAP Status post hysteroscopy Postmenopausal bleeding Diagnosis: Principal Problem: Status post hysteroscopic polypectomy Active Problems: Hypothyroidism Obstructive sleep apnea on CPAP Status post hysteroscopy Postmenopausal bleeding Procedures: Procedure(s) with comments: Hysteroscopy D&C with possible myosure polypectomy - myosure polypectomy Complications: none Condition of wound: healing well Condition on discharge: stable Summary: patient was admitted and taken to the operating room where the above procedure was performed without complications. She was subsequently discharged home in stable condition per out-patient protocol Discharge Instructions: Medications: Discharge Medications New Medications Details ibuprofen 600 MG tablet Take 1 tablet by mouth every 6 hours as needed for Pain. aka: LEEANNE HILL Unchanged Medications Details aspirin 81 mg EC tablet Take 81 mg by mouth Daily. atenolol 50 mg tablet Take 25 mg by mouth Daily. aka: TENORMIN CALCIUM-D PO Take by mouth. furosemide 40 mg tablet Take 40 mg by mouth 2 times daily. aka: LASIX levothyroxine 150 mcg tablet Take 150 mcg by mouth every morning (before breakfast). aka: SYNTHROID potassium chloride 20 mEq ER tablet Take 20 mEq by mouth Daily. aka: Klor-Con M20 risedronate 150 MG tablet Take 150 mg by mouth Every 30 days. aka: ACTONEL sulfaSALAzine 500 mg tablet Take 500 mg by mouth 2 times daily. aka: AZULFIDINE UNABLE TO FIND Med Name:Resmed AirSense 10 autoset CPAP: 6-12cm with oxygen 2 l/min. Follow-up appointment: As scheduled with Dr. Craft in 2 weeks Activity: Pelvic rest until cleared by MD. No driving while on narcotic medications Diet: Regular as tolerated Instructions: Return to hospital for fevers, chills, severe abdominal pain not relieved b y pain medication, inability to tolerate any po, heavy vaginal bleeding or a foul smelling d ischarge, or any other concerns. Electronically Signed by: Shelbie Craft DO 06/12/2019 9:44 documented in this encounter Discharge Instructions Instructions Shelbie Craft DO - 06/12/2019Formatting of this note might be different fro m the original. Endometrial Biopsy Endometrial biopsy is a procedure used to study the lining of the uterus. The uterus is als o called the endometrium. The biopsy is usually done in your healthcare provider s office. During the biopsy, small tissue samples are taken from inside the uterus. These are then se nt to a lab for study. If any problems are found, you and your healthcare provider will disc uss treatment options. The biopsy usually takes only a fewminutes, and you can often go ba ck to your normal routine as soon as the procedure is over. Reasons for the procedure Endometrial biopsy may help pinpoint the cause of certain problems. These include: Abnormal Pap test results Bleeding after menopause Bleeding associated with hormone therapy Having certain types of cancer Heavy or irregular menstrual periods Prolonged bleeding Trouble getting (fertility problems) Damage to the uterine wall (very rare) What are the risks? Problems with endometrial biopsy are rare, but can include: Bleeding Damage to the uterine wall (very rare) Infection Getting ready for the procedure Yourhealthcare providerwill ask about your health and any medicines you take, like bloo d thinners. Before your biopsy, you may have tests to make sure you re not or hav e an infection. You may also be asked to sign a consent form. You should do the following 1 to 2 days before the biopsy: Don't use creams or other vaginal medicines. Don't douche. Ask your healthcare provider if you should take pain medicines shortly before the test. During the biopsy During the biopsy, you will likely experience the following: You will be asked to lie on an exam table with your knees bent, just as you do for a Pap test. You may have a brief pelvic exam. An instrument called a speculum is then inserted into the vagina to hold it open. An antiseptic solution may be applied to the cervix. The cervix may also be numbed with an anesthetic or dilated to widen the opening. A small tube is passed through the cervix into the uterus. It is normal to feel some cramping when the tube is inserted. But tell your healthcare p hirenviirina if you have severe cramping or are very uncomfortable. Using mild suction, samples are taken from the uterine lining. You may feel pinching or additional cramping when this is done. The tube and speculum are then removed and the samples are sent to a lab for study. After the procedure After the procedure, you may experience the following: If you feel lightheaded or dizzy, you can rest on the table until you re ready to get dressed. For a few hours, you may feel some mild cramping. This can usually be relieved with over -the-counter pain medicines. You may have some bleeding for a few days. Use pads instead of tampons. Don t douche or use any vaginal medicines unless your healthcare provider says it s OK. Ask your healthcare provider when it s OK to have sex again. Follow-up care It will take about a week for the biopsy results to come back from the lab. Then you and yo ur healthcare provider can discuss the results. These may show that no treatment is required . Or you may be scheduled for a follow-up appointment and more tests. If your biopsy was don e for fertility problems, be sure to record the day when your next period begins. Call your healthcare provider Call your healthcare provider if you have any of the following: Fever of100.4F (38C) or higher, or as directed by your healthcare provider Foul-smelling or unusual vaginal discharge Heavy bleeding (soaking more than 1 pad an hour for 2 hours) Severe cramping or increasing pain Date Last Reviewed: 01/14/201719996570-7348 [employer]. [address] [place] [address]. All righ ts reserved. This information is not intended as a substitute for professional medical care. Always follow your healthcare professional's instructions. AttachmentsThe following attachments cannot be sent through Care Everywhere.Dilation and Cu rettage (Serbian)documented in this encounter Medications at Time of [...] 2019 | Visit | | [address] | | | | | | [place] | | | | | | [address] | | | | | | | | +--------+---------+ + + + documented as of this encounter Procedures + +--------+ + + + | Procedure Name | Priori | Date/Time | Associated Diagnosis | Comments | | | ty | | | | + +--------+ + + + | DILATION AND | | 06/12/2019 | N/A | | | CURETTAGE / | | 8:45 AM | | | | HYSTEROSCOPY | | PDT | | | + +--------+ + + + | CBC WITH | Routin | 06/12/2019 | | Results for this | | DIFFERENTIAL | e | 8:45 AM | | procedure are in the | | | | PDT | | results section. | + +--------+ + + + | POC GLUCOSE | Routin | 06/12/2019 | | Results for this | | | e | 8:41 AM | | procedure are in the | | | | PDT | | results section. | + +--------+ + + + | SURGICAL PATHOLOGY | Routin | 06/12/2019 | | Results for this | | EXAM | e | 12:00 AM | | procedure are in the | | | | PDT | | results section. | + +--------+ + + + documented in this encounter Results CBC with Differential (06/12/2019 8:45 AM PDT) + + + + + + | Component | Value | Ref Range | Performed | Pathologist | | | | | At | Signature | + + + + + + | WBC | 6.8 | 4.0 - 11.0 K/uL | [facility] | | [facility] | | | | | [facility] | | | [facility] - | | | | | | LABORATORY | | + + + + + + | RBC | 4.66 | 3.70 - 5.20 | [facility] | | | | | M/uL | [facility] | | | | | | [facility] | | | | | | [facility] - | | | | | | LABORATORY | | + + + + + + | Hemoglobin | 14.4 | 11.5 - 16.0 | [facility] | | | | | g/dL | [facility] | | | | | | [facility] | | | | | | [facility] - | | | | | | LABORATORY | | + + + + + + | Hematocrit | 44.0 | 34.0 - 47.0 % | [facility] | | | | | [facility] | | | | | | [facility] | | | | | | [facility] - | | | | | | LABORATORY | | + + + + + + | MCV | 94.4 | 83.0 - 101.0 fL | [facility] | | | [facility] | | | | | | [facility] | | | | | | [facility] - | | | | | | LABORATORY | | + + + + + + | MCH | 30.9 | 28.0 - 35.0 pg | [facility] | | | | | [facility] | | | | | | [facility] | | | | | | [facility] - | | | | | | LABORATORY | | + + + + + + | MCHC | 32.7 | 32.0 - 36.0 | [facility] | | | | | g/dL | [facility] | | | | | | [facility] | | | | | | [facility] - | | | | | | LABORATORY | | + + + + + + | RDW-CV | 14.2 | <15.0 % | [facility] | [facility] | | | | | | [facility] | | | | | | [facility] - | | | | | | LABORATORY | | + + + + + + | RDW-SD | 49.1 (H) | 35.1 - 46.3 fL | [facility] | | | | | | [facility] | | | | | | [facility] - | | | | | | LABORATORY | | + + + + + + | Platelet | 274 | 140 - 440 K/uL | [facility] | | | Count | | | [facility] | | | | | | [facility] | | | | | | [facility] - | | | | | | LABORATORY | | + + + + + + | MPV | 11.2 | 6.5 - 12.4 fL | [facility] | | | | [facility] | | | | | | [facility] | | | | | | [facility] - | | | | | | LABORATORY | | + + + + + + | % | 63.3 | 45.0 - 82.0 % | [facility] | | | Neutrophils | | | [facility] | | | | | | [facility] | | | | | | C[facility] - | | | | | | LABORATORY | | + + + + + + | % | 21.0 | 20.0 - 45.0 % | [facility] | | | Lymphocytes | | | [facility] | | | | | | [facility] | | | | | | C[facility] - | | | | | | LABORATORY | | + + + + + + | % Monocytes | 11.7 | 4.0 - 12.0 % | [facility] | | | | | [facility] | | | | | | [facility] | | | | | | [facility] - | | | | | | LABORATORY | | + + + + + + | % | 2.7 | 0.0 - 5.0 % | [facility] | | | Eosinophils | | | [facility] | | | | | | [facility] | | | | | | CENTER - | | | | | | LABORATORY | | + + + + + + | % Basophils | 1.2 (H) | 0.0 - 1.0 % | [facility] | | | | | | [facility] | | | | | | [facility] | | | | | | C[facility] - | | | | | | LABORATORY | | + + + + + + | % Immature | 0.1 | 0.0 - 0.4 % | [facility] | | | Granulocyte | | | [facility] | | s | | | [facility] | | | | | | CENTER - | | | | | | LABORATORY | | + + + + + + | Absolute | 4.29 | 1.80 - 8.50 | [facility] | | | Neutrophils | | K/uL | [facility] | | | | | | MEDICAL | | | | | | CENTER - | | | | | | LABORATORY | | + + + + + + | Absolute | 1.42 | 0.60 - 3.20 | [facility] | | | Lymphocytes | | K/uL | [facility] | | | | | | [facility] | | | | | | CENTER - | | | | | | LABORATORY | | + + + + + + | Absolute | 0.79 | 0.00 - 1.00 | [facility] | | | Monocytes | | K/uL | [facility] | | | | | | [facility]ICAL | | | | | | CENTER - | | | | | | LABORATORY | | + + + + + + | Absolute | 0.18 | 0.00 - 0.40 | [facility] | | | Eosinophils | | K/uL | [facility] | | | | | | MEDICAL | | | | | | CENTER - | | | | | | LABORATORY | | + + + + + + | Absolute | 0.08 | 0.00 - 0.10 | [facility] | | | Basophils | | K/uL | [facility] | | | | | | MEDICAL | | | | | | CENTER - | | | | | | LABORATORY | | + + + + + + | Absolute | 0.01 | 0.00 - 0.03 | [facility] | [...] | + + + + + | [facility] | [address] | [place] | [phone] | | [facility] | | [address] | | | - LABORATORY | | | | + + + + + POC Glucose (06/12/2019 8:41 AM PDT) + +-------+ + + + | Component | Value | Ref Range | Performed | Pathologist | | | | | At | Signature | + +-------+ + + + | Glucose, | 101 | 70 - 109 mg/dL | [facility] | | | POC | | | [facility] | | | | | | MEDICAL | | | | | | CENTER - | | | | | | LABORATORY | | + +-------+ + + + + + | Specimen | + + | Blood | + + + + + + + | Performing | Address | City/State/Zipcode | Phone Number | | Organization | | | | + + + + + | [facility] | [address] | [place], [place] | [phone] | | [facility] | | [address] | | | - LABORATORY | | | | + + + + + Surgical Pathology Exam (06/12/2019 12:00 AM PDT) + + | Specimen | + + | | + + + + + | Narrative | Performed At | + + + | SPECIMEN(S): A ENDOMETRIAL CURETTINGS [facility]IMEN [facility]: [facility] | | ENDOMETRIAL CURETTINGS CLINICAL HISTORY: No preop or clinical | [facility] | | information is given on requisition. FINAL PATHOLOGIC DIAGNOSIS: | | | Uterus, endometrium, curettage: - Complex hyperplasia with mild | | | atypia. - Negative for overt malignancy. COMMENT: As part of | | | [facility] Quality Improvement Program, this case was | | | reviewed by another member of our pathology staff. | | | LJA:NRT:cml:C2NR MICROSCOPIC EXAMINATION: Histologic sections of | | | all submitted blocks are examined by light microscopy. These | | | findings, together with the gross examination, support the pathologic | | | diagnosis. GROSS DESCRIPTION: The specimen, labeled "EL, | | | endometrial curettings," is received in formalin and consists of a 4.0 | | | x 2.8 x 0.4 cm aggregate of red-brown hemorrhagic and friable | | | fragments admixed with mucus. The specimen is entirely submitted in | | | cassettes (A1-A2). AM (under the direct supervision of a pathologist) | | | The Gross Description was prepared using a voice recognition | | | system. The report was reviewed for accuracy; however, sound-alike | | | word errors, addition and/or deletions may occur. If there is any | | | question about this report, please contact Client Services. | | | PERFORMING LABORATORY: The technical component was performed by | | | [facility], [address] [place] [id number] (Medical | | | Director: Chrissie Brooks MD; CLIA# [id number]). Professional | | | interpretation was performed by [facility] | | | branch, [address] [facility], [address] [address] | | | (Personnel Security Assistant: Simeon Monsalve MD; CLIA# [id number]). | | | Diagnostician: Simeon Monsalve MD Pathologist Electronically | | | Signed 06/14/2019 | | + + + + +---------+ [...] | acetaminophen (TYLENOL) tablet | Given | 06/12/20 | 1,000 mg | | | | 1,000 mg 1,000 mg, Oral, ONCE, | | 19 8:27 | | | | | 06/12/19 at 0845, For 1 dose, | | AM PDT | | | | | Pre-op | | | | | | + +--------+ + +------+------+ + +---+ | | | + +---+ | albuterol 2.5 mg/3 mL nebulizer | | | solution 2.5 mg 2.5 mg, | | | Nebulization, ONCE PRN, Wheezing, | | | Starting 06/12/19 at 0928, | | | For 1 dose, Notify anesthesia if | | | patient is wheezing and does not | | | have a history of asthma or COPD | | | or current smoking., | | | Recovery/Phase I | | + +---+ | | | + +---+ | atropine 0.1 mg/mL syringe 0.5 | | | mg 0.5 mg, Intravenous, PRN, | | | Bradycardia, For HR < 40, | | | Starting 06/12/19 at 0928, | | | For 2 doses, May repeat one time | [...] glucose < 50, | | | Starting 06/12/19 at 0816, | | | Repeat in 15 min [...] < 50, Starting Mon | | | 06/12/19 at 0928, Give over 2 | | | min. Repeat in 15 min if blood | | | glucose remains < 70 mg/dL. | | | Repeat blood glucose in 30 min | | | once blood glucose > 70., | | | Recovery/Phase I | | + +---+ | | | + +---+ | ePHEDrine (AKOVAZ) 50 mg/mL | | | injection 5 mg 5 mg, | | | Intravenous, EVERY 5 MIN PRN, if | | | SBP <90., Starting 06/12/19 | | | at 0928, Hold if HR > 100. | | | Maximum total dose 20mg., | | | Recovery/Phase I | | + +---+ | | | + +---+ | fentaNYL (PF) injection 12.5-50 | | | mcg 12.5-50 mcg, Intravenous, | | | EVERY 5 MIN PRN, Pain, Starting | | | 06/12/19 at 0928, First dose | | | must be lowest dose, can increase | | | subsequent doses by 12.5mcg | | | within dosing range. If patient | | | received previous higher PACU | | | dose or meets opioid tolerant | | | definition, can start with 25mcg | | | dose and increase subsequent | | | doses by 25mcg within dosing | | | range. [Maximum total PACU dose | | | 200mcg] Use Pasero Sedation | | | Scale. [Opioid tolerant = One | | | week or longer, mdymjz-lpz-atizn | | | use of at least the following | | | DAILY dose: 60mg oral morphine, | | | 60mg oral hydrocodone, 30mg oral | | | oxycodone, 8mg oral | | | hydromorphone, fentanyl patch | | | 25mcg/hr, or equivalent dose of | | | another opioid], Recovery/Phase I | | + +---+ | | | + +---+ | ibuprofen (ADVIL, MOTRIN) | | | tablet 400 mg 400 mg, Oral, | | | EVERY 8 HOURS (3 times per day), | | | First dose on Wed06/13/19 at | | | 1400, If urine output is less | | | than 240ml/8 hours (30ml/hr) or | | | if signs of bleeding, contact MD | | | and hold. Administer with food | | | or snack, Post-op/Phase II | | + +---+ | | | + +---+ | ketorolac (TORADOL) injection | | | 15 mg 15 mg, Intravenous, EVERY | | | 6 HOURS (4 times per day), First | | | dose on Wed06/12/19 at 1200, For | | | 4 doses, If urine output is less | | | than 240ml/8 hours (30ml/hr) or | | | if signs of bleeding, contact MD | | | and hold., Post-op/Phase II | | + +---+ | | | + +---+ + +---------+ +---+---+---+ | lactated ringers (LR) infusion | New Bag | 06/12/20 | | | | | at 10-100 mL/hr, Intravenous, | | 19 8:45 | | | | | CONTINUOUS, Starting 06/12/19 | | AM PDT | | | | | at 0845, TKO., Pre-op | | | | | | + +---------+ +---+---+---+ + +---+ | | | + +---+ | metoclopramide (REGLAN) 5 mg/mL | | | injection 10 mg 10 mg, | | | Intravenous, EVERY 6 HOURS PRN, | | | Nausea, Vomiting, Starting Mon | | | 06/12/19 at 0816, Protect from | | | light., Pre-op | | + +---+ | | | + +---+ | ondansetron (ZOFRAN) injection | | | 4 mg 4 mg, Intravenous, ONCE | | | PRN, Nausea, Starting Mon | | | 06/12/19 at 0928, For 1 dose, | | | Recovery/Phase I | | + +---+ | | | + +---+ documented in this encounter
--- OUTSIDE RECORDS SUMMARY | ~2019-12-14 | XMS | Encounter Summary ---
Demographics + + + | Address | [address] | | | [place] [address] | + + + | Home Phone | | + + + | Preferred Language | Unknown | + + + | Marital Status | | + + + | Sikh Affiliation | 1077 | + + + | Race | Unknown | + + + | Ethnic Group | Unknown | + + + Author + + + | Author | [facility] | | | and [place] | + + + | Organization | [facility] | | | and [...] Team Providers + +------+ + | Care Grounds Manager Name | Role | Phone | + +------+ + | Karen Alvarado MD | PCP | | + +------+ + Encounter Details +--------+ + + + + | Date | Type | Department | Care Team | Description | +--------+ + + + + | 09/21/ | Transcribed | [facility] | Mellisa Castillo | Hypertension, | | 2020 | Orders | MED CTR | MD Asha [address] | unspecified type | | | | [facility] | [address] | (Primary Dx); | | | | [address] [place] | [place] [address] | Endometrial | | | | [place] [address] | [phone] | hyperplasia with | | | | [phone] | | atypia | +--------+ + + + + Social [...] [facility] | | | | | | [id number] | | | | | | | | +--------+---------+ + + + documented as of this encounter Results ECG 12 lead (09/21/2019 [...] | | | | KEYSHAWN ROSS MD ([id number]) | | | | | | on [...] + | Diagnosis | + + | Hypertension, unspecified type - Primary | + + | Endometrial hyperplasia with atypia | + + documented in this encounter"
--- OUTSIDE RECORDS SUMMARY | ~2019-12-14 | XMS | Encounter Summary ---
Demographics + + + | Address | [address] | | | [place] [address] | + + + | Home Phone | | + + + | Preferred Language | Unknown | + + + | Marital Status | | + + + | Confucianism Affiliation | 1077 | + + + | Race | Unknown | + + + | Ethnic Group | Unknown | + + + Author + + + | Author | [facility] | | | and [place] | + + + | Organization | [facility] | | | and [...] Team Providers + +------+ + | Care Stock Room Manager Name | Role | Phone | + +------+ + | Karen Alvarado MD | PCP | | + +------+ + Encounter Details +--------+ + + + + | Date | Type | Department | Care Team | Description | +--------+ + + + + | 06/12/ | Hospital | [facility] | Luana, Shelbie, | | | 2019 | Encounter | MED CTR OR INTRA OP | DO [address] | | | | | [address] | [place] | | | | | [place] | [address] | | | | | [address] | | | | | | [phone] | | | +--------+ + + + [...] 6 hours as needed for Pain. aka: ADVIL,MOTRIN Unchanged Medications Details aspirin 81 mg EC [...] is inserted. But tell your healthcare p raffy if you have severe cramping or are [...] cramping or increasing pain Date Last Reviewed: 01/14/201719997204-5391 [employer]. [address] [place] [address]. All righ ts reserved. This information is not intended as a substitute for professional medical care. Always follow your healthcare professional's instructions. AttachmentsThe following attachments cannot be sent through Care Everywhere.Dilation and Cu rettage (Syriac)documented in this encounter Medications at Time of [...] [place] | | | | | | [address] | | | | | | | [...] | | | | g/dL | [facility] | | | | [...] | | | | WBCs | [facility] | | | | | | MEDICAL | | | | | | CENTER - | | | | | | LABORATORY | | + + + + + + | Absolute | 0.00 | 0.00 - 0.01 | [facility] | | | nRBC | | K/uL | [facility] | | | | [...] + + + + + | [facility] | [address] | [place] | [phone] | | [facility] | | [address] | | | - LABORATORY | | | | + + + + + POC Glucose (06/12/2019 8:41 AM PDT) + +-------+ + + + | Component | Value | Ref Range | Performed | Pathologist | | | | | At | Signature | + +-------+ + + + | Glucose, | 101 | 70 - 109 mg/dL | [facility] | | | POC | | | [facility] | | [...] ST. | [address] | [place] | [phone] | | [facility] | | [address] | | | - LABORATORY | | | | + + + + + Surgical Pathology Exam (06/12/2019 12:00 AM PDT) + + | Specimen | + + | | + + + + + | Narrative | Performed At | + + + | SPECIMEN(S): A ENDOMETRIAL CURETTINGS SPECIMEN SOURCE: [facility] | | ENDOMETRIAL CURETTINGS CLINICAL HISTORY: No preop or clinical | [facility] | | information is given on requisition. FINAL PATHOLOGIC DIAGNOSIS: | | | Uterus, endometrium, curettage: - Complex hyperplasia with mild | | | atypia. - Negative for overt malignancy. COMMENT: As part of | | | [facility] Quality Improvement Program, this case was | [...] component was performed by | | | [facility], [address] [place] [id number] (Medical | | | Director: Chrissie Brooks MD; CLIA# [id number]). Professional | | | interpretation was performed by [facility] [place] | | | [place] [facility], [address] [place] [address] | | | (Energy Conservation Technician: Simeon Monsalve MD; CLIA# [id number]). | | | Diagnostician: Simeon Monsalve MD [...] + | Diagnosis | + + | Obstructive sleep apnea on CPAP Obstructive sleep apnea (adult) (pediatric) | + + | Hypothyroidism Unspecified hypothyroidism | + + | Status post hysteroscopy | + + | Status post hysteroscopic polypectomy | + + | Postmenopausal bleeding | + + documented in this encounter [...] One | | | week or longer, [id number] | | | use of at least [...]
--- OUTSIDE RECORDS SUMMARY | ~2019-12-14 | XMS | Encounter Summary ---
Demographics + + + | Address | [address] | | | [place] [address] | + + + | Home Phone | | + + + | Preferred Language | Unknown | + + + | Marital Status | | + + + | Baptist Affiliation | 1077 | + + + | Race | Unknown | + + + | Ethnic Group | Unknown | + + + Author + + + | Author | [facility] | | | and [place] | + + + | Organization | [facility] | | | [...] Team Providers + +------+ + | Care Hog Sticker Name | Role | Phone | + [...] Medicine | [place]O | Festus Traore | [place] [address] | | | Required | | (obstructive | MD [address] | [place] | | | | | sleep | [place] | [place], | | | | | apnea) | [place] | [place] [address] | | | | | Procedures | [place], [place] | Phone: | | | | | [place] POLYSOM | [address] | [phone] | | | | | 6/>YRS SLEEP | Phone: | Fax: | | | | | W/CPAP 4/> | [phone] | [phone] | | | | | ADDL EDWIGE | Fax: | | | | | | ATTND | [phone] | | | | | | CPAP(DOS | | | | | | | scheduled | | | | | | | for 06/18/17) | | | +--------+ + + + + + Encounter Details +--------+ + + + + | Date | Type | Department | Care Team | Description | +--------+ + + + + | 11/03/ | Hospital | [facility] | López Festus Eugenie | LEONARDO (obstructive | | 2017 - | Encounter | MED CTR SLEEP | MD Julia [address] [place] [address] | sleep apnea); | | | | CENTER [address] | [place] [address] [facility] | Periodic limb | | 06/19/ | | [place], [place] | [place] [address] | movements of sleep | | 2017 | | [address] | [phone] | | | | | [phone] | | | +--------+ + + + [...] | | | | | | [place] | | | | | | [address] | | | | | | | | +--------+---------+ + + + documented as of this encounter Procedures + +--------+ + + + | Procedure Name | Priori | Date/Time | Associated Diagnosis | Comments | | | ty | | | | + +--------+ + + + | SLEEP STUDY PAP | Routin | 06/24/2017 | | Results for this | | TITRATION | e | 8:32 AM | | procedure are in the | | | | PST | | results section. | + +--------+ + + + | SLEEP STUDY PAP | Routin | 06/24/2017 | | Results for this | | TITRATION | e | 8:32 AM | | procedure are in the | | | | PST | | results section. | + +--------+ + + + documented in this encounter Results Sleep study PAP titration (06/24/2017 8:32 AM PST) + + + | Narrative | Performed At | + + + | [facility] | | | López Dumont MD 06/24/2017 8:40 [facility] | | | [place] [address] | | | Positive Airway Pressure Titration Report on Poppy Bah | | | performed on June 18, 2017. Clinical Information: Poppy Bah | | | is a 77 y.o. female who underwent polysomnographically guided PAP | | | on June 18, 2017. Diagnostic nocturnal polysomnography performed | | | on June 06, 2017 demonstrated an Apnea Hypopnea Index index was | | | elevated at 18.9 with associated severe oxygen desaturation (lorelei | | | oxygen saturation 60%, 196.7 minutes with an oxygen saturation of less | | | than 88%). Periodic limb movements of sleep were seen but they did | | | not significantly fragment sleep. Technical Information: Please see | | | technical data which is attached. Definitions (The AASM Manual for the | | | Scoring of Sleep and Associated Events, Version 2.4; 2017): Apnea: | | | There is a drop in the peak signal excursion by 90% or greater of | | | pre-event baseline using an oronasal thermal sensor (diagnostic | | | study), PAP device flow (titration study), or an alternative apnea | | | sensor (diagnostic study); the duration of the 90% or greater drop in | | | sensor signal is 10 seconds or longer. Obstructive Apnea: Event | | | associated with continued or increased inspiratory effort throughout | | | the entire period of absent airflow. Central Apnea: Event associated | | | with absent inspiratory effort throughout the entire period of absent | | | airflow. Mixed Apnea: Event associated with absent inspiratory | | | effort in the initial portion of the event followed by resumption of | | | inspiratory effort during the second portion of the event. Hypopnea: | | | The peak signal excursions drop by greater than or equal to 30% of | | | pre-event baseline using a recommended or alternative airflow sensor | | | and the duration of the >= 30% drop in signal excursion is greater | | | than or equal to 10 seconds and there is a greater than or equal to a | | | 4% oxygen desaturation from pre-event baseline. Respiratory Event | | | Related Arousal: A sequence of breaths lasting 10 seconds or longer | | | characterized by increasing respiratory effort or by flattening of the | | | inspiratory portion of the nasal pressure (diagnostic study) or PAP | | | device flow (titration study) waveform leading to arousal from sleep | | | when the sequence of breaths does not meet criteria for an apnea or | | | hypopnea. Sleep Architecture: Lights out was recorded at 2148 | | | hundred hours on June 18, 2017 and lights on was recorded at 0642 | | | hundred hours on June 19, 2017. The latency to sleep onset was | | | normal at 7.5 minutes. The patient slept for 373 minutes out of 534 | | | minutes of study time resulting an a sleep efficiency that was low at | | | 69.9 %. The amount of N1 sleep was elevated at 13.5 % of the Total | | | Sleep Time; the amount of N2 sleep was normal at 63.3 % of the Total | | | Sleep Time; the amount of N3 sleep was low normal at 5.2 % of the | | | Total Sleep Time; the amount of REM sleep was normal at 18 % of the | | | Total Sleep Time and the latency to REM sleep was normal at 101.5 | | | minutes. The sleep efficiency has declined in comparison to the | | | diagnostic study. Sleep was recorded in the following positions: | | | Because of shoulder discomfort the patient slept in a recliner for the | | | entire evening Sleep was minimally fragmented; the Arousal Index was | | | 17.5. The patient reported this to be better than a "usual" night's | | | sleep. Cardiopulmonary Monitoring: The heart rate averaged 60s beats | | | per minute. Mild rate variability was noted. The rhythm was | | | premature ventricular contractions were noted intermittently | | | throughout the evening.. The patient started the evening on CPAP of 5 | | | cm and was titrated to CPAP of 10 cm. Obstructive apnea was well | | | controlled at CPAP of 8 cm and higher however hypoxemia was noted. | | | For this reason the night technologist switch to bilevel positive | | | airway pressure which did not result in improvement in oxygen | | | saturation. The patient was then switched back to CPAP therapy if | | | oxygen bled into the circuit tree. The patient was then titrated to | | | CPAP of 8 cm with 2 L of oxygen bled into the circuit tree which | | | resulted in an Apnea Hypopnea Index index of 0.52 with a lorelei oxygen | | | saturation of 87%. REM sleep was noted at this pressure. Limb | | | Movement Monitoring: There were 133 Periodic Limb Movements (PLMS | | | Index 21.4) of which 17 were associated with arousals; the PLMS | | | Arousal Index was normal at 2.7. Interpretation: This is a | | | satisfactory CPAP titration study. CPAP of 8 cm with oxygen 2 L/m | | | satisfactorily controls obstructive sleep apnea and nocturnal oxygen | | | desaturation. Periodic limb movements of sleep are present but they | | | do not seem to fragment sleep. Suggestions:1) The principles of Sleep | | | Hygiene should be reviewed with the patient.2) CPAP of 8 cm with | | | oxygen 2 L a minute is advised.3) A ferritin level should be checked. | | | If the ferritin level is less than 75ug/ml, iron supplementation | | | should be considered to raise the ferritin to above 75ug/ml. This may | | | help with PLMS. Once the ferritin level is above 75ug/ml, | | | pharmacologic therapy of PLMS/RLS should be considered if they are | | | felt to be clinically significant. Festus Dawn Jr., MD, | | | [facility]ENTERMedical DirectorSouth [facility] County [facility] | | | [facility] | | | Recruiting Intern of [place] | | |the night technologist switch to bilevel positive airway pressure | | |which did not result in improvement in oxygen saturation. The | | |patient was then switched back to CPAP therapy if oxygen bled | | |into the circuit tree. The patient was then titrated to CPAP of | | |8 cm with 2 L of oxygen bled into the circuit tree which resulted | | |in an Apnea Hypopnea Index index of 0.52 with a lorelei oxygen | | |saturation of 87%. REM sleep was noted at this pressure. | | | | | |Limb Movement Monitoring: There were 133 Periodic Limb Movements | | |(PLMS Index 21.4) of which 17 were associated with arousals; the | | |PLMS Arousal Index was normal at 2.7. | | | | | |Interpretation: This is a satisfactory CPAP titration study. | | | CPAP of 8 cm with oxygen 2 L/m satisfactorily controls | | |obstructive sleep apnea and nocturnal oxygen desaturation. | | | Periodic limb movements of sleep are present but they do not | | |seem to fragment sleep. | | | | | |Suggestions: | | |1) The principles of Sleep Hygiene should be reviewed with the | | |patient. | | |2) CPAP of 8 cm with oxygen 2 L a minute is advised. | | |3) A ferritin level should be checked. If [...] | | | |Festus Dawn Jr., MD, [facility] | | |[place] | | |[facility] | | |[facility] | | |[place] | | |Clinical scientific advisor | | |[facility] | | |[place], [place] | | + + + + + | Procedure Note | + + | Festus Dawn Jr., MD - 06/24/2017 8:32 AM PST [facility] | | Disorders [place], [place] [address]Uhmfgjwe Airway Pressure | | Titration Report on Poppy Bah performed on June 18, 2017.Clinical | | Information: Poppy Bah is a 77 y.o. female who underwent polysomnographically | | guided PAP on June 18, 2017. Diagnostic nocturnal polysomnography performed on | | June 06, 2017 demonstrated an Apnea Hypopnea Index index was elevated at 18.9 with | | associated severe oxygen desaturation (lorelei oxygen saturation 60%, 196.7 minutes with | | an oxygen saturation of less than 88%). Periodic limb movements of sleep were seen but | | they did not significantly fragment sleep.Technical Information: Please see technical | | data which is attached.Definitions (The AASM Manual for the Scoring of Sleep and | | Associated Events, Version 2.4; 2017): Apnea: There [...] Lights out was | | recorded at 2148 hundred hours on June 18, 2017 and lights on was recorded at 0642 | | hundred hours on June 19, 2017. The latency to sleep onset was normal at 7.5 minutes. | | The patient slept for 373 minutes out of 534 minutes of study time resulting an a | | sleep efficiency that was low at 69.9 %. The amount of N1 sleep was elevated at 13.5 % | | of the Total Sleep Time; the amount of N2 sleep was normal at 63.3 % of the Total Sleep | | Time; the amount of N3 sleep was low normal at 5.2 % of the Total Sleep Time; the amount | | of REM sleep was normal at 18 % of the Total Sleep Time and the latency to REM sleep | | was normal at 101.5 minutes. The sleep efficiency has declined in comparison to the | | diagnostic study.Sleep was recorded in the following positions: Because of shoulder | | discomfort the patient slept in a recliner for the entire eveningSleep was minimally | | fragmented; the Arousal Index was 17.5.The patient reported this to be better than a | | "usual" night's sleep.Cardiopulmonary Monitoring: The heart rate averaged 60s beats per | | minute. Mild rate variability was noted. The rhythm was premature ventricular | | contractions were noted intermittently throughout the evening..The patient started the | | evening on CPAP of 5 cm and was titrated to CPAP of 10 cm. Obstructive apnea was well | | controlled at CPAP of 8 cm and higher however hypoxemia was noted. For this reason the | | night technologist switch to bilevel positive airway pressure which did not result in | | improvement in oxygen saturation. The patient was then switched back to CPAP therapy if | | oxygen bled into the circuit tree. The patient was then titrated to CPAP of 8 cm with | | 2 L of oxygen bled into the circuit tree which resulted in an Apnea Hypopnea Index index | | of 0.52 with a lorelei oxygen saturation of 87%. REM sleep was noted at this | | pressure.Limb Movement Monitoring: There were 133 Periodic Limb Movements (PLMS Index | | 21.4) of which 17 were associated with arousals; the PLMS Arousal Index was normal at | | 2.7.Interpretation: This is a satisfactory CPAP titration study. CPAP of 8 cm with | | oxygen 2 L/m satisfactorily controls obstructive sleep apnea and nocturnal oxygen | | desaturation. Periodic limb movements of sleep are present but they do not seem to | | fragment sleep.Suggestions:1) The principles of Sleep Hygiene should be reviewed with | | the patient.2) CPAP of 8 cm with oxygen 2 L a minute is advised.3) A ferritin level | | should be checked. If the ferritin level is less than 75ug/ml, iron supplementation | | should be considered to raise the ferritin to above 75ug/ml. This may help with PLMS. | | Once the ferritin level is above 75ug/ml, pharmacologic therapy of PLMS/RLS should be | | considered if they are felt to be clinically significant.Festus Dawn Jr., MD, | | FAAMedical DirectorSouth Mississippi County Regional Medical Center Sleep Disorders [facility] | | [facility] [place] Recruiting Intern of MedicineM[facility] | | [place], [place] | + + documented in this encounter Visit Diagnoses + + | Diagnosis | + + | LEONARDO (obstructive sleep apnea) Obstructive sleep apnea (adult) (pediatric) | + + | Periodic limb movements of sleep Periodic limb movement disorder | + + documented in this encounter
--- OUTSIDE RECORDS SUMMARY | ~2019-12-14 | XMS | Encounter Summary ---
Demographics + + + | Address | [address] | | | [place] [address] | + + + | Home Phone | | + + + | Preferred Language | Unknown | + + + | Marital Status | | + + + | Muslim Affiliation | 1077 | + + + | Race | Unknown | + + + | Ethnic Group | Unknown | + + + Author + + + | Author | [facility] | | | and [place] | + + + | Organization | [facility] | | | [...] Team Providers + +------+ + | Care Buggy Runner Name | Role | Phone | + +------+ + PCP | Unavailable | + +------+ + Encounter Details +--------+ + + + + | Date | Type | Department | Care Team | Description | +--------+ + + + + | 10/17/ | Hospital | [facility] | Ghulam Andrews MD | | | 2008 - | Encounter | MED CTR GENERIC IP | [address] | | | | | CONV DEPT [address] | [place], [place] | | | 10/20/ | | [place], | [address] | | | 2008 | | [place] [address] | [phone] | | | | | [phone] | | | +--------+ + + + [...] [place] | | | | | | [id number] | | | | | | | | +--------+---------+ + + + documented as of this encounter Visit Diagnoses Not on filedocumented in this encounter"
--- OUTSIDE RECORDS SUMMARY | ~2019-12-14 | XMS | Encounter Summary ---
Demographics + + + | Address | [address] | | | [place] [address] | + + + | Home Phone | | + + + | Preferred Language | Unknown | + + + | Marital Status | | + + + | Sikh Affiliation | 1077 | + + + | Race | Unknown | + + + | Ethnic Group | Unknown | + + + Author + + + | Author | [facility] | | | and [place] | + + + | Organization | [facility] | | [...] Team Providers + +------+ + | Care Pricing Specialist Name | Role | Phone | + +------+ + | Karen Alvarado MD | PCP | | + +------+ + Encounter Details +--------+ + + + + | Date | Type | Department | Care Team | Description | +--------+ + + + + | 04/05/ | Hospital | [facility] | Ghanshyam Caballero MD | | | 2019 | Encounter | MED CTR MP INTRA OP | [address] | | | | | [address] | [place], [place] | | | | | [place], [place] | [address] | | | | | [address] | [phone] | | | | | [phone] | | | +--------+ + + + [...] [place] | | | | | | [address] | | | | | | | [...] 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 [facility]:C2NR GROSS DESCRIPTION: The | | | specimen, [...] LABORATORY: The technical component was performed by [facility] | | | [facility]ostics, [address] [place] [address] (Merchandise Displayer: | | | Chrissie Brooks MD; CLIA# [id number]). Professional interpretation was | | | performed by [facility], [address] | | | [place] [address] (Merchandise Displayer: Roque Tolbert D.O.; CLIA#: | | | [id number]). Diagnostician: Francisco Castellanos MD Pathologist | | | Electronically Signed 04/06/2019 | | + + + + +---------+ + + | Performing | Address | City/State/[facility] | Phone Number | | Organization | | | | + +---------+ + + | [place] [facility] | | | | | [facility] | | | | + +---------+ + + documented in this encounter Visit Diagnoses + + | Diagnosis | + + | Hypothyroidism Unspecified hypothyroidism | + + | Obstructive sleep apnea on CPAP Obstructive sleep apnea (adult) (pediatric) | + + documented in this encounter
--- OUTSIDE RECORDS SUMMARY | ~2019-12-14 | XMS | Encounter Summary ---
Demographics + + + | Address | [address] | | | [place] [address] | + + + | Home Phone | | + + + | Preferred Language | Unknown | + + + | Marital Status | | + + + | Christianity Affiliation | 1077 | + + + | Race | Unknown | + + + | Ethnic Group | Unknown | + + + Author + + + | Author | [facility] | | | and [place] | + + + | Organization | [facility] | | | [...] Team Providers + +------+ + | Care Storage Management Architect Name | Role | Phone | + [...] Description | +--------+---------+ + + + | 06/24/ | Office | [facility] | Festus Dawn | LEONARDO (obstructive | | 2017 | Visit | SLEEP DISORDER [address] | MD Julia [address] | sleep apnea) | | | | [address] [place] | [address] [place] | (Primary Dx) | | | | [place] [address] | [place] [address] | | | | | [phone] | [phone] | | | | | | | [...] + + + | Blood Pressure | 148/74 | 06/24/2017 8:16 AM | | | | | PST | | + + + + + | Pulse | 65 | 06/24/2017 8:16 AM | | | | | PST | | + + + + + | Temperature | - | - | | + + + + + | Respiratory Rate | 14 | 06/24/2017 8:16 AM | | | | | PST | | + + + + + | Oxygen Saturation | 94% | 06/24/2017 8:16 AM | | | | | PST | | + + + + + | Inhaled Oxygen | - | - | | | Concentration | | | | + + + + + | Weight | 124.8 kg (275 lb 2.2 | 06/24/2017 8:16 AM | | | | oz) | PST | | + + + + + | Height | - | - | | + + + + + | Body Mass Index | 47.23 | 05/04/2017 8:36 AM | | | | | PDT | | + + + + + documented in this encounter Patient Instructions Patient Instructions Festus Dawn Jr., MD - 06/24/2017 8:56 AM PSTFormatting of this n ote might be different from the original. Continuous Positive Airway Pressure (CPAP) Your healthcare provider has prescribed continuous positive airway pressure (CPAP) therapy for you. A CPAPdevice helps you breathe better at night. The device sends air through your nose or mouth when you breathe in to keep your air passages open. CPAP is: Used most often to treat sleep apnea and some other problems. (Sleep apnea is a chronic condition with periods of sleep in which you briefly stop breathing.) Safe and very effective. But it takes time to get used to the mask. Your healthcare provider, nurse, or medical supplier will give you tips for wearing and car ing for your CPAP device. General guidelines Recommendations include the following: It's very important not togive up! It takes time to get used to wearing the mask at [facility]. Practice using your CPAP device during the day, especially whenever you take a nap. Remember, there are several different types of masks. If you can t get used to your ma sk, ask your provider or medical supply company about trying another style. If you have nasal stuffiness or dryness when using your CPAP device, talk with your prov ider or medical supply company. There are ways to ease these problems. For example, your pro vider may recommend using a moistening nasal spray. Or the medical supply company may recomm end a device with a humidifier. The goal is to use yourCPAP all night, every night, during all naps, and even when you travel. Keep your mask clean. Wash it with soap and water. Be sure to rinse the mask and tubing well with water to remove any soap. Let them air-dry completely before using. Make yourself comfortable when sleeping with CPAP. Try using extra pillows. Work with your [employer] supply company so that you know how to correctly use your CPAP. The company's retail wireless sales representative will be able to help you: Use the CPAP correctly Troubleshoot any problems that come up Learn to clean and maintain the device Adjust to regular use of the CPAP The CPAP device settings are given as centimeters of water, or cm/H2O. Each person s pres sure settings are different. Your healthcare provider will tell you what settings to use. Ne kasi change your CPAP pressure setting unless your provider tells you to. CPAP cm/H20 pressure when you breathe in Date Last Reviewed: 12/15/201519999423-2814 The [employer]. [address] [place] [id number]. All righ ts reserved. This information is not intended as a substitute for professional medical care. Always follow your healthcare professional's instructions. Continuous Positive Airway Pressure (CPAP) Your healthcare provider has prescribed continuous positive airway pressure (CPAP) therapy for you. A CPAPdevice helps you breathe better at night. The device sends air through your nose or mouth when you breathe in to keep your air passages open. CPAP is: Used most often to treat sleep apnea and some other problems. (Sleep apnea is a chronic condition with periods of sleep in which you briefly stop breathing.) Safe and very effective. But it takes time to get used to the mask. Your healthcare provider, nurse, or medical supplier will give you tips for wearing and car ing for your CPAP device. General guidelines Recommendations include the following: It's very important not togive up! It takes time to get used to wearing the mask at [facility]. Practice using your CPAP device during the day, especially whenever you take a nap. Remember, there are several different types of masks. If you can t get used to your ma sk, ask your provider or medical supply company about trying another style. If you have nasal stuffiness or dryness when using your CPAP device, talk with your prov ider or medical supply company. There are ways to ease these problems. For example, your pro vider may recommend using a moistening nasal spray. Or the medical supply company may recomm end a device with a humidifier. The goal is to use yourCPAP all night, every night, during all naps, and even when you travel. Keep your mask clean. Wash it with soap and water. Be sure to rinse the mask and tubing well with water to remove any soap. Let them air-dry completely before using. Make yourself comfortable when sleeping with CPAP. Try using extra pillows. Work with your medical supply company so that you know how to correctly use your CPAP. The company's retail wireless sales representative will be able to help you: Use the CPAP correctly Troubleshoot any problems that come up Learn to clean and maintain the device Adjust to regular use of the CPAP The CPAP device settings are given as centimeters of water, or cm/H2O. Each person s pres sure settings are different. Your healthcare provider will tell you what settings to use. Ne kasi change your CPAP pressure setting unless your provider tells you to. CPAP cm/H20 pressure when you breathe in Date Last Reviewed: 12/15/201519999030-5752 [employer]. [address] [place] [address], [place] [address]. All righ ts reserved. This information is not intended as a substitute for professional medical care. Always follow your healthcare professional's instructions. documented in this encounter Progress Notes Festus Dawn Jr., MD - 06/24/2017 8:15 AM PSTThe patient comes in for follow-up after undergoing polysomnographically guided positive airway pressure titration. My interpretation of the patient's sleep study, which I have reviewed with the patient, is as follows: Positive Airway Pressure Titration Report on Poppy Bah performed on June 18 7. Clinical Information: Poppy Bah is a 77 y.o. female who underwent polysomnographic ally guided PAP on June 18, 2017. Diagnostic nocturnal polysomnography performed on 2016 demonstrated an Apnea Hypopnea Index index was elevated at 18.9 with associated severe oxygen desaturation (lorelei oxygen saturation 60%, 196.7 minutes with an oxygen satur ation of less than 88%). Periodic limb movements of sleep were seen but they did not signif icantly fragment sleep. Technical Information: Please see technical data which is attached. Definitions (The AASM Manual for the Scoring [...] breaths does not meet criteria for an test skein winder ea or hypopnea. Sleep Architecture: Lights out was recorded at 2148 hundred hours on June 18, 2017 and lights on was recorded at 0642 hundred hours on June 19, 2017. The latency to sleep onset was normal at 7.5 minutes. The patient slept for 373 minutes out of 534 minutes of study t bandar resulting an a sleep efficiency that was low at 69.9 %. The amount of N1 sleep was eleva jordyn at 13.5 % of the Total Sleep Time; the amount of N2 sleep was normal at 63.3 % of the To ariadna Sleep Time; the amount of N3 sleep was low normal at 5.2 % of the Total Sleep Time; the amount of REM sleep was normal at 18 % of the Total Sleep Time and the latency to REM sleep was normal at 101.5 minutes. The sleep efficiency has declined in comparison to the [facility] study. Sleep was recorded in the following positions: Because of shoulder discomfort the patient s lept in a recliner for the entire evening Sleep was minimally fragmented; the Arousal Index was 17.5. The patient reported this to be better than a "usual" night's sleep. Cardiopulmonary Monitoring: The heart rate averaged 60s beats per minute. Mild rate variab ility was noted. The rhythm was premature ventricular contractions were noted intermittently throughout the evening.. The patient started the evening on CPAP of 5 cm and was titrated to CPAP of 10 cm. Obstruc tive apnea was well controlled at CPAP of 8 cm and higher however hypoxemia was noted. For this reason the night technologist switch to bilevel positive airway pressure which did not result in improvement in oxygen saturation. The patient was then switched back to CPAP ther apy if oxygen bled into the circuit tree. The patient was then titrated to CPAP of 8 cm wit h 2 L of oxygen bled into the circuit tree which resulted in an Apnea Hypopnea Index index o f 0.52 with a lorelei oxygen saturation of 87%. REM sleep was noted at this pressure. Limb Movement Monitoring: There were 133 Periodic Limb Movements (PLMS Index 21.4) of which 17 were associated with arousals; the PLMS Arousal Index was normal at 2.7. Interpretation: This is a satisfactory CPAP titration study. CPAP of 8 cm with oxygen 2 L/m satisfactorily controls obstructive sleep apnea and noctur nal oxygen desaturation. Periodic limb movements of sleep are present but they do not seem to fragment sleep. Suggestions: 1) The principles of Sleep Hygiene should be reviewed with the patient. 2) CPAP of 8 cm with oxygen 2 L a minute is advised. 3) A ferritin level should be checked. If the ferritin level is less than 75ug/ml, iron sup plementation should be considered to raise the ferritin to above 75ug/ml. This may help with PLMS. Once the ferritin level is above 75ug/ml, pharmacologic therapy of PLMS/RLS should be considered if they are felt to be clinically significant. BP 148/74 | Pulse 65 | Resp 14 | Wt 124.8 kg (275 lb 2.2 oz) | SpO2 94% | BMI 47.23 kg /m A: LEONARDO: I once again briefly the pathophysiology of obstructive sleep apnea with her. I've discussed the mechanism spike which CPAP is effective in treating obstructive sleep apnea. I've discussed the fact that she will need oxygen bled into her CPAP also. I'm going to [place] donnie recent her home and started titrating CPAP 6-12 cm other than fixed CPAP at 8 cm becau se I think it's likely to be more effective and probably more comfortable. Oxygen 2 L a min flip will be brought into the circuit tree. We will follow her closely through our CPAP adhe rence clinic. PLMS: The patient states that she rarely has symptoms of restlessness in her legs. Wo uld like to have this clinically reevaluated after she has been on CPAP for a month or two. P: Resmed AirSense 10 autoset CPAP 6-12cm with oxygen 2 l/minute is prescribed. F/u 2 days after getting CPAP with our Clinical Sleep Educator and our PAP Adherence Clinic . Today, 25 minutes was spent face to face with the patient; the majority of time was spent c javiereling regarding the use of CPAP and oxygen. documented in th is encounter Plan of Treatment +--------+---------+ + + + | Date | Type | Specialty | Care Team | Description | +--------+---------+ + + + | 07/15/ | Office | Sleep Medicine | Apollo Villa PA | | | 2020 | Visit | | [address] | | | | | | [place] | | | | | | [address] | | | | | | | | +--------+---------+ + + + documented as of this encounter Visit Diagnoses + + | Diagnosis | + + | LEONARDO (obstructive sleep apnea) - Primary Obstructive sleep apnea (adult) (pediatric) | + + documented in this encounter
--- OUTSIDE RECORDS SUMMARY | ~2019-12-14 | XMS | Encounter Summary ---
Demographics + + + | Address | [address] | | | [place] [address] | + + + | Home Phone | | + + + | Preferred Language | Unknown | + + + | Marital Status | | + + + | Caodaism Affiliation | 1077 | + + + | Race | Unknown | + + + | Ethnic Group | Unknown | + + + Author + + + | Author | [facility] | | | and [place] | + + + | Organization | [facility] | | | [...] Team Providers + +------+ + | Care Paper Guillotine Operator Name | Role | Phone | + +------+ + | Karen Alvarado MD | PCP | | + +------+ + Reason for Visit + + + | Reason | Comments | + + + | Results, Pathology | | + + + Encounter Details +--------+ + + + + | Date | Type | Department | Care Team | Description | +--------+ + + + + | 10/10/ | Telephone | [facility] | Mellisa Castillo | Results, Pathology | | 2019 | | GROUP GYNECOLOGIC | MD Asha [address] | | | | | ONCOLOGY [address] | [address] | | | | | [address] | [place] [address] | | | | | [place] | [phone] | | | | | [address] | | | | | | [phone] | | | +--------+ + + + [...] [place] | | | | | | [address] | | | | | | | | +--------+---------+ + + + documented as of this encounter Visit Diagnoses Not on filedocumented in this encounter"
--- OUTSIDE RECORDS SUMMARY | ~2019-12-14 | XMS | Encounter Summary ---
Demographics + + + | Address | [address] | | | [place] [address] | + + + | Home Phone | | + + + | Preferred Language | Unknown | + + + | Marital Status | | + + + | Tenriism Affiliation | 1077 | + + + | Race | Unknown | + + + | Ethnic Group | Unknown | + + + Author + + + | Author | [facility] | | | and [place] | + + + | Organization | [facility] | | | [...] Team Providers + +------+ + | Care Gripper Attacher Name | Role | Phone | + [...] Description | +--------+---------+ + + + | 11/01/ | Office | [facility] | Apollo Villa PA | LEONARDO on CPAP (Primary | | 2018 | Visit | SLEEP DISORDER [address] | [address] | Dx) | | | | [address] [place] | [place] | | | | | [place] [address] | [phone] | | | | | [phone] | | | +--------+---------+ + + + [...] + + + | Blood Pressure | 140/78 | 11/01/2017 10:05 AM | | | | | PDT | | + + + + + | Pulse | 65 | 11/01/2017 10:05 AM | | | | | PDT | | + + + + + | Temperature | - | - | | + + + + + | Respiratory Rate | 16 | 11/01/2017 10:05 AM | | | | | PDT | | + + + + + | Oxygen Saturation | 93% | 11/01/2017 10:05 AM | | | | | PDT | | + + + + + | Inhaled Oxygen | - | - | | | Concentration | | | | + + + + + | Weight | 126.1 kg (278 lb) | 11/01/2017 10:05 AM | | | | | PDT | | + + + + + | Height | - | - | | + + + + + | Body Mass Index | 44.87 | 07/06/2017 9:24 AM | | | | | PST | | + + + + + documented in this encounter Progress Notes Apollo Villa PA - 11/01/2017 10:00 AM PDT Subjective: Patient ID: Poppy Bah is a 77 y.o. female. HPI last office visit: 08/02/2017 date of polysomnography: 06/06/2017 AHI: 22.6 (44.5 in REM) RDI: 22.6 O2%: 60% with 196.7 minutes below 88% Machine type: ResMed AirSense 10 Mask type: Respironics AmaraView full face mask DME: [facility] in [place] pressure: 6-12 cm with oxygen at 2 L/min Median: 7.0 cm 95%: 8.2 cm maximum: 8.7 cm Nights using CPAP: 91/91 % of nights >4 hours: 100% average usage (all nights): 8:09 average usage (nights used): 8:09 AHI: 0.5 Poppy comes in for CPAP compliance. She is doing well with her CPAP and oxygen, wearing it nightly for the duration of her sleep. She doesn't enjoy using CPAP, but understands the i mportance of treating her apnea and oxygen desaturation. She does not consider sleeping wit hout it. She is committed to treating her apnea with CPAP. She has not replaced any of her equipment. She says her full face mask has started to leak a little more than it was when it was new. We discussed when she is able to replace her equipment. We also discussed the recommended cleaning schedule for her equipment. I have discussed the download in detail. This shows that her sleep apnea is controlled, wi th an AHI of 0.5. It also shows that her leaks are controlled. Review of Systems Objective: BP 140/78 | Pulse 65 | Resp 16 | Wt 126.1 kg (278 lb) | SpO2 93% | BMI 44.87 kg/m Physical Exam Assessment: Problem #1: OBSTRUCTIVE SLEEP APNEA ([id number]) This is controlled with CPAP. She is doing well with her CPAP usage. She has noticed that her mask is starting to leak more during the night. Plan: 1. She is to continue with CPAP indefinitely. 2. She is to replace her cushion to her full face mask and any other necessary equipment. 3. Touch base with medical supplier twice per year to ensure that all equipment is satisfa ctory. I will follow up again in 1 year, sooner prn. At that time we will reassess with all appro priate paperwork. Fifteen minutes were spent [id number], with the majority of time spent in counseling. Apollo Villa PA-C cc: Karen Alvarado MD documented in this enco unter Plan of Treatment +--------+---------+ + + + | Date | Type | Specialty | Care Team | Description | +--------+---------+ + + + | 07/15/ | Office | Sleep Medicine | Apollo Villa PA | | | 2019 | Visit | | [address] | | | | | | [place] | | | | | | [address] | | | | | | | | +--------+---------+ + + + documented as of this encounter Visit Diagnoses + + | Diagnosis | + + | LEONARDO on CPAP - Primary Obstructive sleep apnea (adult) (pediatric) | + + documented in this encounter"
--- OUTSIDE RECORDS SUMMARY | ~2019-12-14 | XMS | Encounter Summary ---
Demographics + + + | Address | [address] | | | [place] [address] | + + + | Home Phone | | + + + | Preferred Language | Unknown | + + + | Marital Status | | + + + | Confucianism Affiliation | 1077 | + + + | Race | Unknown | + + + | Ethnic Group | Unknown | + + + Author + + + | Author | [facility] | | | and [place] | + + + | Organization | [facility] | | | [...] Team Providers + +------+ + | Care Technical Consultant Name | Role | Phone | + +------+ + | Karen Alvarado MD | PCP | | + +------+ + Reason for Visit +--------+ + | Reason | Comments | +--------+ + | Other | | +--------+ + Encounter Details +--------+ + + + + | Date | Type | Department | Care Team | Description | +--------+ + + + + | 10/29/ | Telephone | [facility] | Izabellaberny Nidia W, | Other | | 2019 | | GROUP GYNECOLOGIC | RN | | | | | ONCOLOGY [address] | | | | | | [address] | | | | | | [place] | | | | | | [address] | | | | | | [phone] | | | +--------+ + + + [...] 2020 | Visit | | [address] | | | | | | [place] | | | | | | [id number] | | | | | | | | +--------+---------+ + + + documented as of this encounter Visit Diagnoses Not on filedocumented in this encounter"
--- OUTSIDE RECORDS SUMMARY | ~2019-12-14 | XMS | Encounter Summary ---
Demographics + + + | Address | [address] | | | [place] [address] | + + + | Home Phone | | + + + | Preferred Language | Unknown | + + + | Marital Status | | + + + | Orthodox Affiliation | 1077 | + + + [...] Team Providers + +------+ + | Care Research Computing Specialist Name | Role | Phone | [...] Medicine | LEONARDO | Festus Traore | [place] [address] | | | Required | | (obstructive | [address] | [place] | | | | | sleep | [place] | [place], | | | | | apnea) | [address] [place] | [place] [address] | | | | | Procedures | [facility], [place] | Phone: | | | | | MD POLYSOM | [phone] | [phone] | | | | | 6/>YRS SLEEP | Phone: | Fax: | | | | | W/CPAP 4/> | [phone] | [phone] | | | | | ADDL EDWIGE | Fax: | | | | | | ATTND S/N | [phone] | | +--------+ + + + + + Reason for Visit +---------+ + | Reason | Comments | +---------+ + | Consult | | +---------+ + | Snoring | | +---------+ + Evaluate & Treat (Routine) +--------+--------+ + + + + | Status | Reason | Specialty | Diagnoses / | Referred By | Referred To | | | | | Procedures | Contact | Contact | +--------+--------+ + + + + | Closed | | Internal | Diagnoses | Wufransisco, | López, | | | | Medicine - | Obstructive | Karen Coates MD | Festus Traore | | | | Sleep | sleep apnea | [address] | [address] | | | | Medicine / | (adult) | [facility] | [facility] | | | | Sleep | (pediatric) | [place], [place] | [facility] | | | | Medicine | [address] | [address] | [place], [place] | | | | | [address] | Phone: | [phone] Phone: | | | | | Procedures | [phone] | [phone] | | | | | NEW PATIENT | Fax: | Fax: | | | | | | [phone] | [phone] | +--------+--------+ + + + + Encounter Details +--------+---------+ + + + | Date | Type | Department | Care Team | Description | +--------+---------+ + + + | 05/04/ | Office | [facility] | Festus Dawn | LEONARDO (obstructive | | 2017 | Visit | SLEEP DISORDER [address] | [address] | sleep apnea) | | | | [address] [place] | [address] [place] [address] [place] | (Primary Dx); | | | | [place] [address] | [place] [address] | Snoring; | | | | [phone] | [phone] | Hypothyroidism, | | | | | | unspecified type | +--------+---------+ + + + Social History [...] + + + | Blood Pressure | 154/82 | 05/04/2017 8:36 AM | | | | | PDT | | + + + + + | Pulse | 64 | 05/04/2017 8:36 AM | | | | | PDT | | + + + + + | Temperature | - | - | | + + + + + | Respiratory Rate | 14 | 05/04/2017 8:36 AM | | | | | PDT | | + + + + + | Oxygen Saturation | 93% | 05/04/2017 8:36 AM | | | | | PDT | | + + + + + | Inhaled Oxygen | - | - | | | Concentration | | | | + + + + + | Weight | 125.8 kg (277 lb 6.4 | 05/04/2017 8:36 AM | | | | oz) | PDT | | + + + + + | Height | 162.6 cm (5' 4") | 05/04/2017 8:36 AM | | | | | PDT | | + + + + + | Body Mass Index | 47.62 | 05/04/2017 8:36 AM | | | | | PDT | | + + + + + documented in this encounter Patient Instructions Patient Instructions Festus Dawn Jr., MD - 05/04/2017 9:25 AM PDTFormatting of this n ote might be different from the original. What Are Snoring and Obstructive Sleep Apnea? If you ve ever had a stuffed-up nose, you know the feeling of trying to breathe through a very narrow passageway. This is what happens in your throat when you snore. While you sleep , structures in your throat partially block your air passage, making the passage narrow and hard to breathe through. If the entire passage becomes blocked and you can t breathe at al l, you have sleep apnea. Snoring Obstructive sleep apnea Snoring If your throat structures are too large or the muscles relax too much during sleep, the air passage may be partially blocked. As air from the nose or mouth passes around this blockage , the throat structures vibrate, causing the familiar sound of snoring. At times, this sound can be so loud that snorers wake up others, or even themselves, during the night. Snoring g ets worse as more and more of the air passage is blocked. Obstructive sleep apnea If the structures completely block the throat, air can t flow to the lungs at all. This i s called apnea (meaning no breathing ). Since the lungs aren t getting fresh air, the brain tells the body to wake up just enough to tighten the muscles and unblock the air pass age. With a loud gasp, breathing begins again. This process may be repeated over and over ag ain throughout the night, making your sleep fragmentedwith a head shipper stage of sleep. Even though you do not remember waking up many times during the night to a head shipper sleep, you fee l tired the next day. The lack of sleep and fresh air can also strain your lungs, heart, and other organs, leading to problems such as high blood pressure, heart attack, or stroke. Problems in the nose and jaw Problems in the structure of the nose may obstruct breathing. A crooked (deviated) septum o r swollen turbinates can make snoring worse or lead to apnea. Also, a receding jaw may make the tongue sit too far back, so it s more likely to block the airway when you re asleep. Date Last Reviewed: 03/02/201519990853-5180 [employer]. [address] [place] [address], [place] [address]. All righ ts reserved. This information is not intended as a substitute for professional medical care. Always follow your healthcare professional's instructions. Mouthpieces for Sleep Apnea For simple snoring or mild to moderate apnea, a special mouthpiece may help. A dental speci alist works with your healthcare providerto build and fit a mouthpiece just for you. A fol low-up sleep study checks how well the device is working for you. Mouthpieces are also orourke d oral appliances. Moving the jaw and tongue forward with a mouthpiece can open the airway to reduce sleep automatic engraver ea. Moving the jaw forward Most mouthpieces move the jaw and tongue forward. That keeps the tongue from blocking the a irway. Mouthpieces can work well, but they are not for everyone. Work with your healthcare p raffy to get a mouthpiece that fits just right for you. Oral appliances are usually custom made for you by a dental professional. And, avoid [id number] mouthpieces they oft en do not work. Tips To have the most success with your mouthpiece, keep these tips in mind: It will take some time to get used to wearing a mouthpiece. At first it may feel uncomfo rtable or make your mouth water. If these problems last, tell your healthcare provider. Expect several rounds of adjustments to get the mouthpiece to fit and work just right fo r you. Mouthpieces don t cure the problems that cause snoring or sleep apnea. So you need to use your mouthpiece all night, every night. Follow your healthcare provider s instructions for keeping the mouthpiece clean. When you re not wearing your mouthpiece, store it in its case. Date Last Reviewed: 03/24/201519997327-1016 [employer]. [address] [place] [address]. All righ ts reserved. This information is not intended as a substitute for professional medical care. Always follow your healthcare professional's instructions. documented in this encounter Progress Notes Festus Dawn Jr., MD - 05/04/2017 8:30 AM PDTFormatting of this note might be differen t from the original. [facility] [place] [address] Ref: Karen Alvarado MD CC: Chief Complaint Patient presents with Consult Snoring History of the Present Illness:This is a 77 year old female who is referred for sleep medic ine consultation by Dr. Gray Alvarado because of possible sleep apnea. Other significant medical issues include Obesity, hypothyroidism, leg edema, DJD. The patient's records (Dr. Ilsa basurto [facility]) are reviewed. The patient is interviewed and examined. The patient has recently been seen in cardiology consultation by Dr. Rosenbaum because of le g edema. Ejection fraction on echocardiography performed February 03, 2017 with 70-75%. The hiral james was felt to have leg edema secondary to either sleep apnea or venous insufficiency. Bedtime is about MN and rise time is about 8am. She estimates a latency of less than 20 min utes. She has nocturia 1-2 at night and usually she gets back to sleep easily. She sometimes has some difficulty getting back to sleep and on those nights she stays in bed with lights out and eventually gets back to sleep. This is more likely to occur if she awakens near rise time. She denies night sweats. She can get heartburn in the daytime but not after she falls asleep. She often awakens with a dry mouth and nasal/sinus congestion but she denies mornin g headaches. She dreams in her sleep regularly. She denies hypnagogic hallucinations. She isn't a sleep walker. She denies physically acting out dreams while asleep. She denies sleep paralysis. She rarely has restlessness in her legs at night. Her has never told that her legs kick/twitch at night. She snores at night. She has been told that she snores at night regularly. No one has ever told her that she stops breathing during her sleep. She doesn't awaken herself gasping for a ir. She sleeps in a recliner and night in bed because of shoulder pain when she slept in bed . She would never sleep supine - she doesn't know why; she used to only sleep on her left si de which then caused her left shoulder to hurt. In the daytime she feels tired. She rarely naps unless her grandson sleeps on her lap when she might fall asleep. She doesn't fall asleep driving. She has never had a near miss car ac cident because of drowsiness. She denies cataplexy. She has caffeine infrequently. Over the last 3 years she has noted weight gain, progressive fatigue, and ankle edema; at t his time she was found to have hypothyroidism and thyroid medications were started. The thyr oid apparently is at proper dose (we don't have this year's labs from the [facility] and Dr. Alvarado) . Past Medical History: has a past medical history of Bilateral leg edema; Diverticulitis; D ROGE (degenerative joint disease); History of rheumatic fever; Hypothyroidism; Obesity; and Sn oring. has a past surgical history that includes Knee Arthroplasty (Left, 2011); Knee Arthroplast y (Right, 2009); and Cataract Removal (Bilateral, 2014). Allergies Allergen Reactions Hydrochlorothiazide Current Outpatient Prescriptions Medication Sig Dispense Refill aspirin 81 mg EC tablet Take 81 mg by mouth Daily. atenolol (TENORMIN) 50 mg tablet Take 25 mg by mouth Daily. Calcium Carbonate-Vitamin D (CALCIUM-D PO) Take by mouth. furosemide (LASIX) 40 mg tablet Take 40 mg by mouth 2 times daily. levothyroxine (SYNTHROID) 150 mcg tablet Take 150 mcg by mouth every morning (before br eakfast). potassium chloride (K-DUR) 20 mEq ER tablet Take 20 mEq by mouth Daily. risedronate (ACTONEL) 150 MG tablet Take 150 mg by mouth Every 30 days. sulfaSALAzine (AZULFIDINE) 500 mg tablet Take 500 mg by mouth 2 times daily. No current facility-administered medications for this visit. Past Surgical History: Procedure Laterality Date CATARACT REMOVAL Bilateral 2015 KNEE ARTHROPLASTY Left 2012 KNEE ARTHROPLASTY Right 2010 Family Medical History: family history includes Diabetes in her son; Heart disease in her f ather and sister. indicated that her mother is . She indicated that her father is . She indic ated that two of her three sisters are alive. She indicated that her brother is alive. She i ndicated that all of her three daughters are alive. She indicated that her son is alive. Social History: Social History Social History Marital status: Spouse name: N/A Number of children: N/A Years of education: N/A Social History Main Topics Smoking status: Never Smoker Smokeless tobacco: Never Used Alcohol use Yes Comment: Very, very rare (once a year) Drug use: No Sexual activity: Not Currently Other Topics Concern None Social History Narrative None Review of Systems: Constitutional: Denies unexplained fevers, chills, sweats. Weight gain 50 pounds over las t 3 years. Eyes:Denies sudden loss of vision, diplopia, blurred vision. ENT: Denies loss of hearing, vertigo, nasal or sinus congestion, bleeding gums or poor de ntal repair. Card:Denies exertional substernal chest heaviness. Mild bilateral ankle edema. Resp: Denies cough, wheezing, asthma, hemoptysis GI: Denies nausea, vomiting, abdominal pain, diarrhea, constipation, hematochezia. : Denies dysuria, pyuria, hematuria, frequency, incontinence MS: Some diffuse arthralgias. Neuro: Denies seizures, strokes, loss of consciousness, syncope, concussions. Psych: Denies: depression, anxiety, panic, past history physical or sexual abuse, severe traumatic experiences Endocrine: Denies heat or cold intolerance Heme: Denies easy bruising or prolonged bleeding. No history of transfusions Allergic/Immunologic: Mild seasonal allergies PE: BP 154/82 | Pulse 64 | Resp 14 | Ht 1.626 m (5' 4") | Wt 125.8 kg (277 lb 6.4 oz) | SpO2 93% | BMI 47.62 kg/m Gen: obese and not in acute distress HEENT:Head: Normocephalic, no lesions, without obvious abnormality. Eye: Normal external eye, conjunctiva, lids cornea, HADLEY. Nose: Normal external nose, mucus membranes and septum. Pharynx: Dental Hygiene adequate. Normal buccal mucosa. Mallampati 3. Neck / Thyroid: Supple, no masses, nodes, nodules or enlargement. Pulm: lungs clear to auscultation Card: regular rate and rhythm, S1, S2 normal, no murmur, click, rub or gallop GI: soft and normal bowel sounds : Not examined Rectal: Not Examined Ext: peripheral pulses normal, no pedal edema, no clubbing or cyanosis. - Puffiness of ank les noted but no pitting edema Skin:no rashes Neuro:Grossly normal Psych:age appropriate and casually dressedoriented to time, place and person, mood and aff ect are within normal limits, pt is a good historian; no memory problems were noted Heme: No cervical LN Questionnaires Review: The score of 4 on the [place] Sleepiness scale suggests an minimal e xcessive daytime sleepiness. The score of 15 on the Insomnia Severity Scale suggests that th e patient has difficult dissatisfaction with the quality of sleep. The score of 6 on the Bec k Depression Inventory is consistent with minimal depression. The score of 1 on the Griggs Anx iety Inventory suggests an animal recognized anxiety. The SF36v2 suggests severe self assess ed impairment in subscales physical function, role physical, role emotional; moderate self a ssessed impairment in subscales vitality, social function; mild self assessed impairment in subscale general health; in significant self assessed impairment in subscales body pain and mental health. She scores approximately 1 standard deviation below the mean on the physical component scale. She scores approximately 1 standard deviation below the mean on the menta l component scale.. Assessment: LEONARDO: I suspect that the patient does have obstructive sleep apnea. She is know n to snore. She is obese. She has a very shallow narrow posterior oropharynx. She used to sleep prone and also the left lateral decubitus position exclusively. Because of shoulder pain she now sleeps in a recliner. She has never really slept supine. I suspect that she h as been self treating obstructive sleep apnea with positional therapy. I have discussed in lety funk the pathophysiology of Obstructive Sleep Apnea with the patient. I've discussed that d uring NREM sleep the skeletal muscles relax and in REM sleep the skeletal muscles are paraly zed. The muscles that support the back of the throat (the tongue in particular) also relax d uring NREM sleep and are paralyzed in REM sleep and when this occurs, the back of the throat collapses some. In some patients with a smaller back of the throat, this can result in obst ruction to the flow of air. This is fundamentally what occurs in LEONARDO. This can cause repetit yajaira obstruction to the flow of air all night long cause a person with LEONARDO to awaken repeated ly at night to "open" the back of the throat. If airflow is significantly restricted, blood oxygen levels can fall. The combination of the repetitive awakenings at night and low oxygen levels lead to numerous other physiologic abnormalities which can result in nocturia, noctu rnal heartburn, night sweats, morning dry mouth, morning headache, and daytime fatigue/sleep iness. Additionally, LEONARDO can cause hypertension and it dramatically increases the risk of he art disease, heart attack, and stroke. It may play a causative role in obesity and AODM. Unt reated LEONARDO also dramatically increases the risk of fall asleep car accidents. Treatment can help with all of these issues.The various forms of treatment of LEONARDO were discussed with the patient including 1) Conservative therapy which typically includes weight loss, avoidance of sleep deprivation, avoidance of alcohol, avoidance of sedative medications, avoidance of sm oking, and positional therapy (non-supine sleeping); 2) Positive Airway Pressure therapy (wh ich is effective in the vast majority of patients but compliance can be an issue); 3) Dental Appliance Therapy (which is effective for some patients, typically with mild LEONARDO, but compl iance is typically good); 4) Expiratory Positive Airway Pressure - which involves passively increasing EPAP pressures applying a "one-way" valve type device (that looks like a "bandaid ") over the nares at night which can be effective for very mild LEONARDO; 5) Surgical interventio n - including Phase I surgery (which typically involves T&A, UPPP, Genioglossus Advancement, Hyoid Suspension) and Phase II surgery (Bimandibular-Maxillary Facial Advancement) - the lyons rgical solution to LEONARDO is complicated and typically involves several operations; and 6) Hypo glossal Nerve Stimulation Therapy. I discussed polysomnography with her also. I am advisin cipriano that we bring her into the sleep center for overnight polysomnography using a split-night protocol with follow-up in the near future. Hypothyroidism: Hypothyroidism can also cause many of the symptoms she is having. Hypoth yroidism can also make obstructive apnea worse. He believes however that her thyroid issues have resolved with thyroid medication. Unfortunately I do not have the results of her most recent thyroid function test. She is under the impression that they were normal. Obesity: I have discussed the bidirectional relationship between obesity and obstructive sleep apnea with her also. Plan: Diagnostic nocturnal polysomnography using a split-night technique has been scheduled for the near future with follow-up thereafter. Patient Active Problem List Diagnosis EDEMA MITRAL VALVE DISORDERS TRICUSPID VALVE DISORDERS SPEC NONRHEUMATIC DJD (degenerative joint disease) Obesity Hypothyroidism Bilateral leg edema History of rheumatic fever Snoring Diverticulitis Today, 60 minutes was spent face to face with the patient; the majority of time was spent c ounseling regarding sleep issues. ANDEZSimon, Festus Traore Jr., MD - 05/04/2017 8:30 AM PDTFormatting of this note might be different from the origin al. 05/04/17 0800 Griggs Depression Inventory-II Depression Score 6 - Minimal depression Insomnia Severity Index Insomnia Severity Index 15 [place] Sleepiness Scale Sitting and reading 1 Watching TV 1 Sitting, inactive in a public place (e.g. a theatre or a meeting) 0 As a passenger in a car for an hour without a break 0 Lying down to rest in the afternoon when circumstances permit 1 Sitting and talking to someone 0 Sitting quietly after a lunch without alcohol 1 In a car, while stopped for a few minutes in traffic 0 Total score 4 SF-36v2 Score PF 30.75 RP 21.23 BP 62 GH 46.05 VT 37.74 SF 32.27 RE 14.39 MH 58.72 PCS 39.25 MCS 38 documented in th is encounter Plan of [...] CERVANTES | | | | | | [id number] | | | | | | | | +--------+---------+ + + + + + +--------+ + + | Name | Type | Priori | Associated Diagnoses | Order Schedule | | | | ty | | | + + +--------+ + + | * [facility] - | Outpatient | Routin | LEONARDO (obstructive | Ordered: 05/04/2017 | | AMB Referral | Referral | e | sleep apnea) | | + + +--------+ + + documented as of this encounter Visit Diagnoses + + | Diagnosis | + + | LEONARDO (obstructive sleep apnea) - Primary Obstructive sleep apnea (adult) (pediatric) | + + | Snoring Other dyspnea and respiratory abnormality | + + | Hypothyroidism, unspecified type | + + documented in this encounter
--- OUTSIDE RECORDS SUMMARY | ~2019-12-14 | XMS | Encounter Summary ---
Demographics + + + | Address | [address] | | | [place] [address] | + + + | Home Phone | | + + + | Preferred Language | Unknown | + + + | Marital Status | | + + + | Yarsanism Affiliation | [id number] | + + + | Race | Unknown | + + + | Ethnic Group | Unknown | + + + Author + + + | Author | [facility] | | | and [place] | + + + | Organization | [facility] | | | and [...] Team Providers + +------+ + | Care Fluid Dynamicist Name | Role | Phone | + +------+ + | Karen Alvarado MD | PCP | | + +------+ + Reason for Visit +---------+ + | Reason | Comments | +---------+ + | Consult | H&P | +---------+ + Evaluate & Treat (Routine) + +--------+ + + + + | Status | Reason | Specialty | Diagnoses / | Referred By | Referred To | | | | | Procedures | Contact | Contact | + +--------+ + + + + | Authorizatio | | Gynecologic | Diagnoses | Luana, | Jonathan, | | n not | | Oncology | Endometrial | Shelbie DO | Mellisa Barry, | | Required | | | | [address] | 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[place] | [address] | | | | | ial | [place] | [address] | | | | | neoplasia | [address] | [place] | | | | | (EIN) Other | Phone: | [phone] Phone: | | | | | specified | [phone] | [phone] | | | | | postprocedur | | Fax: | | | | | al states | | [phone] | | | | | Procedures | | | | | | | PRINCIPAL ASSOCIATE referral | | | | | | [...] Description | +--------+---------+ + + + | 08/29/ | Office | [facility] | Mellisa Castillo | Endometrial | | 2020 | Visit | [facility] | MD Asha [address] | hyperplasia with | | | | ONCOLOGY [address] | [address] | atypia (Primary Dx); | | | | [address] | [place] [address] | Essential (primary) | | | | [place], [place] | [phone] | hypertension | | | | [address] | | | | | | [phone] | | | +--------+---------+ + + + [...] + + + | Blood Pressure | 131/62 | 08/29/2019 11:40 AM | | | | | PST | | + + + + + | Pulse | 61 | 08/29/2019 11:40 AM | | | | | PST | | + + + + + | Temperature | 36.5 C (97.7 F) | 08/29/2019 11:40 AM | | | | | PST | | + + + + + | Respiratory Rate | 16 | 08/29/2019 11:40 AM | | | | | PST | | + + + + + | Oxygen Saturation | 98% | 08/29/2019 11:40 AM | | | | | PST | | + + + + + | Inhaled Oxygen | - | - | | | Concentration | | | | + + + + + | Weight | 122 kg (269 lb) | 08/29/2019 11:40 AM | | | | | PST | | + + + + + | Height | 161.3 cm (5' 3.5") | 08/29/2019 11:40 AM | | | | | PST | | + + + + + | Body Mass Index | 46.9 | 08/29/2019 11:40 AM | | | | | PST | | + + + + + documented in this encounter Patient Instructions Patient Instructions Pinky Alvarez - 08/29/2019 11:00 AM PSTFormatting of this note mi ght be different from the original. PRE-OPERATIVE INSTRUCTIONS Patient: Poppy Bah Date of : 1940 Surgery: Robotic Hyst - W/ BSO - [facility] MAIN OR- [address] Surgery Date: 10/09/2019 Time: 7:30AM Check in Time: 5:30AM Post-Op Appointment Date: 10/31/2019 Time: 11:00AM EKG/LAB WORK WILL BE DONE AT [facility] IN [place] THE WEEK OF 09/18/2019. NO APPT IS NE EDED. WALK IN TO OUT PATIENT ADMITTING. PLEASE TAKE YOUR ORDERS WITH YOU FOR THIS. NO BOWEL PREP IS NEEDED. We have you scheduled your surgery with Dr. Castillo You will need a post-op appointment with your doctor or mid level provider. If you have an y questions or concerns that should arise between these appointments, be sure to call our jose carlos dubon at , so that we may assist you today.Ask for either Pinky (Surgery Sched uler) or Yumiko/Nidia (Nurses.) Prior to surgery you will need blood work done. For this you will need to go to the [facility] laboratory at the [facility] located on the main floor. Your doctor may also order other tests to be run before your surgery such as a EKG and/or chest x-ray. In addition, you may need an evaluation by your primary care physician depending on your age and medical history. Pre-Operative Instructions: No food or dairy after midnight prior to surgery. You are okay to continue clear liq uids up until 2 hrs prior to the arrival time for surgery. If you were given a prescription for a bowel prep, be sure to follow instructions car chrisy. Call and speak with your nurse if you have any questions. Avoid alcohol & cigarettes for at least 24 hours prior to surgery. It is best to abilio id these for 1 week prior. Discontinue aspirin and ibuprofen products 7 days prior to surgery. This includes Mot rin, Gustavo, Advil, Naprosyn, Aleve, Celebrex, Mobic, Voltaren, etc). If you are taking a bl ood thinner such as Coumadin or Plavix, check with your PCP or prescribing doctor regarding when to discontinue. Please bring a list of your medications to your appointments. Your doctor will tell you which medications (if any) to take the morning of your surgery. Bring your medication list to the hospital with you. Stop taking all herbal medications until further advised by your surgical team. Inform your doctor of any allergies you may have to drugs, iodine, latex or surgical tape. Leave all jewelry and valuables at home. The morning of your surgery it is advised you bathe with antibacterial soap such as D ial or Zest. Makeup, nail vietnamese, and perfume are not recommended and should be removed prior to y our arrival at the hospital. Plan to have someone drive you to the hospital and drive you home. You will not be a ble to drive for at least 24 hours after anesthesia or anytime you are taking narcotic pain me dication. The physicians at [facility] utilize operating rooms in the [facility]. You may [place] the morning of surgery. Follow the signs for the [facility] off of [facility]. All surgical jose c ents should check in at the "Surgery/Procedure Check In" on the main floor the morning of eir surgery. Most patients will need to arrive 2 hours prior to their scheduled surgery. A pre-admit nurse will call you a few days before your surgery with specific instructions. Chelo pop call us if you any additional questions . Medications Prior to Surgery Prior to admission, we do recommend that patients take their usual morning dose of beta ele, beta ele combination antihypertensive drug, statin, cardiac, antihyper tensive, H2 ele, PPIs, pain, antiseizure and/or respiratory medications with a sip of wa ter. 1. Cardiac medications ? Yariel inhibitors, ARBs and diuretic medications should be held (stopped) the evening before and/or the morning of surgery unless specifically directed by your plastics sheet finishing press operator or medical doctor. All other cardiac medications should be taken as prescribed. Any morning dose shoul d taken with a sip of water. Examples of Yariel inhibitors include: Generic name Brand name Generic name of combination Brand name of combination capfopril Capoten captopril/HCTZ Capozide benazepril Lotensin benazepril/amlodipine Lotrel benazepril/HCTZ Lotensin HCT enalapril Vasotec enalapril/HCTZ Vaseretic enalapril/felodipine Lexxel lisinopril Prinivil, Zestril lisinopril/HCTZ Prinzide, Zestoretic fosinopril Monopril fosinopril/HCTZ Monopril HCTZ moexipril Univasc moexipril/HCTZ Uniretic trandolapril Mavik trandolapril/verapamil Tarka quinapril Accupril quinapril/HCTZ Accuretic, Quinaretic perindopril Aceon None None ramipril Altace None None Examples of ARBs include: Generic name Brand name Generic name of combination Brand name of combination losartan Cozaar Losartan/HCTZ Hyzaar irbesartan Avapro Irbesartan/HCTZ Avalide valsartan Diovan Valsartan/HCTZ Diovan HCT candesartan cilexetil Atacand Candesartan cilexetil/HCTZ Atacand HCT eprosartan Teveten eprosartan/HCTZ Teveten HCT telmisartan Micardis telmisartan/HCTZ Micardis HCT olmesartan Benicar olmesartan/HCTZ Benicar HCT olmesartan/amlodipine Ольга Examples of Diuretics include: Type Generic name Brand name Generic name of combination Brand name of combination Loop bumetanide Bumex ethacrynic acid Edecrin furosemide Lasix torsemide Demadex Thiazide chlorothiazide Diuril chlorthalidone None clonidine/chlorthalidone Clorpres hydrochlorothiazide Esidrix, Microzide aliskiren/HCTZ Tekturna HCT hydralazine/HCTZ Hydra-Zide spironolactone/HCTZ Aldactazide triamterene/HCTZ Dyazide, Maxzide aliskiren/amlodipine/HCTZ Amturnide indapamide Lozol methyclothiazide metolazone Zaroxolyn Potassium-sparing amloride Midamor amiloride/HCTZ [place], Moduret spironolactone Aldactone spironolactone/HCTZ Aldactazide triamterene Dyrenium triamterene/HCTZ Dyazide, Maxzide 2. Herbal supplementations Should not be taken for approximately 7 days prior to surgery, but optimally 14 days. Ta lk with your provider at your post operative appointment about when to restart these supplem ents. ? The following supplements have been shown to increased the risk for bleeding or alter the bodys' chemistry, thus resulting in the possibility of a blood transfusion, as well as incr easing the risk for unnecessary additional tests, labs and possible additional procedures. ? Echinacea ? Ephedra ? Fish oil ? Garlic ? Parris ? Ginkgo ? Ginseng ? Kava ? [place]-3 oils ? Saw palmetto ? Jessica's wort ? Tumeric ? Valerian root ? Vitamin E 3. Diabetics test your blood sugar on the morning of surgery ? Do not take oral diabetic medications on the morning of surgery. ? Stop prandial insulin the morning of surgery. These medications include Aspart, Lispro, Glulisine, Regular. ? If you take intermediate acting insulin such as NPH, take the full dose on the night prio r to surgery. o If your blood glucose is less than 150, do not take this on the morning of surgery. o If your blood glucose is greater than 150, take half dose on the morning of surgery. ? If you are on long acting insulin such as glargine or detemir, take the normal dose of lo ng-acting insulin unless you are prone to hypoglycemic episodes, then take half the normal d ose. ? If you have an insulin pump, maintain your current basal rate. 4. Pain medications, including chronic pain ? Continue taking medications such as gabapentin, MS Contin, Oxycontin, Methadone, or a Fen tanyl patch. ? If you are on Naltrexone, discuss this with the prescribing provider and anesthesiologist prior to surgery. ? Do not take aspirin, advil, NSAID or Aleve products 7 days prior to surgery. ? Use Tylenol or Acetaminophen products for pain relief, but do not exceed more than 3 gram s/day. 5. Oral Contraceptives/hormonal therapy ? Discuss with your surgeon as to if you should continue or quit taking oral contraceptives /hormones. If you were recommended to quit taking contraceptives, contact your prescribing provider for alternative methods of control as you will be at an increased risk for pr egnancy during this time. 6. Selective Estrogen receptor modulators ? These medications include tamoxifen and raloxifene. Quit taking these medications up to 4 weeks prior to surgery. 7. Antiplatelet/Anticoagulation therapy should be directed by your prescribing provider, us sola vera plastics sheet finishing press operator. ? If you are on bridge therapy, please hold all heparin or low molecular weight heparin pro ducts the morning of surgery. Examples include: Type Generic name Brand name Anticoagulation apixaban Eliquis argatroban Argatroban bivalirudin Angiomax dabigatran etexilate Pradaxa edoxaban Savaysa rivaroxaban Xarelto warafarin Coumadin, Jantoven Antiplatelet anagrelide Agrylin aspirin Anacin, Bufferin, Gustavo, Ecotrin cilostazol Pletal clopidogrel Plavix dipyridamole Persantine prasugrel Effient ticagrelor Brilinta vorapaxar Zontivity Heparin heparin None Low Molecular Weight Heparin daltaparin Fragmin enoxaparin Lovenox Other fondaparinux Arixtra 8. Depression, Anxiety, Antipsychotics ? Should be directed by your prescribing provider. Clear Liquid Diet WHAT YOU NEED TO KNOW: What is a clear liquid diet? A clear liquid diet is made up of clear liquids and foods that are liquid at room temperature. The clear liquid diet provides liquids, sugar, salt, and so me nutrients until you can eat solid food. The clear liquid diet does not provide all the nu trients, vitamins, minerals, or calories that your body needs. Healthcare providers will tel l you when you can start to eat regular foods. Why do I need to be on a clear liquid diet? You may need to be on a clear liquid diet befor e a test or surgery on your stomach or bowels (small and large intestines). You may also nee d this diet if you have nausea, vomiting, diarrhea, or trouble eating solid food. Clear liqu ids are easily digested and do not put a strain on your stomach or intestines. They also hel p to keep your digestive tract empty. The digestive tract is the path that food takes throug h your body as it is digested. What liquids and foods can I include? Clear juices (such as apple, cranberry, or grape), strained citrus juices or fruit punch Coffee or tea (without cream or milk) Water Clear sports drinks or soft drinks, such as parris fidelina, lemon-[place] soda, or club soda (no c tobi or root beer) Clear broth, bouillon, or consomm Plain popsicles (no popsicles with pureed fruit or fiber) Hard candy Flavored gelatin without fruit What liquids and foods should I avoid? All solid foods, such as bread, pasta, fruit, vegetables, dairy, and protein foods Beverages containing alcohol Dairy products, such as milk, hot cocoa, buttermilk, and cream Fruit smoothies, nectars, fruit juices with pulp, and prune juice Tomato and vegetable juices Soups that contain vegetables, noodles, rice, or meat What is sample menu for a clear liquid diet? Breakfast: 1 cup of juice, cup of clear broth, cup of lemon gelatin, and 1 cup of cof fee with sugar Morning snack: 1 cup of a clear sports drink Lunch: cup of juice, cup of clear broth, cup of lemon-[place] soda, and 1 popsicle (e quals about 2 ounces of liquid) Afternoon snack: 1 popsicle Evening meal: cup of juice, cup of clear broth, cup of parris fidelina, cup of flavo red gelatin, and 1 cup of herbal tea with honey or sugar Evening snack: 1 cup of flavored gelatin documented in this encounter Progress Notes Mellisa Castillo MD - 08/29/2019 11:00 AM PSTFormatting of this note might be differen t from the original. [facility] Consultation H&P Mellisa Castillo MD Date of Visit: 08/29/2019 HPI Chief Complaint Patient presents with Consult H&P No history exists. Poppy Bah, 79 y.o., is referred here today by Dr Craft for recent endometria l curetting revealing complex hyperplasia with atypia. Poppy is here today with her daughter, Cinthya to discuss treatment recommendations. Poppy says that this journey began when she had some vulvar itching and burning. An ultras ound was performed in April which revealed endometrial thickening and as Dr. Craft cou ld not sample the patient in the office, she proceeded to D&C hysteroscopy. Poppy is not having any symptoms of vaginal bleeding or pelvic pain. She recently describes some discomfort in her hips bilaterally a few weeks ago which caused her to have trouble walking forward, this has spontaneously resolved and was thought to be musculoskeletal. Assessment and Plan Complex atypical hyperplasia of the endometrium. I sat with Poppy and NIKKI and discussed the pathology report, I pat my usual diagrams illustrating the progression of hyperplasia and the relationship to possible endometrial cancer. There is a 40% chance that there already is an endometrial cancer present. I recommend eit her a hysterectomy, BSO versus progestational therapy. We went over the pros and cons of enoch th and Poppy feels that surgery is the best choice. We discussed the potential risks of surgery such as injury to the surrounding urinary syste m, bowel, bleeding, blood clots, blood transfusion, infection, nerve injury and converting t his to a traditional laparotomy if at any point I feel it is necessary or safer. We spoke about the recovery and the possibility of following up with Dr. Luana calderón a postoperative visit. Depending on how the surgery goes and the pathology report, it may be necessary for her to come to [place] for a postoperative visit, we will see. Poppy does want to proceed with surgery and this will be scheduled within the next few week s, Poppy is thinking of postponing this until October when her daughter gets back from a trip to [place] but we will look at the schedule. Thank you for allowing me to participate in Poppy's care. Orders Placed This Encounter Procedures Basic Metabolic Panel CBC no Differential ECG 12 lead Case Request - OR/ENDO/ASC/OB: ROBOTIC ASSISTED XI HYSTERECTOMY WITH BILATERAL SALPING ECTOMY Requested Prescriptions No prescriptions requested or ordered in this encounter A total of 60 minutes was spent with the patient with >50% spent on counseling and coordina ting care on management of complex atypical hyperplasia, surgical scheduling and preop testi ng Outpatient Medications aspirin 81 mg EC tablet (Taking) Take 81 mg by mouth Daily. atenolol (TENORMIN) 50 mg tablet (Taking) Take 25 mg by mouth Daily. Calcium Carbonate-Vitamin D (CALCIUM-D PO) Take by mouth. clobetasol (TEMOVATE) 0.05% cream (Taking) furosemide (LASIX) 40 mg tablet (Taking) Take 40 mg by mouth 2 times daily. ibuprofen (ADVIL,MOTRIN) 600 MG tablet Take 1 tablet by mouth every 6 hours as needed for Pain. levothyroxine (SYNTHROID) 150 mcg tablet (Taking) Take 150 mcg by mouth every morning (bef ore breakfast). Multiple Vitamin (MULTI VITAMIN PO) (Taking) Take by mouth. potassium chloride (K-DUR) 20 mEq ER tablet (Taking) Take 20 mEq by mouth Daily. risedronate (ACTONEL) 150 MG tablet (Taking) Take 150 mg by mouth Every 30 days. sulfaSALAzine (AZULFIDINE) 500 mg tablet (Taking) Take 500 mg by mouth 2 times daily. UNABLE TO FIND Med Name:Resmed AirSense 10 autoset CPAP: 6-12cm with oxygen 2 l/min. Allergies: Her is allergic to hctz [hydrochlorothiazide]. Past Medical History: Diagnosis Date Anxiety Arthritis Bilateral leg edema Cataracts, bilateral Diverticulitis DJD (degenerative joint disease) Hemorrhoids History of rheumatic fever Hypertension Hypothyroidism Obesity LEONARDO (obstructive sleep apnea); uses cPAP Past Surgical History: Procedure Laterality Date CATARACT REMOVAL Bilateral 2015 COLONOSCOPY 2002, 2006 Sigmoid diverticulosis. Lg interna hemorrhoids COLONOSCOPY N/A 04/05/2019 Procedure: COLONOSCOPY; Surgeon: Ghanshyam Caballero MD; Location: [facility] MEDICAL PROCEDURE UNIT DILATION AND CURETTAGE OF UTERUS N/A 06/12/2019 Procedure: Hysteroscopy D&C with possible myosure polypectomy; Surgeon: Eugenie Oquendo O; Location: [facility] MAIN OR KNEE ARTHROPLASTY Left 2012 KNEE ARTHROPLASTY Right 2009 Family History Problem Relation Age of Onset Uterine cancer Mother Heart disease Father Diabetes Son Heart disease Maternal Grandmother Heart disease Paternal Grandmother Heart disease Paternal Grandfather Social History Tobacco Use Smoking status: Never Smoker Smokeless tobacco: Never Used Substance Use Topics Alcohol use: Yes Comment: Very, very rare (once a year) wine Drug use: No Social History Patient does not qualify to have social determinant information on file (likely too young). Social History Narrative Not on file OB History Para Term AB Living 4 4 SAB TAB Ectopic Molar Multiple Live Births # Outcome Date GA Lbr Danny/2nd Weight Sex Delivery Anes PTL Lv 4 Para 3 Para 2 Para 1 Para Obstetric Comments Age 19 at first Review of Systems Constitution: Positive for weight gain. Over the past 2 years HENT: Negative. Eyes: Negative. Cardiovascular: Negative. Respiratory: Positive for sleep disturbances due to breathing. Uses CPAP and 2 L of oxygen at night Endocrine: Negative. Hematologic/Lymphatic: Negative. Skin: Negative. Musculoskeletal: Positive for joint pain. Gastrointestinal: Negative. Genitourinary: Negative. Neurological: Negative. Psychiatric/Behavioral: A lot of stress because of her 's health condition Allergic/Immunologic: Negative. Physical Exam BP 131/62 | Pulse 61 | Temp 36.5 C (97.7 F) (Oral) | Resp 16 | Ht 1.613 m (5' 3.5") | Wt 122 kg (269 lb) | SpO2 98% | No | BMI 46.90 kg/m Constitutional This is a pleasant appearing female in no distress. Obese Head Normocephalic; atraumatic Eyes Conjunctivae and sclerae are clear and without icterus. Pupils are reactive and equal. ENMT Neck Thyroid is smooth Hematologic/Lymphatic No supraclavicular, posterior cervical, axillary or inguinal lymphade nopathy. Respiratory Clear to auscultation bilaterally, good inspiratory effort, no wheezes no crack les. Cardiovascular Regular rate and rhythm no murmurs. Breasts Abdomen Soft nontender, and nondistended. There is a palpable umbilical hernia. No hepato splenomegaly. No ascites. Genitalia/Groin/Buttock (F) External genitalia is normal appearing. Cervix is mid in position with a moderate amount of prolapse. No lesions are noted. I can not palpate the uterus because of the patient's body habitus. Back/Spine No kyphosis, scoliosis, compression fractures. Non-tender to palpation. Extremities Lower extremities are without edema, full range of motion. Musculoskeletal No tenderness or swelling, normal range of motion without obvious weakness. Neurologic Nonfocal. Psychiatric normal affect This note was dictated using voice recognition software. Please contact me if there are an y questions regarding its content. Electronically signed by Mellisa Castillo MD at 08/29 12:41 PM PSTdocumented in this encounter Plan of Treatment +--------+---------+ + + + | Date | Type | Specialty | Care Team | Description | +--------+---------+ + + + | 07/15/ | Office | Sleep Medicine | Apollo Villa PA | | 2019 | Visit | | [address] | | | | | | [place] | | | | | | [id number] | | | | | | | | +--------+---------+ + + + documented as of this encounter Procedures + +--------+ + + + | Procedure Name | Priori | Date/Time | Associated Diagnosis | Comments | | | ty | | | | + +--------+ + + + | PATHOLOGY - EXTERNAL | | 05/23/2019 | | Results for this | | SCAN | | 12:00 AM | | procedure are in the | | | | PDT | | results section. | + +--------+ + + + | IMAGING REPORT - | | 05/02/2019 | | Results for this | | EXTERNAL SCAN | | 12:00 AM | | procedure are in the | | | | PDT | | results section. | + +--------+ + + + | IMAGING REPORT - | | 05/02/2019 | | Results for this | | EXTERNAL SCAN | | 12:00 AM | | procedure are in the | | | | PDT | | results section. | + +--------+ + + + documented in this encounter Results CBC no Differential (10/09/2019 6:05 AM PST) [...] PROVIDE NCE | | | | by [facility] [address], | | [place] | | | | [place] [address] | | HEART | | | |Performed by [facility] [address], [place] [address] | | MEDICAL | | | | [...] + | [facility] | [address] | [place] [address] | | | [facility] | | | | | [...] | | LABORATORY | | | | [facility] [address], | | [place] | | | | [place] [address] | | | | + + + + + + + + | Specimen | + + | Blood specimen | | (specimen) | + + + + + + + | Performing | Address | City/State/Zipcode | Phone Number | | Organization | | | | + + + + + | [facility] | [address] | [place] [address] | | | [facility] | | | | | LABORATORY [facility] | | | | + + + + + PATHOLOGY - EXTERNAL SCAN (05/23/2019 12:00 AM PDT) + + + | Narrative | Performed At | + + + | Ordered by an | | | unspecified provider. | | + + + IMAGING REPORT - EXTERNAL SCAN (05/02/2019 12:00 AM PDT) + + + | Narrative | Performed At | + + + | Ordered by an | | | unspecified provider. | | + + + IMAGING REPORT - EXTERNAL SCAN (05/02/2019 12:00 AM PDT) + + + | Narrative | Performed At | + + + | Ordered by an | | | unspecified provider. | | + + + documented in this encounter Visit Diagnoses + + | Diagnosis | + + | Endometrial hyperplasia with atypia - Primary | + + | Essential (primary) hypertension Unspecified essential hypertension | + + documented in this encounter
--- OUTSIDE RECORDS SUMMARY | ~2019-12-14 | XMS | Encounter Summary ---
Demographics + + + | Address | [address] | | | [place] [address] | + + + | Home Phone | | + + + | Preferred Language | Unknown | + + + | Marital Status | | + + + | Adventism Affiliation | 1077 | + + + [...] Team Providers + +------+ + | Care Ict Systems Test Engineer Name | Role | Phone | + [...] Description | +--------+---------+ + + + | 06/16/ | Office | [facility] | Apollo Villa PA | LEONARDO on CPAP (Primary | | 2018 | Visit | SLEEP DISORDER [address] | [address] | Dx) | | | | [address] [place] | [place] | | | | | [place] [address] | [phone] | | | | | [phone] | | | +--------+---------+ + + + [...] + + + | Blood Pressure | 130/74 | 06/16/2018 9:33 AM | | | | | PDT | | + + + + + | Pulse | 72 | 06/16/2018 9:33 AM | | | | | PDT | | + + + + + | Temperature | - | - | | + + + + + | Respiratory Rate | 16 | 06/16/2018 9:33 AM | | | | | PDT | | + + + + + | Oxygen Saturation | 96% | 06/16/2018 9:33 AM | | | | | PDT | | + + + + + | Inhaled Oxygen | - | - | | | Concentration | | | | + + + + + | Weight | 128.8 kg (283 lb | 06/16/2018 9:33 AM | | | | 13.5 oz) | PDT | | + + + + + | Height | - | - | | + + + + + | Body Mass Index | 45.81 | 07/06/2017 9:24 AM | | | | | PST | | + + + + + documented in this encounter Progress Notes Apollo Villa PA - 06/16/2018 9:30 AM PDT Subjective: Patient ID: Poppy Bah is a 78 y.o. female. HPI last office visit: 11/01/2017 date of polysomnography: 06/06/2017 AHI: 22.6 (44.5 in REM) RDI: 22.6 O2%: 60% with 196.7 minutes below 88% Machine type: ResMed AirSense 10 Mask type: Respironics AmaraView full face mask DME: [facility] [place] pressure: 6-12 cm with oxygen at 2 L/min Median: 7.0 cm 95%: 7.9 cm maximum: 8.4 cm Nights using CPAP: 227/227 % of nights >4 hours: 100% average usage (all nights): 7:48 average usage (nights used): 7:48 AHI: 0.5 Poppy comes in for CPAP compliance and renewal of her oxygen. She is doing well with her C PAP and oxygen, wearing it nightly for the duration of her sleep. She understands the impor tance of treating her apnea and oxygen desaturation. She does not consider sleeping without it. Her CPAP has become a regular part of her sleep routine. I have discussed the download in detail. This shows that her sleep apnea is controlled, wi th an AHI of 0.5. It also shows that her leaks are controlled. Review of Systems Objective: BP 130/74 | Pulse 72 | Resp 16 | Wt 128.8 kg (283 lb 13.5 oz) | SpO2 96% | BMI 45.81 k g/m Physical Exam Assessment: Problem #1: OBSTRUCTIVE SLEEP APNEA ([id number]) This is controlled with CPAP and oxygen at 2 L/min. She is doing well with her CPAP usage. Plan: 1. She is to continue with CPAP indefinitely. 2. Touch base with medical supplier twice per year to ensure that all equipment is satisfa ctory. I will follow up again in 1 year, sooner prn. At that time we will reassess with all appro priate paperwork. Fifteen minutes were spent [id number], with the majority of time spent in [...] 2019 | Visit | | [address] | | | | | | [place] | | | | | | [id number] | | | | | | | | +--------+---------+ + + + documented as of this encounter Visit Diagnoses + + | Diagnosis | + + | LEONARDO on CPAP - Primary Obstructive sleep apnea (adult) (pediatric) | + + documented in this encounter"
--- OUTSIDE RECORDS SUMMARY | ~2019-12-14 | XMS | Encounter Summary ---
Demographics + + + | Address | [address] | | | [place] [address] | + + + | Home Phone | | + + + | Preferred Language | Unknown | + + + | Marital Status | | + + + | Church Affiliation | 1077 | + + + | Race | Unknown | + + + | Ethnic Group | Unknown | + + + Author + + + | Author | [facility] | | | and [place] | + + + | Organization | [facility] | | [...] Team Providers + +------+ + | Care Splicer Machine Operator Name | Role | Phone | + +------+ + | Karen Alvarado MD | PCP | | + +------+ + Encounter Details +--------+ + + + + | Date | Type | Department | Care Team | Description | +--------+ + + + + | 04/05/ | Anesthesia | [facility] | Joey Liu MD | | | 2019 | Event | [facility] | [address] | | | | | [address] | [place] | | | | | [place] | [address] | | | | | [address] | [phone] | | | | | [phone] | | | +--------+ + + + + Anesthesia Record + + + + + | Procedure Name | Responsible | Anesthesia Start | Anesthesia Stop Time | | | Anesthesiologist | Time | | + + + + + | COLONOSCOPY (N/A | Joey Liu MD | 04/05/19 0753 | 04/05/19 08 | | Rectum) | | | | + + + + + +----+---+ + + | Da | T | Event | Comment | | te | i | | | | | m | | | | | e | | | +----+---+ + + | 08 | 0 | | | | /2 | 7 | | | | 1/ | 5 | | | | 20 | 0 | | | | 19 | | | | +----+---+ + + | | 0 | An Checkout | Pre-use anesthesia machine/equipment checkout. | | | 7 | | | | | 5 | | | | | 0 | | | +----+---+ + + | | 0 | An Start | | | | 7 | Data | | | | 5 | | | | | 0 | | | +----+---+ + + | | 0 | An Start | Reassessment prior to anesthesia induction/procedure. | | | 7 | | | | | 5 | | | | | 3 | | | +----+---+ + + | | 0 | Pre-Procedu | | | | 7 | ral Timeout | | | | 5 | Completed | | | | 8 | | | +----+---+ + + | | 0 | An | | | | 7 | Induction | | | | 5 | | | | | 8 | | | +----+---+ + + | | 0 | First | | | | 7 | Inc/Proc St | | | | 5 | | | | | 9 | | | +----+---+ + + | | 0 | an stop | | | | 8 | data | | | | 2 | | | | | 2 | | | +----+---+ + + | | 0 | An Stop | Patient handed off to recovery nurse. | | | 3 | | | | | 0 | | | +----+---+ + + +------+ | Meds | +------+ + + + | Name | Total | + + + | propofol | 160 mg | + + + | propofol | 137.7 mg | + + + | lidocaine 2% | 50 mg | + + + | LR (Infusion) | 400 mL | + + + + + | No agents on file. | + + + + | No blood administrations on file. | + + +--------+ + + + | Type | Details | Placement | Removal | +--------+ + + + | Periph | 04/05/19; 721; Right; Forearm; | 04/05/19721 by | 04/05/19 08 by | | teresita | [id number] catheter system; | Unique Hernandez, | Clare Tripathi RN | | IV | 20 gauge; distraction, | RN | | | | intradermal injection; no longer | | | | | indicated, removed per | | | | | policy/procedure; 04/05/19; 08 | | | +--------+ + + + [...] [place] | | | | | | [phone] | | | | | | | | +--------+---------+ + + + documented as of this encounter Visit Diagnoses Not on filedocumented in this encounter Administered Medications + +---------+ +------+------+------+ | Medication Order | MAR | Action | Dose | Rate | Site | | | Action | Date | | | | + +---------+ +------+------+------+ | lactated ringers (LR) infusion | New Bag | 04/05/20 | | | | | Intravenous, CONTINUOUS PRN, | | 19 7:29 | | | | | Starting Wed04/05/19 at 0729, | | AM PDT | | | | | Anesthesia Intra-op | | | | | | + +---------+ +------+------+------+ +---+---+ | | | +---+---+ + +-------+ +-------+---+---+ | lidocaine (PF) 2% injection | Given | 04/05/20 | 50 mg | | | | Intravenous, PRN, Starting Wed | | 19 7:58 | | | | | 04/05/19 at 0758, Anesthesia | | AM PDT | | | | | Intra-op | | | | | | + +-------+ +-------+---+---+ +---+---+ | | | +---+---+ + +-------+ +-------+---+---+ | propofol (DIPRIVAN) injection | Given | 04/05/20 | 20 mg | | | | Intravenous, PRN, Starting Wed | | 19 8:16 | | | | | 04/05/19 at 0758, Anesthesia | | AM PDT | | | | | Intra-op | | | | | | + +-------+ +-------+---+---+ +-------+ +-------+---+---+ | Given | 04/05/20 | 20 mg | | | | | 19 8:15 | | | | | | AM PDT | | | | +-------+ +-------+---+---+ | Given | 04/05/20 | 10 mg | | | | | 19 8:13 | | | | | | AM PDT | | | | +-------+ +-------+---+---+ +---+---+ | | | +---+---+ + +---------+ + +-------+---+ | propofol (DIPRIVAN) injection | New Bag | 04/05/20 | 120 | 91.8 | | | Intravenous, CONTINUOUS PRN, | | 19 8:00 | mcg/kg/m | mL/hr | | | Starting 04/05/19 at 0800, | | AM PDT | in | | | | Anesthesia Intra-op | | | | | | + +---------+ + +-------+---+ +---+---+ | | | +---+---+ documented in this encounter"
--- OUTSIDE RECORDS SUMMARY | ~2019-12-14 | XMS | Encounter Summary ---
Demographics + + + | Address | [address] | | | [place] [address] | + + + | Home Phone | | + + + | Preferred Language | Unknown | + + + | Marital Status | | + + + | Episcopal Affiliation | 1077 | + + + | Race | Unknown | + + + | Ethnic Group | Unknown | + + + Author + + + | Author | [facility] | | | and [place] | + + + | Organization | [facility] | | | and [...] Team Providers + +------+ + | Care Inspector Poising Name | Role | Phone | + +------+ + | Karen Alvarado MD | PCP | | + +------+ + Encounter Details +--------+ + + + + | Date | Type | Department | Care Team | Description | +--------+ + + + + | 08/29/ | Documentati | [facility] | Yumiko Bustillos RN | | | 2019 | on | GROUP GYNECOLOGIC | | | | | | ONCOLOGY [address] | | | | | | [place] | | | | | | [address] | | | | | | [phone] | | | +--------+ + + + [...] documented as of this encounter Progress Notes Yumiko Bustillos RN - 08/29/2019 12:[address] Alvarado's office to let us kno w that Poppy can continue to take the Sulfasalazine. Call to Poppy to let her know that she can continue taking that medication. Patient express ed understanding. Yumiko Arreaga RN - 08/29/2019 12:49 PM PSTCall to office of Dr. Karen Alvarado Message left with the bus cleaner for a call back from the MA leadership development instructor in regards to how jose c ent should take the sulfasalazine prior to surgery. They are only in office 1/2 days. So will call back tomorrow afternoon.Electronically annamarie d by Yumiko Bustillos RN at 08/29/2019 1:59 PM PSTYumiko Bustillos RN - 08/29/2019 12:49 PM PS TPre op paperwork reviewed with patient and her daughter, including medications to hold or r ceciw with prescribing provider. Poppy will hold her aspirin 7 days prior to surgery. She will avoid ibuprofen 7 days prior to surgery. She will hold Lasix the evening before/morning of surgery. Call will be placed to her PCP regarding the Sulfasalazine Post op guidelines reviewed and to be followed for 6-8 weeks post surgery or until cleared by your physician: Showering as usual, no tub baths, hot tubs or swimming Nothing per vagina, no creams, powders, gels, no sexual relations until cleared by your phy sician. No strenuous activity, no lifting over 10 lbs (equivalent to a gallon jug of milk), no twis ting, pushing or pulling. documented in this enc ounter Plan of Treatment +--------+---------+ + + + | Date | Type | Specialty | Care Team | Description | +--------+---------+ + + + | 07/15/ | Office | Sleep Medicine | Apollo Villa PA | | 2019 | Visit | | [address] | | | | | | [place] | | | | | | [id number] | | | | | | | | +--------+---------+ + + + documented as of this encounter Visit Diagnoses Not on filedocumented in this encounter"
--- OUTSIDE RECORDS SUMMARY | ~2019-12-14 | XMS | Encounter Summary ---
Demographics + + + | Address | [address] | | | [place] [address] | + + + | Home Phone | | + + + | Preferred Language | Unknown | + + + | Marital Status | | + + + | Jain Affiliation | 1077 | + + + [...] Team Providers + +------+ + | Care Teaseler Name | Role | Phone | + +------+ + PCP | Unavailable | + +------+ + Encounter Details +--------+ + + + + | Date | Type | Department | Care Team | Description | +--------+ + + + + | 11/19/ | Hospital | [facility] | Karen Alvarado MD | | | 2010 | Encounter | MED CTR XRAY [address] | | | | | [place] | [place], [place] | | | | | [place] [address] | [address] | | | | | [phone] | [phone] | | | | | | | [...] [place] | | | | | | [id number] | | | | | | | | +--------+---------+ + + + documented as of this encounter Procedures + +--------+ + + + | Procedure Name | Priori | Date/Time | Associated Diagnosis | Comments | | | ty | | | | + +--------+ + + + | ECHO COMPLETE | | 11/19/2010 | | Results for this | | | | 11:23 AM | | procedure are in the | | | | PDT | | results section. | + +--------+ + + + documented in this encounter Results ECHO Complete (11/19/2010 11:23 AM PDT) + + | Specimen | + + | | + + + + + | Narrative | Performed At | + + + | [facility] Diagnostic Imaging Department | [facility] | | [address] [facility] | [facility] | | E C H O C A R D | DIAG IMG | | I O G R A P H Y R E P O R T HEIGHT: 5'5" | | | WEIGHT: 215# GREEN PRIZE PACKER: AP REFERRING DR: CAMACHO | | | READING DR: MAVIS DIAGNOSIS: RHEUMATIC HEART DISEASE, | | | LE EDEMA | | | | | | M E A S U R E M E N T S | | | Aortic Root: 26 mm LV Diameter-diastole: | | | 44 mm Aortic Cusp Sep: 17 mm LV | | | Diameter--systole: 26 mm LA: 43 mm | | | Fractional Shortenin % IVS--diastole: | | | 9 mm PFV Aortic Valve: IVS--systole: | | | 13 mm MPG Mitral Valve: mmHg | | | LVPW--diastole: 9 mm PFV TR Jet: | | | 2.35 m/s LVPW--systole: 15 mm RA/RV PPG: | | | 22 mmHg | | | | | | ECHOCARDIOGRAM REPORT, 11/19/2010 REFERRING PHYSICIAN: | | | Karen Alvarado MD CLINICAL HISTORY: RHEUMATIC HEART DISEASE, | | | LOWER EXTREMITY EDEMA. TECHNICAL: Quality of study is good. | | | PROCEDURES PERFORMED: This is a complete transthoracic | | | echocardiogram including 2D, M- mode, Doppler and color Doppler | | | analysis. HEMODYNAMICS: Patient was in underlying sinus rhythm | | | throughout the procedure with a ventricular rate in the 60s. | | | FINDINGS: PART 1, CHAMBERS: The left ventricle is of normal | | | diastolic and systolic dimensions with normal wall thickness and | | | regional wall motion. LVEF is calculated at 71%. Bilateral atria | | | are mildly enlarged. Right ventricle is of normal size and | | | systolic function. PART 2, VALVES: Aortic valve is a normal | | | trileaflet valve with adequate opening. It demonstrates mild | | | sclerosis without any significant stenosis or insufficiency noted. | | | Mitral valve is mildly thickened without any significant annular | | | calcification noted. There is a mild to moderate amount of | | | regurgitation seen. Tricuspid valve is normal with mild | | | regurgitation with a peak velocity of 2.35 meters per second | | | consistent with normal right sided pressures. Pulmonic valve is | | | normal without any significant insufficiency seen. PART 3, | | | MISCELLANEOUS: Pericardium is normal without any pericardial | | | effusion seen. DIASTOLOGY: Mitral valve diastolic parameter | | | suggests left ventricular impaired relaxation and diastolic | | | dysfunction. IMPRESSION: 1. NORMAL LEFT VENTRICULAR SIZE | | | AND SYSTOLIC FUNCTION WITH AN LVEF OF 71%. 2. MILD TO | | | MODERATE MITRAL REGURGITATION. 3. MILD TRICUSPID REGURGITATION. | | | 4. NORMAL RIGHT SIDED PRESSURES. 5. STAGE 1 LEFT | | | VENTRICULAR DIASTOLIC DYSFUNCTION. Dictated Date/Time: | | | 11/19/2010 12:59 Transcribed Date/Time: 11/19/2010 17:37 | | | Quality Assurance Test Program Manager: <Electronically Signed by Simran Aguilera, | | | MD> 11/21/10 0930 | | + + + + + | Procedure Note | + + | James, Rad Conversion - 09/22/2013 2:38 PM [facility] | | Diagnostic Imaging Department | | [address] [facility] | | | | | | | | E C H O C A R D I O G R A P H Y R E P O R T | | | | | | HEIGHT: 5'5" WEIGHT: 215# GREEN PRIZE PACKER: AP | | REFERRING DR: CAMACHO HARDIN DR: MAVIS | | | | DIAGNOSIS: RHEUMATIC HEART DISEASE, LE EDEMA | | | | | | M E A S U R E M E N T S | | | | Aortic Root: 26 mm LV Diameter-diastole: 44 mm | | Aortic Cusp Sep: 17 mm LV Diameter--systole: 26 mm | | LA: 43 mm Fractional Shortenin % | | IVS--diastole: 9 mm PFV Aortic Valve: | | IVS--systole: 13 mm MPG Mitral Valve: mmHg | | LVPW--diastole: 9 mm PFV TR Jet: 2.35 m/s | | LVPW--systole: 15 mm RA/RV PP mmHg | | | | | | | | ECHOCARDIOGRAM REPORT, 11/19/2010 | | | | REFERRING PHYSICIAN: Dr. Karen Alvarado MD | | | | CLINICAL HISTORY: RHEUMATIC HEART DISEASE, LOWER EXTREMITY EDEMA. | | | | TECHNICAL: Quality of study is good. | | | | PROCEDURES PERFORMED: This is a complete transthoracic echocardiogram | | including 2D, M- | | mode, Doppler and color Doppler analysis. | | | | HEMODYNAMICS: Patient was in underlying sinus rhythm throughout the procedure | | with a | | ventricular rate in the 60s. | | | | FINDINGS: | | PART 1, CHAMBERS: The left ventricle is of normal diastolic and systolic | | dimensions with | | normal wall thickness and regional wall motion. LVEF is calculated at 71%. | | Bilateral atria are | | mildly enlarged. Right ventricle is of normal size and systolic function. | | | | PART 2, VALVES: Aortic valve is a normal trileaflet valve with adequate | | opening. It demonstrates | | mild sclerosis without any significant stenosis or insufficiency noted. Mitral | | valve is mildly | | thickened without any significant annular calcification noted. There is a mild | | to moderate amount of | | regurgitation seen. Tricuspid valve is normal with mild regurgitation with a | | peak velocity of 2.35 | | meters per second consistent with normal right sided pressures. Pulmonic valve | | is normal without | | any significant insufficiency seen. | | | | PART 3, MISCELLANEOUS: Pericardium is normal without any pericardial effusion | | seen. | | | | DIASTOLOGY: Mitral valve diastolic parameter suggests left ventricular | | impaired relaxation and | | diastolic dysfunction. | | | | IMPRESSION: | | 1. NORMAL LEFT VENTRICULAR SIZE AND SYSTOLIC FUNCTION WITH AN LVEF OF | | 71%. | | | | 2. MILD TO MODERATE MITRAL REGURGITATION. | | | | 3. MILD TRICUSPID REGURGITATION. | | | | 4. NORMAL RIGHT SIDED PRESSURES. | | | | 5. STAGE 1 LEFT VENTRICULAR DIASTOLIC DYSFUNCTION. | | | | Dictated Date/Time: 11/19/2010 12:59 | | Transcribed Date/Time: 11/19/2010 17:37 | | Quality Assurance Test Program Manager: | | <Electronically Signed by Simran Aguilera MD> 11/21/10 0930 | + + + +---------+ + + | Performing | Address | City[facility] | Phone Number | | Organization | | | | + +---------+ + + | [place] | | | | | [place] | | | | + +---------+ + + documented in this encounter Visit Diagnoses Not on filedocumented in this encounter
[2019-12-14] MEDS ORDERED: ATENOLOL50 MG PO (20:59)
[2019-12-14] MEDS ORDERED: ONDANSETRON ODT8 MG PO (20:59)
[2019-12-14] MEDS ORDERED: NORCO 5-325 TA1 EACH PO (20:59)
[2019-12-14] MEDS ORDERED: CALCIUM 500 +1 EAC2 PO (21:00)
[2019-12-14] MEDS ORDERED: SYNTHROID150 MCG PO (21:02)
[2019-12-14] MEDS ORDERED: TEMOVATE15 GM TOP (21:02)
[2019-12-14] MEDS ORDERED: FUROSEMIDE40 MG PO (21:02)
[2019-12-14] MEDS ORDERED: ACTONEL150 MG PO (21:03)
[2019-12-14] MEDS ORDERED: MULTIVITAMINS1 EAC7 PO (21:03)
[2019-12-14] MEDS ORDERED: K-TAB ER20 MEQ PO (21:03)
--- OUTSIDE RECORDS SUMMARY | 2019-12-14 21:34 | XMS ---
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 Shu has no Care Guidelines for this patient. Festus VISIT COUNT (12 MO.) [address] [facility] T[facility] 2 NOTE: Visits indicate total known visits. ED/C VISIT TRACKING (12 MO.) [facility]2019 [facility] [place] [facility] COMPLAINT: - SWOLLEN ANKLE 12[facility]11/2019 [facility] [facility] DIAGNOSES: - Back Pain - pain/arm/neck/chest - Strain of muscle and tendon of unspecified wall of thorax, in INPATIENT VISIT TRACKING (12 MO.) No inpatient visits to display in this time frame [email or web address]
--- NOTE | 2019-12-14 22:55 | NUR ---
HELPED PT TO THE BATHROOM AND BACK TO BED. VITALS AND WEIGHT DONE AND CHARTED. BEDSIDE TABLE AND CALL LIGHT IN REACH.
--- NOTE | 2019-12-14 23:18 | NUR ---
PT ADMITTED 2240 FROM ED, HELPED TRANSFER TO BED AND WALKED TO BR, VOIDED, SLOW GAIT, PAINFUL LEGS, 1PA R LEG CELLULITIS LOWER EXTREMITIY RED AND EDEMAOUS, WARM TO TOUCH. AREA MARKED, IVF INFUSING, ANCEF GIVEN AND FIRST IVF BOLUS STARTED. PT ALERT AND ORIENTED. COOP WITH ADMIT QUESTIONS,
--- NOTE | 2019-12-14 23:49 | NUR ---
ASSESSMENT COMPLETE, VSS. PT A/OX4, REPORTS TOLERABLE PAIN AT THIS TIME. SCANT EMESIS NOTED, PRN ZOFRAN GIVEN (SEE EMAR). NAUSEA RESOLVED FOLLOWING ZOFRAN AND SMALL SNACK PER PT REQUEST. LR BOLUS INFUSING OVER 1HR PER MD ORDERS, IV SITES X2 WNL. AWAITING VANCO FROM MOCK UP BUILDER. REDDNESS TO LLE OUTLINED, CIRCUMFERENCE TO LEFT LAG MARKED IN TWO PLACES. PROXIMAL MARKER 49CM, CIRCUMFERENCE TO DISTAL MARKER 32 CM. BILATERAL PEDAL PULSES NOTED. WILL CONTINUE TO MONITOR LEFT LEG. NO ADDITIONAL NEEDS VERBALIZED, CALL LIGHT IN REACH.
--- NOTE | 2019-12-15 00:32 | NUR ---
FIRST LITER BOLUS COMPLETE. SECOND LITER BOLUS INFUSING AT 500MLS/HR, SITE WNL. IV VANCO ALSO INFUSING PER MD ORDERS, SITE WNL. EDUCATION GIVEN AND PT VERBALIZED UNDERSTANDING R/T VANCO MEDICATION AND INFUSION. NO FURTHER NEEDS VERBALIZED. CALL LIGHT IN REACH.
--- NOTE | 2019-12-15 00:58 | NUR ---
ED RN AND AIR HAMMER STRIPPER IN ROOM TO COLLECT COVID SAMPLE.
--- NOTE | 2019-12-15 02:33 | NUR ---
PT AWAKE, C/O 3/10 H/A, L LEG PAIN AND GENERALIZED ACHES, MEDICATED WITH TYLENOL 650MG PO. HOB ELEVATED, HAD 100CC GREEN BILE COLORED EMESIS. PT STATES THAT SHE USES O2 2LAT HS ONLY AND WEARS A C PAP AT HOME. O2 2L NC APPLIED AT HER REQUETS, WILL NOTIFY
--- NOTE | 2019-12-15 03:24 | NUR ---
PT RESTING QUIETLY IN BED WITH EYES CLOSED. RESPIRATIONS EVEN AND UNLABORED, NO DISTRESS NOTED. 2LNC IN PLACE. IV MAINTENANCE FLUIDS INFUSING AT 125MLS/HR, CALL LIGHT IN REACH.
--- NOTE | 2019-12-15 04:31 | NUR ---
ASSESSMENT COMPLETE, NO NEW CHANGES OR CONCERNS. PT REPORTING FEELING NAUSEOUS, EMESIS BAG PROVIDED AND HOB ELEVATED. BT ACTIVE, UNABLE TO GIVE ZOFRAN AT THIS TIME. PT TOOK DEEP BREATHS AND SIPS OF WATER. WILL MONITOR. PT UP TO VOID, AUTO DRIVER NOVEMBER IN ROOM. NO FURTHER NEEDS, REPORTS TOLERABLE 2-3/10 PAIN. REDDNESS WITHIN OUTLINED AREA, BILATERAL PEDAL PULSES NOTED. WARM TO THE TOUCH.
--- NOTE | 2019-12-15 04:38 | NUR ---
HELPED PT TO THE BATHROOM AND BACK TO BED. BEDSIDE TABLE AND CALL LIGHT IN REACH.
--- NOTE | 2019-12-15 05:04 | NUR ---
VITALS DONE AND CHARTED. WET WASHCLOTH GIVEN PER PT REQUEST. BEDSIDE TABLE AND CALL LIGHT IN REACH.
--- NOTE | 2019-12-15 05:30 | NUR ---
PT REPORTS LAST BM WAS ON Wednesday12/11/19. PT REPORTS SHE HAS HAS A DECREASED APETITE AND IS ON MEDS THAT CAN CONSTIPATE HER. SPOKE TO STUDIO POTTER NAOMY. NAOMY RN TO PUT IN NIO FOR BOWEL CARE.
--- NOTE | 2019-12-15 06:15 | NUR ---
WHEN CHECKING AM VITALS, PT HR VARIED FROM 80'S TO 150'S ON FINGER PROBE. PT RECENTLY AMBULATED BACK TO BED AFTER VOIDING PER DE ICER INSTALLER NOVEMBER. PT ALLOWED TO REST, DENIES CHEST PAIN, SOB, ASYMPTOMATIC AT THIS TIME. RECENT BP OF 101/60, PER O2 SAT PROBE HR 80'S-150'S. THIS RN DID APICAL, RESULT OF 95, APPEARS IRREGULAR IN RHYTHM. BOOTH OPERATOR NAOMY ASKED TO DO APICAL FOR SECOND OPINION. PER RN NAOMY, RESULT OF 100. DISCUSSED WITH BOOTH OPERATOR NAOMY, PER BOOTH OPERATOR, WILL MONITOR AND CALL DR SAUCEDO PRIOR TO SHIFT CHANGE.
--- NOTE | 2019-12-15 06:35 | NUR ---
W SPOT CHECK O2 SATS BY MONITOR PTS HEART RATE WAS TACHY AT 150'S PER PRIMARY RN, APICAL HEART RATE WAS 85-95BPM. PT DENIED SOB OR CHEST PAIN,101/60 BP. ASYMPTOMATIC DENIES FEELINGS OF HEART RACING. PRIMARY RN ASSESSED PT AND HEART RATE RHYTHM WAS ALSO IRREGULAR AND TACHY WITH HER ASSESSMENT. THIS RN ASSESSED PT. PER MONITOR PULSE WAS FLUCTUATING BETWEEN 120-145BPM , APICALLY WAS 100 IRREGULAR. DENIES ANY SOB OR CP. HAS HAD SEVERAL BOUTS OF SMALL AMOUNTS OF EMESIS AND DRYHEAVING. SKIN SLIGHTLY DISPHORETIC, 2 BEDCOVERS REMOVED, ALERT AND ORIENTED. O2 2LNC IN PLACE PT STATED THAT SHE USES BIPAP AT HOME WITH O2 2L NC AT HS ONLY. SATS 95-99% ON 2L. DR SAUCEDO NOTIFIED VIA PHONE OF ABOVE. NEW ORDERS FOR EKG OBTAINED.
--- NOTE | 2019-12-15 06:42 | NUR ---
EKG BEING DONE BU RT AT THIS TIME, PT ALERT AND ORIENTED, DENIES SOB OR CP.
--- NOTE | 2019-12-15 06:54 | NUR ---
Dr. Escalona notified of EKG results. Orders for telemetry, repeat BP and recheck rate in an hour.
--- NOTE | 2019-12-15 07:01 | NUR ---
bp 75/39 9120, tele#[address], pt awake, alert and oriented, denies cp or sob. diaphorestic skin. will do cbg, MD will be notidied of bp
--- NOTE | 2019-12-15 07:05 | NUR ---
DR SAUCEDO NOTIFED OG BP 75/39 MAP 48 MANUALLY , PT DENIES CP, ALERT AND [id number]. NEW ORDERS FOR IL LR BOLUS AND MOVE TO ICU
--- NOTE | 2019-12-15 07:08 | NUR ---
BLOOD SUGAR DONE. INFORMED HER LIAM SEN.
--- NOTE | 2019-12-15 07:12 | NUR ---
NEW ORDERS TO TRANSFER PT TO ICU VIA PHONE AND START 4GM MAG IV, ICU AND AIR CONDITIONING MANAGER NOTIFIED, PT BEING TRANFERRED RIGHT NOW
--- NOTE | 2019-12-15 07:38 | NUR ---
PT TRANSFERRED FROM [facility] 123 TO CCU AT 0715 THIS AM DUE TO LOW BP AND INCREASED HR. ON ARRIVAL PT ALERT AND ORIENTED X4. PT DENIES CHEST PAIN OR DIZZINESS AT THIS TIME. UPON INSPECTION OF PTS LEFT LEG- REDNESS, SWELLING, PAIN, AND +3PITTING EMDEMA. RIGHT LEG +1 PITTING EDEMA. ELEVATED LEFT LEG WITH PILLOW AT THIS TIME. PULSES ARE WEAK IN LLE, PT ABLE TO WIGGLE TOES, CMS INTACT PT STATES LLE IS SLIGHTLY PAINFUL TO TOUCH. PT APPEARS TO REST WHEN GIVEN THE CHANCE BUT WAKES UP EASILY. PT HAS NO COMPLAINTS AT THIS TIME 1L OF LR GOING IN AT THIS TIME. IN ROOM
--- NOTE | 2019-12-15 08:52 | NUR ---
PT UP TO BEDSIDE COMMODE WITH 1 PERSON SBA. PT ABLE TO VOID, NO BM AT THIS TIME. PT STATED THAT SHE FELT THE NEED TO "FART" PT REPORTS PAIN IN HER EPIGASTRIC AREA AND IS BURPING WHEN SHE MOVES. PT DENIES ANY MORE NAUSEA AT THIS TIME AND IS WANTING TO EAT, BREAKFAST IS ORDERED FOR PT
--- NOTE | 2019-12-15 09:22 | NUR ---
PT REPORTS EATING PART OF A CRACKER AND FEELING INCREASED NAUSEA. PT RETCHES MULTIPLE TIMES, LESS THAN 15 ML EMISIS. PT HR DROPS DOWN TO 60'S BREIFLY THEN BACK TO 100'S, REMAINS IRREGULAR. PT GIVEN 7-UP TO SIP ON, AND COOL WASHCLOTHS.
--- NOTE | 2019-12-15 10:34 | NUR ---
IN PTS ROOM STARTING POTASSIUM INFUSION. PT STATES THAT SHE IS STILL NOT HUNGRY AT THIS TIME AND IS COMFORTABLE IN BED AT THIS TIME.
--- NOTE | 2019-12-15 11:20 | NUR ---
BÁRBARA FROM RT IN PTS ROOM FITTING PT FOR CPAP AT THIS TIME
--- NOTE | 2019-12-15 11:59 | NUR ---
PT APPEARS TO BE RESTING AT THIS TIME, CALL LIGHT WITHIN REACH
--- NOTE | 2019-12-15 12:28 | NUR ---
MD AWARE OF HEART RYTHM AT THIS TIME. CALL LIGHT WITHIN REACH. PT DENIES ANY NAUSEA, PT REPORTS PAIN IN LLE, 02/22
--- NOTE | 2019-12-15 13:11 | NUR ---
PT RESTING COMFOTABLY. CALL LIGHT WITHIN REACH
--- NOTE | 2019-12-15 14:04 | NUR ---
PT APPEARS TO BE RESTING AT THIS TIME. CALL LIGHT WITHIN REACH
--- NOTE | 2019-12-15 14:39 | NUR ---
Spoke with Poppy. She lives in [place] with her spouse, Juan Luis, who was recently hospitalized and dcd to a SNF. Her grandson lives with them and provides assistance. Son and daughter in law work at [employer] and help whenever needed. Poppy uses a walker,cane, cpap, and shower chair. States she does not go out much as she cannot walk on uneven ground. Financially ok and does not use food bank or [facility]. Wants to dc to home when discharged.
--- NOTE | 2019-12-15 14:41 | NUR ---
Call from pt's daughter in law, Vanessa. Update given. She requests we call them if pt is to discharge over the weekend and they will pick her up.
[2019-12-15] MEDS ORDERED: ADULT LOW DOSE81 MG PO (15:18)
--- NOTE | 2019-12-15 15:32 | NUR ---
PT UP OUT OF BED WORKING WITH MARKUS FROM PHYSICAL THERAPY
--- NOTE | 2019-12-15 16:25 | NUR ---
PT AWAKE AND ALERT&ORIENTED X4 AT THIS TIME. PT STATES THAT SHE FEELS LIKE THAT EIPGASTRIC PAIN IS COMING BACK AND WOULD LIKE A SNACK. PROVIDED PT WITH PUDDING, PT REPORTS THAT HER PAIN IS TOLERABLE AT THIS TIME AND THAT SHE DOES NOT FEEL NAUSEOUS.
--- NOTE | 2019-12-15 17:44 | EKG ---
[facility] [address] [place], [place] [address] Signed Atrial fibrillation with rapid ventricular response ST \T\ T wave abnormality, consider inferolateral ischemia Abnormal ECG No previous ECGs available Confirmed by ILAN SAUCEDO DO ([id number]) on 12/15/2019 5:43:55 PM Electronically Signed By: ILAN SAUCEDO DO 12/15/19 1744 PATIENT NAME: CARROLL MENDIETA Electrocardiogram DATE OF : 40 PHYSICIAN: ILAN SAUCEDO DO REPORT #: [id number] REPORT IS CONFIDENTIAL AND NOT TO BE RELEASED WITHOUT AUTHORIZATION
--- NOTE | 2019-12-15 19:48 | NUR ---
REPORT RECIEVED AND CARE OF PATIENT ASSUMED AT THIS TIME. PT. LAYING IN BED AWAKE AND CURRENTLY HAS IV LR INFUSING AT 125 ML/HR. PT REPORTS NO PAIN AT THIS TIME. PT. LEFT WITH BED IN LOWEST POSITION AND CALL LIGHT IN REACH. PLAN OF CARE DISCUSSED AT THIS TIME.
--- NOTE | 2019-12-15 21:00 | NUR ---
PT. ASSESSMENT COMPLETE. PT REPORTS MILD PAIN IN LEFT LEG THAT IS TOLERABLE. REDNESS IN LEFT LEG IS WITHIN THE LINE. IV FLUIDS CURRENTLY INFUSING. PT STATES THAT SHE DOES NOT WANT OPIOID MEDICATION AND ONLY WANTS TO TAKE TYLENOL FOR HER PAIN. PT. UPDATED ON MEDICATIONS AND PLAN OF CARE. PT. REPORTS NO FURTHER NEEDS AT THIS TIME. PT LAYING IN BED AND CALL LIGHT IS WITHIN REACH.
--- NOTE | 2019-12-15 21:30 | NUR ---
PT. ADMINISTERED IV ABX AND PRN TYLENOL FOR LEFT LEG PAIN. PT. STATED THAT SHE WANTED HER CPAP SHE WAS READY TO GO TO SLEEP. PT. LAYING IN BED ON CPAP WITH NO FURTHER NEEDS AT THIS TIME. BED IN LOWEST POSITION AND CALL LIGHT IN REACH. WILL CONTINUE TO MONITOR THE PATIENT.
--- NOTE | 2019-12-15 23:40 | NUR ---
RESPONDED TO PT. IV ALARM. PT. STATED SHE WAS FEELING HOT FROM HER CPAP AND DECIDED TO REMOVE IT. PT. LEFT LEG WAS REPOSITIONED AFTERWARDS. PT ASSESSMENT WAS ALSO COMPLETED. LEFT LEG STILL RED, WARM, EDEMATOUS, BUT REDNESS STILL WITHIN THE MARKED LINES. PT REPORTS NO FURTHER NEEDS AT THIS TIME. IV LR CURRENTLY INFUSING, PATIENT LAYING IN BED AND CALL LIGHT IS WITHIN REACH.
--- NOTE | 2019-12-16 01:15 | NUR ---
PT. HAS BEEN SLEEPING SINCE HER LAST ASSESSMENT. CPAP IS STILL OFF, PT SPO2 CURRENTLY AT 94%, RESPIRATIONS AT 17. LAST MAP 63, HR 61, IV FLUIDS STILL INFUSING. PT. IN BED AND CALL LIGHT WITHIN REACH. PT. IS DUE TO VOID. WILL CONTINUE TO MONITOR THE PT.
--- NOTE | 2019-12-16 03:30 | NUR ---
PT. ASSESSMENT COMPLETE. PT. WAS ABLE TO AMBULATE TO BEDSIDE COMMODE AND BACK WITH MINIMAL ASSISTANCE. PT. HAS STATES SHE HAD MINOR PAIN IN HER LEFT LEG BUT "NOTHING NEW". PT DENIED PAIN MEDICATION WHEN ASKED. PT. NOW LAYING IN BED WITH IV FLUIDS INFUSING. PT. REPORTS NO FURTHER NEEDS AT THIS TIME. BED IN LOWEST POSITION AND CALL LIGHT WITHIN REACH. WILL CONTINUE TO MONITOR PT.
--- NOTE | 2019-12-16 06:18 | NUR ---
PT. WAS LAYING IN BED. IV PATENCY IN R AC WAS CHECKED AND SALINE LOCKED. PT. WAS ALSO GIVEN IV ABX AND THYROID MEDICATION. PT. WAS REPOSITIONED ON BED AFTERWARD. PT. REPORTS NO FURTHER NEEDS AT THIS TIME. PT. LAYING IN BED, CALL LIGHT WITHIN REACH. WILL CONTINUE TO MONITOR.
--- NOTE | 2019-12-16 07:30 | NUR ---
PATIENT SHIFT REPORT RECIEVED FROM DRAMATIC TEACHER RN. PATIENT RESTING IN BED AT THIS TIME. PATIENT CALLS APPROPRIATELY. WILL CONTINUE TO CLOSELY MONITOR.
--- NOTE | 2019-12-16 08:08 | NUR ---
PT. HELPED OFF OF COMMODE. STATED THAT HER BACK WAS EXTREMELY ITCHY. BACK SHOWED NO REDNESS. PATIENT ALSO STATED HER LEFT THIGH WAS HURTING. TOLD PATIENT SHE COULD HAVE TYLENOL. LEFT LEG REDNESS WAS WITHIN MARKINGS.
--- NOTE | 2019-12-16 09:00 | NUR ---
PATIENT SHIFT ASSESSMENT COMPLETED. PATIENT BREATH SOUNDS CLEAR. PATIENT REMAINS ON RA. DENIES SOB. BOWEL TONES ACTIVE. PATIENT HAS BLE PITTING EDEMA. 3+ EDEMA NOTED TO LEFT LOWER EXTREMITY WITH REDDNESS UP TO HER KNEE SOME REDDNESS ALSO NOTED ON THE LEFT INNER THIGH. ALL SITES MARKED WITH A BOARDER. WILL MONITOR FOR WORSENING. PATIENT DOES COMPLAIN OF PAIN HER HER LEFT EXTREMITY. TYLENOL HELPS CONTROL HER PAIN. PATIENT ENCOURAGED TO GET UP AND MOVING MORE TODAY. PATIENT IS AGREEABLE TO PLAN OF CARE. NO OTHER NEEDS AT THIS TIME. WILL CONTINUE TO CLOSELY MONITOR.
--- NOTE | 2019-12-16 11:00 | NUR ---
PATIENT UP TO CAMMODE AND TOLERATED WELL. PATIENT HAD A LARGE BM. PATIENT THEN UP WITH PHYSICAL THERAPY. PATIENT WORKING WITH PHYSICAL THERAPY. WILL CONTINUE TO CLOSELY MONITOR.
--- NOTE | 2019-12-16 12:30 | NUR ---
PATIENTUP IN THE CHAIR EATING LUNCH. PATIENT IS DOING WELL THIS AFTERNOON. PATIENTS ASSESSMENT REMAINS UNCHANGED. PATIENTS VITALS ARE STABLE. WILL CONTINUE TO CLOSELY MONITOR.
--- NOTE | 2019-12-16 13:35 | NUR ---
PT. ASSISTED TO BEDSIDE COMMODE. PT. REPORTED A HEADACHE. ADMIN. TYLENOL. PT. LEFT IN CHAIR RESTING, DENIED FURTHER NEEDS.
--- NOTE | 2019-12-16 15:30 | NUR ---
REPORT GIVEN TO HAKEEM WHEELER ON [facility]. PATIENT TRANSFERED TO ROOM 113. ALL BELONGINGS SENT WITH PATIENT. PATIENT BROUGHT OVER IN A WHEELCHAIR AND TOELRATED WELL. PATIENT AND RN DENY ANY OTHER NEEDS. WILL CONTINUE TO CLOSELY MONITOR.
--- NOTE | 2019-12-16 15:31 | NUR ---
REPORT RECEIVED FROM LIAM DRISCOLL. PT TRANSFERED TO MED/SURG BY WHEELCHAIR. PT TRANSFERES SELF TO CHAIR WITH SBA. WARM BLANKETS PROVIDED. ASSESSMENT DONE. EDEMA CONTINUES. LLE ANKLE MEASURES 34CM. PT REPORTS SWELLING HAS INCREASED. LLE IS HOT TO TOUCH. LUNG SOUNDS CLEAR. PT REPORTS 7/10 PAIN BUT DECLINES PAIN MEDICATION AT THIS TIME. [place]INA ARRIVED FROM [facility]. LABS DUE, CALL OUT TO [facility] TO CLARIFY. PT RESTING IN CHAIR. CALL LIGHT WITHIN REACH.
--- NOTE | 2019-12-16 16:08 | NUR ---
PHARMACIST CLARIFIES VANCO TROUGH. MEDICAITON STARTED (SEE MAR). EXTRA PILLOWS PROVIDED FOR PT. PT RESTING IN CHAIR. NO ADDITIONAL REQEUSTS OR COMPLAINTS AT THIS TIME. CALL LIGHT WITHIN REACH.
--- NOTE | 2019-12-16 17:13 | NUR ---
DINNER ARRIVED. PT REMAINS UP TO CHAIR TO EAT. IV INFUSION COMPLETE. IV SALINE LOCKED AT THIS TIME. ALCOHOL CAPS APPLIED. PT DENIES ADDITIONAL REQUESTS OR COMPLAINTS AT THIS TIME. CALL LIGHT WITHIN REACH.
--- NOTE | 2019-12-16 17:20 | NUR ---
PT TRANSFERED FROM CCU THIS SHIFT. HERE FOR CELLULITIS OF LLE LEADING TO SEPSIS. PT UP TO WALK WITH PHYSICAL THERAPY, SBA FWW. PT TOLERATING REGULAR DIET WITH IMPROVING APPITITE. PT ON TELE #3 WITH NORMAL SINUS RYTHEM, CONTINUING TO MONITOR. CPAP AT BEDSIDE FOR ASTROBIOLOGIST. IV VANCO INFUSION THROUGH RIGHT AC IV. LLE SWOLLEN WITH +2-3 EDEMA. (MEASURING AT 34CM), RED, AND HOT. REDNESS OUTLINED. PT VOIDING QUANTITY SUFFICIENT. PT USES CALL LIGHT APPROPRIATLY.
--- NOTE | 2019-12-16 17:39 | NUR ---
PT CALL LIGHT ON. PT UP TO RESTROOM WITH SBA, FWW. LARGE LOOSE BOWEL MOVEMENT NOTED. LETICIA CARE DONE. PT BACK TO CHAIR. VITALS TAKEN. I/Os RECORDED. WATER REFILLED. NO ADDITIONAL REQUESTS OR COMPLAINTS. CALL LIGHT WITHIN REACH.
--- NOTE | 2019-12-16 18:12 | NUR ---
PATIENT SITTING UP IN CHAIR. VITAL SIGNS AND I&O DONE BY RN. CALL LIGHT WITHIN REACH. NO OTHER NEEDS AT THIS TIME
--- NOTE | 2019-12-16 19:05 | NUR ---
SHIFT REPORT RECEIVED FROM DOMINGOKYSHAGGY PALACIO AT BEDSIDE. PT AWAKE AND RESTING IN CHAIR, ASSISTED TO BATHROOM WITH FWW TO VOID AND IS BACK IN BED. LLE ELEVATED W/ PILLOW, REDDNESS OUTLINED WITH SKIN MARKER. TELE#[address], NSR, RATE WNL. PT DENIES FURTHER NEEDS, CALL LIGHT IN REACH.
--- NOTE | 2019-12-16 22:30 | NUR ---
SCHEDULED IV ABX ADMINISTERED (SEE EMAR). PT REPORTS DISCOMFORT, ASSISTED WITH REPOSITIONING. DECLINES PRN OXYCODONE. BIPAP IN PLACE W/ 2LO2 BLEED IN. NO FURTHER NEEDS, CALL LIGHT IN REACH.
--- NOTE | 2019-12-17 00:10 | NUR ---
PT RESTING IN BED WITH EYES CLOSED, RESPIRATIONS EVEN AND UNLABORED. NO DISTRESS NOTED. TELE#[address], SINUS RHYTHM. RATE 69. BIPAP WITH 2LO2 BLEED THROUGH. CALL LIGHT IN REACH.
--- NOTE | 2019-12-17 00:15 | NUR ---
PT UP REQUESTING TO VOID. THIS RN IN ROOM TO ASSIST. PT UP SBA WITH FWW TO BATHROOM, VOID AND BM X1 NOTED. PT BACK IN BED, BIPAP WITH 2LO2 BLEED THROUGH IN PLACE. BLE ELEVATED WITH PILLOWS, BILATERAL PEDAL PULSES NOTED. CAP REFILL WNL. CALL LIGHT IN REACH.
--- NOTE | 2019-12-17 03:22 | NUR ---
PT RESTING IN BED WITH EYES CLOSED. RESPIRATIONS EVEN AND UNLABORED, NO DISTRESS OR SIGNS OF PAIN NOTED AT THIS TIME. BIPAP WITH 2LO2 BLEED THROUGH IN PLACE. CALL LIGHT IN REACH.
--- NOTE | 2019-12-17 04:08 | NUR ---
ASSESSMENT COMPLETE, NO NEW CHANGES OR CONCERNS. PT AWAKE AND WISHING TO TAKE OF BIPAP AT THIS TIME, SBA WITH FWW TO VOID. PT BACK IN BED, BLE ELEVATED WITH PILLOWS. LLE WARM TO THE TOUCH, CAP REFILL WNL. +3 EDEMA NOTED, PT DENIES FEELINGS OF INCREASING TIGHTNESS FROM EDEMA. WILL MONITOR. REDDNESS OUTLINED. PT DENIES SOB OR CHEST PAIN. NO FURTHER NEEDS, CALL LIGHT IN REACH.
--- NOTE | 2019-12-17 05:52 | NUR ---
VITALS AND I&OS DONE AND CHARTED. FRESH ICE WATER GIVEN. BEDSIDE TABLE AND CALL LIGHT IN REACH. PT NEEDS NOTHING MORE AT THIS TIME.
--- NOTE | 2019-12-17 05:59 | NUR ---
SCHEDULED THYROID MEDICATION AND IV ABX ADMINISTERED (SEE EMAR). PT RESTING IN CHAIR, FRESH WATER AT BEDSIDE. NO FURTHER NEEDS. CALL LIGHT IN REACH.
--- NOTE | 2019-12-17 07:38 | NUR ---
PATIENT SITTING UP IN CHAIR. PATIENT'S HANDS AND FACE CLEANED. CALL LIGHT WITHIN REACH. NO OTHER NEEDS AT THIS TIME
--- NOTE | 2019-12-17 08:35 | NUR ---
ENTERED pt ROOM TO CHECK ON pt. pt WAS SITTING IN CHAIR WITH WHEELS LOCKED, FEET UP, AND CALL LIGHT WITHIN REACH. pt NEEDED TO USE RESTROOM. pt AMBULATED TO RESTROOM AND THEN BACK TO CHAIR. pt WAS LEFT SITTING IN CHAIR WITH LEGS UP, WHEELS LOCKED, AND CALL LIGHT WITHIN REACH.
--- NOTE | 2019-12-17 08:55 | NUR ---
ENTERED pt ROOM TO ASK IF SHE WANTED STOOL SOFTENERS. WAS SITTING IN CHAIR WITH FEET UP , CALL LIGHT WITHIN REACH, AND WHEELS LOCKED. pt REFUSED STOOL SOFTENERS. pt LEFT IN SAME POSITION FOUND.
--- NOTE | 2019-12-17 08:58 | NUR ---
PATIENT SITTING UP IN CHAIR. VITAL SIGNS AND I&O DONE. CALL LIGHT WITHIN REACH. NO OTHER NEEDS AT THIS TIME
--- NOTE | 2019-12-17 09:37 | NUR ---
ENTERED pt ROOM TO PERFORM ASSESSMENT AND GIVE MEDICATIONS. pt SITTING IN CHAIR WITH LEGS UP, WHEELS LOCKED, AND CALL LIGHT WITHIN REACH. ASSESSMENT COMPLETED. pt AMBULATED TO THE RESTROOM AND BACK TO CHAIR. pt WAS LEFT IN CHAIR WITH LEGS ELEVATED, WHEELS LOCKED, AND CALL LIGHT WITHIN REACH.
--- NOTE | 2019-12-17 10:32 | NUR ---
CALL LIGHT ANSWERED. PATIENT USING THE BATHROOM. PATIENT BACKS TO CHAIR. PATIENT USES WALKER. ONE PERSON ASSISTING. CALL LIGHT WITHIN REACH. NO OTHER NEEDS AT THIS TIME
--- NOTE | 2019-12-17 11:44 | NUR ---
ENTERED pt ROOM TO CHECK ON pt. pt SITTING IN CHAIR WITH LEGS UP, WHEELS LOCKED AND CALL LIGHT WITHIN REACH. DR. SAUCEDO IN THE ROOM TALKING TO pt. pt EATING LUNCH IN SAME POSITION FOUND.
--- NOTE | 2019-12-17 11:58 | NUR ---
DR SAUCEDO INTO SEE PT NEW ORDERS, PT UP IN CHAIR EATTING LUNCH.
--- NOTE | 2019-12-17 12:18 | NUR ---
ENTERED pt ROOM TO CHECK ON pt. pt EATING LUNCH IN CHAIR. pt NEEDED NOTHING ELSE AT THIS TIME.
--- NOTE | 2019-12-17 12:41 | NUR ---
ORDER RECECIVED TELE IS TO BE DC'D. CCU NOTIFIED AND STUDENT NURSE WILL REMOVE FROM PT.
--- NOTE | 2019-12-17 13:00 | NUR ---
ENTERED pt ROOM TO ADMINISTER MEDICATION. pt JUST FINIHED WITH PHYSICAL THERAPIST. MEDICATION ADMINISTERED. pt NEEDED NOTHING ELSE AT THIS TIME.
--- NOTE | 2019-12-17 13:23 | NUR ---
PATIENT SITTING UP IN CHAIR. VITAL SIGNS AND I&O DONE. CALL LIGHT WITHIN REACH. NO OTHER NEEDS AT THIS TIME
--- NOTE | 2019-12-17 13:41 | NUR ---
PT UP TO THE BATHROOM VOIDED AND BACK TO THE CHAIR. CALL LIGHT WITHIN REACH.
--- NOTE | 2019-12-17 14:30 | NUR ---
ENTERED ROOM TO PERFROM ASSESSMENT. pt SITTING IN CHAIR WITH LEGS UP. ASSESSMENT COMPLETED. pT NEEDED NOTHING ELSE AT THIS TIME.
--- NOTE | 2019-12-17 15:33 | NUR ---
ENTERED ROOM TO CHECK ON pt. pt SITTING IN CHAIR WITH LEGS ELEVATED WITH CALL LIGHTS WITHIN REACH. pt NEEDED NOTHING AT THIS TIME. pt LEFT IN SAME POSITION FOUND.
--- NOTE | 2019-12-17 16:45 | NUR ---
ENTERED pt ROOM TO CHECK ON pt. pt SLEEPIN IN CHAIR WITH FEET ELEVATED. RESPIRATIONS EVEN AND UNLABORED. pt LEFT IN SAME POSITION FOUND.
--- NOTE | 2019-12-17 17:13 | NUR ---
PT CONTIOUES TO C/O TAO AND BACK PAIN. WARM PACK GIVEN AND PLACED ON HER LOWER NECK AND BACK. PT REMAINS UP IN THE CHAIR WITH HER FEET UP
--- NOTE | 2019-12-17 17:14 | NUR ---
ENTERED pt ROOM TO CHECK ON pt. WAS SITTING IN CHAIR WITH LEGS UP. pt NEEDED NOTHING AT THIS TIME. pt LEFT IN SAME POSITION FOUND WAITNG FOR DINNER.
--- NOTE | 2019-12-17 17:37 | NUR ---
THIS RESIDENTIAL THERAPIST AGREES WITH STUDENTS CHARTING ON THIS PATIENT. ASSESSMENT AND NOTES. THIS WRITERS NURSING ASSESSMENT'S AGREES WITH STUDENT NURSES.
--- NOTE | 2019-12-17 17:51 | NUR ---
PATIENT SITTING UP IN CHAIR. VITAL SIGNS AND I&O DONE. CALL LIGHT WITHIN REACH. NO OTHER NEEDS AT THIS TIME
--- NOTE | 2019-12-17 18:32 | NUR ---
ENTERED pt ROOM TO CHECK ON pt. pt SITTING IN CHAIR WATCHING TV. pt DID NOT NEED ANYTHING AT THIS TIME.
--- NOTE | 2019-12-17 19:27 | NUR ---
RECEIVED REPORT FROM DAY SHIFT. PT RESTING IN BED. WILL BE BACK TO ASSESS.
--- NOTE | 2019-12-17 19:30 | NUR ---
PER PT REQUST I HELPED HER GET INTO HER PJ.S . ALSO HELPED HER TO THE BATHROOM AND BACK TO BED. BEDSIDE TABLE AND CALL LIGHT IN REACH. PT NEEDS NOTHING MORE AT THIS TIME.
--- NOTE | 2019-12-17 20:15 | NUR ---
HR IRREGULAR, APICAL HR TAKEN BY THIS RN, RESULT OF 105. PT RESTING IN CHAIR, APPEARS COMFORTABLE. NO DISTRESS NOTED. PT DENIES CHEST PAIN AND SOB. DEBBIE RN IN ROOM FOR SECOND OPINION. PER LIAM LEWIS, HR SOUNDS IRREGULAR WITH RATE OF 110. LIAM LING MADE AWARE AND WILL OBTAIN FULL SET OF VITAL SIGNS AND NOTIFY DR SAUCEDO.
--- NOTE | 2019-12-17 20:28 | NUR ---
AT 2024 CALLED MD SAUCEDO. INFORMED ABOUT PT APICAL PULSE AT THE RANGE 105-110, IRREGULAR. BP 130/73, MAP 82. CLEAR LUNGS, PT DENIED CHEST PAIN. RECEIVED PHONE ORDER, READ BACK AND CONFIRMED TO START PT ON ATENOLOL 25 MG DAILY PO TO START NOW.
--- NOTE | 2019-12-17 21:00 | NUR ---
DR SAUCEDO ROUNDING AND AT NURSE'S STATION. PER DR SAUCEDO, ANDREWAY TO START NEW ORDER FOR ATENOLOL (SEE PREVIOUS RN NOTE) TONIGHT AND THEN CONTINUE DAILY FOR 0900.
--- NOTE | 2019-12-17 21:00 | NUR ---
IN THE PT ROOM. SHEDULED MED GIVEN, SEE MAR. DONE WITH ASSESSMENT. TACHYCARDIC. CMS INTACT. PITTING EDEMA NOTED ON AFFECTED LEG. PT ALERT, ORIENTED. FLUSHED IV WITH 10 ML OF NS. PATENT. DRESSING IS DRY, CLEAN, INTACT. PT AMBULATED WITH WALKER TO THE BATHROOM. VOIDED. BACK IN BED. CALL LIGHT IN REACH.
--- NOTE | 2019-12-17 23:15 | NUR ---
AT THE BEGINNING OF THE SHIFT PT DEVELOPED IRREGULAR HR, BECAME TACHYCARDIC, AT THE RANGE 105-110. MD SAUCEDO INFORMED. THIS NURSE RECEIVED PHONE ORDER, READ BACK AND CONFIRMED, TO START PT ON ATENOLOL 25 MG PO ONCE A DAY, OK TO START NOW. NO FURTHER ORDERS. PT WAS MEDICATED, SEE OCT.
--- NOTE | 2019-12-18 00:45 | NUR ---
HELPED PT TO THE BATHROOM AND BACK TO HER CHAIR WITH HER FWW. FRESH ICE WATER GIVEN. BEDSIDE TABLE AND CALL LIGHT IN REACH. PER PT REQUEST I GAVE HER A WET WASHCLOTH FOR HER FACE.
--- NOTE | 2019-12-18 00:50 | NUR ---
BLANCA NOVEMBER ASSISTING PT TO BATHROOM TO VOID. PT WISHES TO TAKE A BREAK FROM BIPAP MACHINE. PT DENIES NEED FOR OXYGEN ONCE BACK IN BED. NO FURTHER NEEDS VERBALIZED, WILL MONITOR.
--- NOTE | 2019-12-18 01:44 | NUR ---
COVID19 SPECIMEN COLLECTED PER PROTOCOL. PT VOIDED AT THE BEDSIDE COMMODE. BED IN LOW POSITION, CALL LIGHT IN REACH. NO NEEDS AT THE MOMENT. ,
--- NOTE | 2019-12-18 03:04 | NUR ---
PT IS UP IN HER RECLINER. CHECKED VS, DONE WITH ASSESSMNET. APICAL PULSE 78, RADIAL PULSE 2+ BILATERAL. SPO2 94% ON RA. BIPAP OFF, PT DENIES USE OF O2. DID NOT REPORT PAIN OR SOB. RR 20-21. BREATHING IS EVEN. AFFECTED LEG IS ELEVATED ON THE PILLOW, NO CHANGES FROM PREVIOUS ASSESSMENT. LIGHTS OFF IN THE ROOM. BED SIDE TABLE AND CALL LIGHT WITHING REACH.
--- NOTE | 2019-12-18 04:25 | NUR ---
PT AMBULATED WITH WALKER TO THE BATHROOM, VOIDED.BAck in a recliner. no pain or sob reported. call light in reach.
--- NOTE | 2019-12-18 06:23 | NUR ---
PT UP IN HER RECLINER. MEDICATED WITH SCHEDULED MEDS, SEE OCT. APICAL PULSE UNDER CONTROL WITH ATENOLOL, STILL IRREGULAR. PT DENIED PAIN AND SOB. RR22, SPO2 94% ON RA. PT REFUSED O2.
--- NOTE | 2019-12-18 06:25 | NUR ---
PT ALERT, ORIENTED. AT THE BEGINNING OF THE SHIFT DEVELOPED TACHYCARDIA AND IRREGULAR HR. NOTIFIED. RECEIVED PHONE ORDER, READ BACK AND CLARIFIED, TO START PT ON ATENOLO 25 MG PO ONCE A DAY NOW. PT RECEIVED HER SHEDULED MEDS. HR UNDER CONTROL DURING THIS NIGHT BUT STILL IRREGULAR. PT DENIED PAIN, DID NOT REPORT SOB. IN THE MIDDLE OF THE NIGHT TOOK BIPAP OFF AND MOVED FROM THE BED TO THE RECLINER. SPO2 94% ON RA. PT REFUSED TO WEAR O2. LLE - EDEMA 2+, NO CHANGES FROM YESTERDAY. AFFECTED LEG ELEVATED ON PILLOW.
--- NOTE | 2019-12-18 07:42 | NUR ---
AT SHIFT CHANGE IT WAS NOTED THAT COULD HAVE POSSIBLE INFILTRATION. SITE FLUSHED EASILY BUT HARDNESS NOTED ABOVE IV SITE. PT DENIED PAIN WHEN FLUSHING. DAY SHIFT RN JASON MADE AWARE AND WILL ASSESS THE SITE AND WILL REMOVE NEEDED.
--- NOTE | 2019-12-18 08:09 | NUR ---
PT AWAKE AND UP IN THE CHAIR AT THE TIME OF BEDSIDE REPORT. RETURNING LATER SHE HAS HER BREAKFAST, DENIES DISCOMFORTS OR OTHER NEEDS. CALL LIGHT AND NEEDED ITEMS AT CHAIR SIDE
[2019-12-18] MEDS ORDERED: ELIQUIS5 MG PO (08:48)
[2019-12-18] MEDS ORDERED: CEPHALEXIN500 MG PO (08:48)
--- NOTE | 2019-12-18 09:05 | NUR ---
dr berrios in to see pt dc discussed as well as med changes. notified md of bp 148/35 prior to giving atenolol he states go ahead and give this med, hold enoxeparin injection
--- NOTE | 2019-12-18 10:07 | NUR ---
PATIENT IN CHAIR RESTING. OFFERED PATIENT WARM WASHCLOTH, PATIENT SAID AM CARE WAS ALREADY DONE. FRESH WATER GIVEN. CALL LIGHT IN REACH. NO FURTHER NEEDS AT THIS TIME.
--- NOTE | 2019-12-18 10:18 | NUR ---
PT AGREES SHE IS READY TO DC PHARMACY IN FOR TEACHING PT VERBALIZES UNDERSTANDING. DENIES QUESTIONS
--- NOTE | 2019-12-18 10:20 | NUR ---
Spoke with Poppy. She is wanting to go home. States son or DIL will pick her up. Dr. Escalona is attempting determine pt's cost for [place]. Denies needs at home as family will assist her and grandson lives with them.
--- NOTE | 2019-12-18 10:42 | NUR ---
PT ASSISTED TO DRESS AFTER LOTION APPLIED SHE DENIES QUESTIONS OR CONCERNS
--- NOTE | 2019-12-18 11:00 | NUR ---
Mahin in room reviewing meds. Eliquis will cost $138. Pt states she can afford this. Called and updated DIL pt will dc, notified of cost of Eliquis. They can assist the pt if needed.
== END 2019-12-18 11:40 | disposition home or self-care (01) | DRG 872 ==
LOC: ED 20:44 → MS 22:17 → CCU 22:17 → MS 12-16 15:30
PROVIDERS: ADMIT Student in an Organized Health Care Education/Training Program
DX: A40.1 Sepsis due to streptococcus, group B (principal); L03.116 Cellulitis of left lower limb; N17.9 Acute kidney failure, unspecified; R65.20 Severe sepsis without septic shock; E03.9 Hypothyroidism, unspecified; I48.91 Unspecified atrial fibrillation; I10 Essential (primary) hypertension; M81.0 Age-related osteoporosis without current pathological fracture; Z88.8 Allergy status to other drugs, medicaments and biological substances; Z79.899 Other long term (current) drug therapy; Z79.891 Long term (current) use of opiate analgesic
CPT/HCPCS: 36415; 80048; 80053; 83605; 83735; 83880; 84100; 84484; 85025; 87040; 87077; 87186; 93005; 93010; 94660; 94760; 97110; 97116; 97162; 97530; 99284; J0690; J1650; J1940; J2405; J3370; J3475; J3480; J7040; J7060; J7121; U0002

== ENCOUNTER 2021-12-30 15:46 | Emergency (ER) | payer MEDICARE, OTHER ==
[~2021-12-30] VITALS: Ht 165.1 cm; Wt 132.0 kg
[~2021-12-30 15:46] MED LIST: ACTONEL150 MG PO; ADULT LOW DOSE81 MG PO; ATENOLOL50 MG PO; CALCIUM 500 +1 EAC2 PO; CEPHALEXIN500 MG PO; ELIQUIS5 MG PO; FUROSEMIDE40 MG PO; K-TAB ER20 MEQ PO; MULTIVITAMINS1 EAC7 PO; NORCO 5-325 TA1 EACH PO; ONDANSETRON ODT8 MG PO; SYNTHROID150 MCG PO; TEMOVATE15 GM TOP
--- NOTE | 2021-12-31 00:23 | EKG ---
[facility] [address] [place], [place] [address] Signed Normal sinus rhythm Normal ECG No previous ECGs available Confirmed by JERRELL ROSENBERG MD ([id number]) on 12/31/2021 12:23:22 AM Electronically Signed By: JERRELL ROSENBERG MD 12/31/2122 PATIENT NAME: CARROLL MENDIETA Electrocardiogram DATE OF : 40 PHYSICIAN: JERRELL ROSENBERG MD REPORT #: [id number] REPORT IS CONFIDENTIAL AND NOT TO BE RELEASED WITHOUT AUTHORIZATION
== END 2021-12-30 21:35 | disposition home or self-care (01) ==
LOC: ED 15:46
DX: I11.0 Hypertensive heart disease with heart failure (principal); I50.9 Heart failure, unspecified; Z79.01 Long term (current) use of anticoagulants; Z79.899 Other long term (current) drug therapy; Z88.8 Allergy status to other drugs, medicaments and biological substances
CPT/HCPCS: 36415; 71045; 80053; 83735; 83880; 84484; 85025; 93005; 93010; 96374; 99285-25; J1940

== ENCOUNTER 2022-07-12 09:42 | Emergency (ER) | payer MEDICARE, OTHER ==
[~2022-07-12] VITALS: Ht 165.1 cm; Wt 141.4 kg
[2022-07-12] MEDS ORDERED: CRESTOR40 MG NG (10:07)
[2022-07-12] MEDS ORDERED: EZALLOR SPRINKL10 MG PO (10:08)
--- NOTE | 2022-07-12 20:07 | EKG ---
[facility] [address] [place] [address] Signed Sinus rhythm with premature atrial complexes Nonspecific T wave abnormality Abnormal ECG When compared with ECG of 30-DEC-2021 17:18, premature atrial complexes are now present Nonspecific T wave abnormality, worse in Inferior leads Confirmed by JERRELL ROSENBERG MD ([id number]) on 07/12/2022 8:07:05 PM Electronically Signed By: JERRELL ROSENBERG MD 07/12/222006 PATIENT NAME: CARROLL MENDIETA Electrocardiogram DATE OF : 40 PHYSICIAN: JERRELL ROSENBERG MD REPORT #: [id number] REPORT IS CONFIDENTIAL AND NOT TO BE RELEASED WITHOUT AUTHORIZATION
== END 2022-07-12 12:29 | disposition home or self-care (01) ==
LOC: ED 09:42
DX: J10.1 Influenza due to other identified influenza virus with other respiratory manifestations (principal); Z20.822 Contact with and (suspected) exposure to COVID-19; I10 Essential (primary) hypertension; Z88.8 Allergy status to other drugs, medicaments and biological substances; Z79.899 Other long term (current) drug therapy
CPT/HCPCS: 36415; 71045; 80053; 83880; 85025; 87502; 93005; 93010; 96374; 99285-25; C9803; J1940; U0003